=== PATIENT | female | born 1950 | race Caucasian/White ===

== ENCOUNTER 2016-10-20 09:49 | Outpatient (CLI) | payer MEDICARE ==
--- NOTE | 2016-10-21 13:47 | XRAY Report ---
EXAM: ABDOMINAL SERIES AND PA CHEST EXAM DATE: 10/20/2016 10:57 AM. CLINICAL HISTORY: Abnormal weight loss. COMPARISON: Chest 04/08/2015. Lumbar spine 08/09/2015. TECHNIQUE: 2 views abdomen and 1 view chest. FINDINGS: CHEST: Lungs/Pleura: Pulmonary hyperinflation is without significant change. Mild predominantly peripheral i nterstitial infiltrates may represent fibrosis. Asymmetric focal infiltrate at the left lateral lung base is increased and may represent superimposed acute infiltrate. Focal density within the left infr ahilar region, superimposed over the heart, was not evident previously. No gross pleural effusion. No pneumothorax. Mediastinum: Within exam limitations, cardiomediastinal contour is normal. ABDOMEN: Bowel Gas Pattern: Within normal limits. No dilated loops or abnormal fluid levels. Free Air: None. Other: S-shaped thoracolumbar scoliosis redemonstrated with increased focal dextroconvexity curvature centered at T11. New moderate height loss of the left aspect of the T11 vertebral body and new mild rightward listhesis relative to T12. There may also be some increased sclerosis within the vertebral body which could be due to a healed or healing fracture but underlying blastic lesion is not excluded . IMPRESSION: 1. Pulmonary hyperinflation redemonstrated. 2. Mild bilateral peripheral interstitial infiltrate/fibrosis redemonstrated. 3. Focal opacity at the left lateral lung base has increased and could represent superimposed acute i nfiltrate. 4. Left infrahilar focal density. Focal infiltrate, pulmonary nodule or adenopathy are considerations . CT imaging with contrast could be performed for further evaluation. 5. New moderate height loss left aspect of the T11 vertebral body compared with 08/09/2015 with some a ssociated increased vertebral body sclerosis. This could represent a healed or healing insufficiency fracture but the age is otherwise indeterminate and underlying pathologic lesion is not excluded. If further evaluation were indicated, MR imaging would be recommended. [facility] Referring Provider Line: [phone] SITE ID: [id number]
== END 2016-10-20 09:50 | disposition home or self-care (01) ==
LOC: DI 09:49
PROVIDERS: ATTEND Family Medicine
DX: Z12.89 Encounter for screening for malignant neoplasm of other sites (principal); M89.8X9 Other specified disorders of bone, unspecified site; R63.4 Abnormal weight loss; R63.0 Anorexia
CPT/HCPCS: 74022

== ENCOUNTER 2016-11-06 11:50 | Outpatient (CLI) | payer MEDICARE ==
[2016-11-06] MEDS ORDERED: IOPAMIDOL-300 100 ML VIAL ONE (12:39)
[2016-11-06] MEDS ORDERED: IOPAMIDOL-300 50 ML VIAL ONE (12:39)
--- NOTE | 2016-11-09 14:28 | CT Report ---
EXAM: CT CHEST EXAM DATE: 11/06/2016 04:35 PM. CLINICAL HISTORY: T11-T12 LISTHESIS, LT THORACIC PX RADIATING TO ABD. COMPARISONS: None. TECHNIQUE: Routine helical CT imaging was performed through the chest. IV contrast: 80 cc of Isovue 3 00. Reconstructions: Coronal and sagittal. In accordance with CT protocol optimization, one or more of the following dose reduction techniques w ere utilized for this exam: automated exposure control, adjustment of mA and/or KV based on patient s ize, or use of iterative reconstructive technique. FINDINGS: Lungs/Pleura/mediastinum: Extensive emphysematous changes are noted throughout the lungs. There is a large left hilar mass. It measures approximately 4.2 x 5.6 x 7.5 cm (image 36 of series 5 and image 2 3 of series 8). The mass is encasing the left lower lobe pulmonary vein and causing near complete occ lusion. 2 peripheral-based masses are seen within the left lower lobe of the lung. The largest measures 4.2 x 2.3 cm (image 45 of series 6). The other measures 2.5 x 1.7 cm (image 53 of series 6). Enlarged med iastinal lymph nodes are seen. A conglomeration of lymph nodes within the aortopulmonary window measu res approximately 4.2 x 3.8 cm (image 27 of series 5). There is a subcarinal lesion. It measures 4.3 x 3.4 cm (image 33 of series 5). These findings are suspicious for a primary lung cancer with mediast inal metastases. No mass is within the right lung. There is no evidence of a pleural effusion or pneumothorax. The visualized upper abdominal organs are without evidence of an enhancing mass. Specifically no adre nal lesion is identified. There is severe hydronephrosis of the right kidney. Moderate to severe prox imal hydroureter is noted. There is a calculus in the right proximal ureter measuring approximately 2 mm (image 70 of series 5). The ureter at this level measures 10 mm. There is atherosclerosis of the aorta without evidence of aneurysmal dilatation. There is a burst fracture of T11 with approximately 5 mm of retropulsion into spinal canal. There is 60-70% loss of the normal vertebral body height anteriorly. Scoliosis of the thoracic spine convex to the right is noted. IMPRESSION: Perihilar and left lower lobe lung masses with extensive mediastinal adenopathy. This is suspicious for a primary lung cancer or other malignant process. Severe hydronephrosis and proximal hydroureter of the right kidney. 2 mm calculus in the severely dilated right proximal ureter. T11 burst fracture with approximately 5 mm of retropulsion into the spinal canal and 60-70% loss of t he normal vertebral body height. Please see the CT of the thoracic spine for further characterization . [facility] Referring Provider Line: [phone] SITE ID: [id number]
--- NOTE | 2016-11-09 16:04 | CT Report ---
EXAM: CT THORACIC SPINE WITH CONTRAST EXAM DATE: 11/08/2016 05:29 PM. CLINICAL HISTORY: Left thoracic pain radiating to the abdomen COMPARISONS: Lumbar radiograph 08/09/2015. TECHNIQUE: Thin-section axial images were acquired of the thoracic spine from C7 to L1 after administ ration of intravenous contrast. IV contrast: 80 cc Isovue 300. Post-processing: Coronal and sagittal reformats. Other: None. In accordance with CT protocol optimization, one or more of the following dose reduction techniques w ere utilized for this exam: automated exposure control, adjustment of mA and/or KV based on patient s ize, or use of iterative reconstructive technique. FINDINGS: Alignment: There is 30 degrees of levoconvex scoliotic curvature centered about T11. No definite late ral subluxation. There is focal kyphosis centered about T11 measuring approximately 37 degrees. Bones: There is a complete breast fracture seen at T11 with fractures involving the superior endplate, infer ior endplate, anterior vertebral body, and posterior vertebral body. There is approximately 80% verte bral body height loss as aspect of the vertebral body. There is approximately 6 mm bony retropulsion into the T10-T11 disk space. Additionally, there is suggestion of a fracture line extending into the left pedicle and through the left pars articularis. This suggest a posterior tension band disruption. No definite fracture seen within the left pedicle or left facet. There is a suspicious lytic lesion seen within the right aspect of vertebral body measuring 13 x 11 x 13 mm (cc by TRV AP) there is posterior cortical breakthrough with enhancing soft tissue seen extend ing into the T11 space measuring up to 6 mm (series 35, image 107). Overall findings suggest pathologic compression fracture. No definite additional vertebral body fract ure seen. No definite additional suspicious vertebral body lesion. Disk Levels/Facets: At T11 there is bony retropulsion as well as posterior cortical breakthrough of metastatic disease an d spread into the epidural space. This results in severe spinal canal stenosis. Musculature: Normal. No fatty atrophy. Other: There is diffuse emphysematous changes seen within the lungs. There is a large left hilar mass seen measuring 4.0 x 5.0 cm (series 35, image C6) with spread into the mediastinum. The mass causes compression of the left main pulmonary artery as well as branches of the left main pulmonary artery. Please refer to separately dictated CT chest for further details. There are pathologically enlarged n ecrotic lymph nodes seen within the AP window largest measuring 1.3 x 2.07 m of apparent series 35, i mage 64). There are several left lower lobe pulmonary masses seen the largest mineralization to the left aspect of the left vertebral body measuring 3.7 x 2.4 x 2.47 m of apparent cc by TRV AP). There is an addit ional lesion seen near the left lower lobe lung base measuring 1.6 x 2.0 cm (series 35, image 29). IMPRESSION: 1. There is a pathologic T11 vertebral body complete burst fracture with left posterior tension band disruption (AOSpine B2). There is approximately 80% body height loss of the left aspect vertebral bod y. There is posterior cortical breakthrough of disease with spread into the T11 spinal canal in combi [place] with bony retropulsion results in severe spinal canal stenosis. Consider MR thoracic spine wit h contrast for further evaluation. 2. No definite additional fracture seen. 3. There is 30 degrees of levoconvex scoliotic curvature centered about T11. No definite lateral subl uxation. There is focal kyphosis centered about T11 measuring approximately 37 degrees. 4. There is a large left hilar mass with extension into the mediastinum resulting in compression of t he left main pulmonary artery and branches. There is an additional 2 left lower lobe pulmonary masses seen. Please refer to separately dictated CT chest 11/06/2016 for further description of chest findin gs. [facility] The above findings were discussed with Don Oreilly by Dr. Shayne King at 15:59 hrs on 10/20 04/06. Referring Provider Line: [phone] SITE ID: [id number]
== END 2016-11-06 11:51 | disposition home or self-care (01) ==
LOC: DI 11:50
PROVIDERS: ATTEND Family Medicine
DX: R91.8 Other nonspecific abnormal finding of lung field (principal); N13.2 Hydronephrosis with renal and ureteral calculous obstruction; M84.48XA Pathological fracture, other site, initial encounter for fracture; M40.204 Unspecified kyphosis, thoracic region
CPT/HCPCS: 71260; 72129; Q9967

== ENCOUNTER 2016-12-31 09:00 | Day surgery (SDC) | payer MEDICARE ==
[~2016-12-31 09:00] MED LIST: ceFAZolin 2 GM/50 ML 2 GM/50 ML BAG IV ONE
[2016-12-31] MEDS ORDERED: LACTATED RINGERS 1,000 ML IV ONE ×2 (09:25→12:29)
[2016-12-31] MEDS ORDERED: LIDOCAINE 1% 50 ML MDV SUBQ ONE (11:32)
[2016-12-31] MEDS ORDERED: BUPIVACAINE 0.5% PF 30 ML VIAL INFIL ONE (11:33)
[2016-12-31] MEDS ORDERED: PROPOFOL 200 MG/20 ML VIAL IVP ONE (11:50)
[2016-12-31] MEDS ORDERED: fentaNYL 100 MCG/2 ML VIAL IVP ONE (11:50)
--- NOTE | 2016-12-31 12:43 | XRAY Report ---
INTRAOPERATIVE IMAGING OF PORT PLACEMENT: 12/31/2016 CLINICAL INDICATION: Port placement. FINDINGS: A single intraoperative matrix image demonstrates a left jugular catheter terminating in t he distal superior vena cava. IMPRESSION: INTRAOPERATIVE IMAGING OF PORT PLACEMENT. 14 SECONDS OF FLUOROSCOPY TIME WAS PROVIDED TO DR. PERSAUD; 1 SPOT IMAGE OBTAINED. JOB #: [id number] EXT JOB #:[id number]
--- NOTE | 2016-12-31 13:17 | XRAY Report ---
FRONTAL CHEST: 12/31/2016 CLINICAL INDICATION: Port placement. FINDINGS: Frontal view of the chest demonstrates a normal cardiac silhouette. The left jugular port terminates in the superior vena cava distally. The lungs demonstrate mild fibrosis. No focal consolid ation, effusion, or pneumothorax is present. Please also refer to chest CT of 11/06/2016. IMPRESSION: LEFT JUGULAR PORT TERMINATING IN THE SUPERIOR VENA CAVA DISTALLY. JOB #: [id number] EXT JOB #:[id number]
[2016-12-31 13:45] VITALS: BP 122/78
--- NOTE | 2017-01-01 03:32 | OPERATIVE REPORT ---
DATE OF SURGERY: 12/31/2016 00:00:00 SURGEON: Ruth Dao MD. PREOPERATIVE DIAGNOSIS: Metastatic lung cancer. POSTOPERATIVE DIAGNOSIS: Metastatic lung cancer. NAME OF PROCEDURE: Port-A-Cath placement. INDICATION FOR PROCEDURE: This is a 66-year-old female with metastatic colon cancer who will be undergoing chemotherapy. FINDINGS: After obtaining informed consent from the patient, she was brought into the operating room and positioned on the operating table in the supine position with a shoulder roll placed. She was administered sedation. She was then prepped and draped in the usual sterile fashion and a time-out was taken according to protocol. Under ultrasound guidance, the left internal jugular vein was accessed on the first attempt and a wire was threaded easily. Upon threading the wire, the fluoroscopy machine that was was not working and a second fluoroscopy machine had to be brought in. I eventually was able to view the guidewire under fluoroscopic guidance and it was noted to be crossing the midline and descending towards the diaphragm. The MediPort pocket was then created by creating a 2 cm incision in the left chest wall after injecting 10 mL of lidocaine. This was dissected down to the pectoralis muscle fascia and a pocket was created inferiorly. Lidocaine was then inserted into the tunneling region and the tunneling device was utilized to bring the catheter from the MediPort pocket site to the catheter insertion site. The dilator and peel-away sheath were inserted over the guidewire. The guidewire and dilator catheter were removed, and the catheter placed in through the peel-away sheath. The sheath was then peeled away. The catheter was then again viewed on fluoroscopy and was pulled back slightly allowing the tip of the catheter to sit at the SVC/ IVC junction. The catheter was again cut to the appropriate length and the port attached to the catheter. It was then sutured into place to the pectoralis fascia using 2 interrupted 2-0 Prolene sutures. The catheter was accessed with the Laureano needle and was noted to have good blood return and easy flow with heparinized saline. The subcutaneous tissue was then reapproximated with 3-0 Vicryl and the skin closed with 4-0 Monocryl. Dermabond was applied to both incisions. The patient was then taken to recovery room in stable condition. A postoperative chest x-ray demonstrated no evidence of pneumothorax and good positioning of the catheter. Specimen: None Complication: Failure of flouroscopy machine JOB #: [id number] EXT JOB #:[id number] [facility]
== END 2016-12-31 09:01 | disposition home or self-care (01) ==
LOC: SDS 09:00
PROVIDERS: ATTEND Surgery
PROC: 05HN33Z Insertion of Infusion Device into Left Internal Jugular Vein, Percutaneous Approach (ICD-10-PCS; 2016-12-31)
PROC: 0JH60WZ Insertion of Totally Implantable Vascular Access Device into Chest Subcutaneous Tissue and Fascia, Open Approach (ICD-10-PCS; principal; 2016-12-31 10:30)
DX: C34.90 Malignant neoplasm of unspecified part of unspecified bronchus or lung (principal); J44.9 Chronic obstructive pulmonary disease, unspecified; Z87.891 Personal history of nicotine dependence
CPT/HCPCS: 36561; 71010; C1788; J0690; J7120

== ENCOUNTER 2017-04-01 10:37 | Outpatient (CLI) | payer MEDICARE ==
[2017-04-01] MEDS ORDERED: IOPAMIDOL-300 100 ML VIAL ONE (10:55)
[2017-04-01] MEDS ORDERED: IOPAMIDOL-300 50 ML VIAL ONE (10:55)
[2017-04-01] MEDS ORDERED: IOPAMIDOL-300 100 ML VIAL IVP ONE (12:29)
[2017-04-01] MEDS ORDERED: IOPAMIDOL-300 50 ML VIAL PO ONE (12:29)
[2017-04-01] MEDS ORDERED: SODIUM CHLORIDE FLUSH 0.9% 10 ML SYRINGE ONE (12:52)
--- NOTE | 2017-04-01 15:47 | CT Report ---
CT OF CHEST WITH CONTRAST: 04/01/2017 CLINICAL INDICATION: Lung cancer. TECHNIQUE: Axial CT images of the chest were obtained with 80 mL Isovue 300 intravenously. COMPARISON: 02/04/2017. FINDINGS: The heart and great vessels are unremarkable. Previously seen adenopathy continues to regress. The previously identified mass in the left lower lobe now measures 1.5 x 1.0 cm (previously 3.4 x 1.6 cm), and the more lateral left lower lobe lesion now measures 1.2 x 0.8 cm (1.5 x 1.3 cm previously). Extensive emphysema is unchanged. No effusion or pneumothorax is present. Osseous structures demonstrate postsurgical and degenerative changes. IMPRESSION: DECREASING SIZE OF LEFT LOWER LOBE PULMONARY LESIONS AND MEDIASTINAL ADENOPATHY. NO NEW ABNORMALITY. In accordance with CT protocol optimization, one or more of the following dose reduction techniques were utilized for this exam: automated exposure control, adjustment of mA and/or KV based on patient size, or use of iterative reconstructive technique. TD: 04/01/2017 15:46
--- NOTE | 2017-04-01 15:51 | CT Report ---
CT OF THE ABDOMEN AND PELVIS WITH CONTRAST: 04/01/2017 CLINICAL INDICATION: Lung cancer followup. COMPARISON: 02/04/2017 TECHNIQUE: Axial CT images of the abdomen and pelvis were obtained with 80 mL Isovue 300 intravenously as well as oral contrast. FINDINGS: ABDOMEN: Marked right hydronephrosis is again seen. The left kidney demonstrates a nonobstructing 3 mm upper pole calculus, and a lower pole cyst. The liver demonstrates decrease in size of the hypodensity in the lateral right lobe, now measuring 8 mm (previously 13 mm). Other smaller hypodensities in the liver are stable. No new hepatic lesion is seen. The spleen, pancreas, and adrenal glands are unremarkable. The gallbladder is not dilated. No bowel dilatation, free gas, or free fluid is present. PELVIS: Right hydroureter again extends into the pelvis. Consider urologic consultation. No pelvic adenopathy or free fluid is present. Osseous structures demonstrate degenerative and postsurgical changes. IMPRESSION: 1. INTERVAL DECREASE IN SIZE OF THE LARGEST HYPODENSITY IN THE LATERAL RIGHT LOBE OF THE LIVER. 2. PERSISTENT RIGHT HYDRONEPHROSIS AND HYDROURETER. CONSIDER UROLOGIC REFERRAL. In accordance with CT protocol optimization, one or more of the following dose reduction techniques were utilized for this exam: automated exposure control, adjustment of mA and/or KV based on patient size, or use of iterative reconstructive technique. TD: 04/01/2017 15:50
== END 2017-04-01 10:38 | disposition home or self-care (01) ==
LOC: DI 10:37
PROVIDERS: ATTEND Internal Medicine Hematology & Oncology
DX: C34.90 Malignant neoplasm of unspecified part of unspecified bronchus or lung (principal); K76.9 Liver disease, unspecified; N13.30 Unspecified hydronephrosis; N20.0 Calculus of kidney
CPT/HCPCS: 71260; 74177; Q9967

== ENCOUNTER 2017-04-03 13:30 | Outpatient (CLI) | payer MEDICARE ==
[2017-04-03] MEDS ORDERED: GADOBUTROL 7.5 MMOL/7.5 ML VIAL IVP ONE (14:23)
--- NOTE | 2017-04-03 16:04 | MRI Report ---
EXAM: MRI BRAIN WITHOUT AND WITH CONTRAST EXAM DATE: 04/03/2017 02:33 PM. CLINICAL HISTORY: Lung cancer. COMPARISON: None. TECHNIQUE: Multiplanar, multisequence T1-weighted and fluid-sensitive MR sequences of the brain were performed. Sequences optimized for routine evaluation. Other: None. IV Contrast: Without and with 3.5 mm Gadavist. FINDINGS: Brain Volume: Normal for age. Parenchyma: No acute infarct or hemorrhage. Probable chronic microhemorrhages in the right temporal l obe and left cerebellum. No mass-effect, midline shift or abnormal subdural fluid collection. Moderat edel prominent multifocal cerebral white matter disease. Numerous scattered foci of patchy, nodular an d confluent T2 hyperintensity are present in both cerebral hemispheres, mainly involving the deep and periventricular regions. There is also fairly prominent amorphous T2 hyperintensity throughout the p ons. No intracranial enhancing or space-occupying mass or nodule, no evidence for intracranial metastatic disease. Contrast opacification of the major dural venous sinuses is present as expected. Ventricles/Cisterns: No hydrocephalus. Orbits: Symmetric and unremarkable. Sella Turcica: Occupying mass in the region of the pituitary fossa. IAC: No enhancing or space-occupying lesion. Vasculature: The major arterial skull base flow voids are present. Sinuses: No acute-appearing sinus or mastoid disease. Bones: Partially visualized multilevel hypertrophic degenerative cervical spinal spondylosis. No evid ence for focal pathologic-appearing marrow signal changes in the skull or clivus. Other: None. IMPRESSION: 1.No evidence for enhancing intracranial metastatic disease. 2. No acute infarct. 3. Prominent white matter disease above and below the tentorium, nonspecific, likely attributable to aging and chronic microangiopathy. 4. Probable chronic microhemorrhages of the right temporal lobe and left cerebellum. 5. Prominent degenerative changes in the cervical spinal column. [facility] Referring Provider Line: [phone] SITE ID: [id number]
== END 2017-04-03 13:31 | disposition home or self-care (01) ==
LOC: DI 13:30
PROVIDERS: ATTEND Internal Medicine Hematology & Oncology
DX: C34.90 Malignant neoplasm of unspecified part of unspecified bronchus or lung (principal); R90.89 Other abnormal findings on diagnostic imaging of central nervous system; M47.9 Spondylosis, unspecified
CPT/HCPCS: 70553

== ENCOUNTER 2017-05-20 06:08 | Emergency (ER) | payer MEDICARE ==
[2017-05-20] MEDS ORDERED: SODIUM CHLORIDE 0.9% 500 ML IV ONE ×2 (06:28→08:03)
[2017-05-20] MEDS ORDERED: IPRATROPIUM/ALBUTEROL 3 ML NEB INH STA (06:29)
[2017-05-20 06:43] LABS: BASOPHILS # (AUTO) 0.1 10^3/uL (0.0-0.1); BASOPHILS % (AUTO) 0.9 %; EOSINOPHILS % (AUTO) 0.5 %; HGB - HEMOGLOBIN 10.7 g/dL (12.0-16.0); LYMPHOCYTES # (AUTO) 1.9 10^3/uL (1.5-3.5); LYMPHOCYTES % (AUTO) 20.1 %; MEAN CORPUSCULAR HEMOGLOBIN 33.6 pg (27.0-31.0); MEAN CORPUSCULAR HGB CONC 32.9 g/dL (32.0-36.0); MEAN CORPUSCULAR VOLUME 102.1 fL (81.0-99.0); MEAN PLATELET VOLUME 7.8 fL (7.9-10.8); MONOCYTES # (AUTO) 1.1 10^3/uL (0.0-1.0); MONOCYTES % (AUTO) 11.2 %; NEUTROPHILS # (AUTO) 6.4 10^3/uL (1.5-6.6); NEUTROPHILS % (AUTO) 67.3 %; PLT - PLATELET COUNT 260 10^3/uL (130-450); RED CELL DISTRIBUTION WIDTH 15.7 % (12.0-15.0); WHITE BLOOD COUNT 9.5 x10^3/uL (4.8-10.8)
--- NOTE | 2017-05-20 06:51 | ED Physician Documentation ---
PD HPI DYSPNEA - Stated complaint Stated Complaint: SOA - Chief complaint Chief Complaint: Resp - History obtained from History obtained from: Patient - History of Present Illness Timing - onset: How many weeks ago (1) Timing - details: Gradual onset Worsened by: Coughing Associated symptoms: Cough Recently seen: Clinic - Treatment prior to arrival Treatment prior to arrival: Zithromax - Additional information Additional information: The patient is a 66-year-old female with history of COPD and small cell lung cancer, who presents with cough of at least one week's duration. She reports scant sputum production, but increasing shortness of breath. Coughing causes pain in her back where she is 5 months status post placement of House rods for lower thoracic vertebral body disintegration. In addition she complains of sore throat and right earache. She denies fever, headache, abdominal pain, nausea or vomiting. She was seen by primary physician 5 days ago and was started on Zithromax for her cough. She last was treated with chemotherapy about 1 month ago. Review of Systems Constitutional: denies: Fever Nose: denies: Congestion Throat: reports: Sore throat Cardiac: denies: Chest pain / pressure Respiratory: reports: Dyspnea, Cough GI: denies: Abdominal Pain, Nausea, Vomiting : denies: Dysuria Skin: denies: Rash Musculoskeletal: reports: Back pain Neurologic: reports: Generalized weakness. 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 HEENT: Tonsil/Adenoidectomy - Present Medications Home Medications: Ambulatory Orders Medication Instructions Recorded Confirmed Estradiol 2 mg PO DAILY 04/08/15 05/14/17 Omeprazole 1 cap PO DAILY 04/08/15 05/14/17 traMADol [Ultram] 1 - 2 tab PO DAILY PM 04/08/15 05/14/17 Dexamethasone 8 mg PO DAILYX3 MDD s/p chemo x 3 12/27/16 05/14/17 days Ondansetron [Ondansetron Odt] 4 mg PO Q4H PRN 12/27/16 05/14/17 Prochlorperazine Maleate 10 mg PO Q6H PRN 12/27/16 05/14/17 [Compazine] Simvastatin 20 mg PO DAILY 12/28/16 05/14/17 oxyCODONE [Roxicodone] 5 - 10 mg PO Q4H PRN 01/29/17 05/14/17 Albuterol Sulfate [Proventil Hfa 1 - 2 puffs INH Q4H PRN #1 inhaler 05/20/17 Inhaler] Doxycycline Monohydrate 100 mg PO BID #14 tablet 05/20/17 predniSONE [Prednisone] 30 mg PO DAILY #15 tablet 05/20/17 - Allergies Allergies/Adverse Reactions: Allergies Allergy/AdvReac Type Severity Reaction Status Date / Time Sulfa (Sulfonamide Allergy Severe Edema Verified 05/20/17 06:15 Antibiotics) epinephrine AdvReac palpitation Verified 05/20/17 06:15 s - Social History Does the pt smoke?: Yes Smoking Status: Current every day smoker Does the pt drink ETOH?: No Does the pt have substance abuse?: No - Immunizations Immunizations are current?: Yes - POLST Patient has POLST: No PD ED PE NORMAL - Vitals Vital signs reviewed: Yes (Tachycardic) - General General: Alert and oriented X 3, Other (Frail appearing) - HEENT HEENT: Atraumatic, Moist mucous membranes, Pharynx benign, Other (Right tympanic membrane is dull and bulging, with loss of landmarks.) - Neck Neck: Supple, no meningeal sign, No adenopathy, No JVD - Cardiac Cardiac: Other (rapid rate, regular rhythm) - Respiratory Respiratory: Other (Faint crackles on the right, with few scattered expiratory and end-inspiratory wheezes. No rales.) - Abdomen Abdomen: Soft, Non tender - Back Back: Other (Well healed surgical scar in lower thoracic region.) - Derm Derm: No rash - Extremities Extremities: No edema, No calf tenderness / cord - Neuro Neuro: Alert and oriented X 3, No motor deficit, No sensory deficit Results - Vitals Vitals: Vital Signs - 24 hr 05/20/17 05/20/17 05/20/17 06:12 06:29 07:13 Temperature 36.8 C Heart Rate 131 H 100 104 H Respiratory 14 19 18 Rate Blood Pressure 139/111 H 144/71 H O2 Saturation 93 98 05/20/17 08:23 Temperature Heart Rate 108 H Respiratory 28 H Rate Blood Pressure 130/81 H O2 Saturation 100 Oxygen O2 Source Nasal cannula Oxygen Flow Rate 2 - EKG (time done) 06:36 Rate: Rate (enter#) (109) Rhythm: Sinus tachycardia, LAE Callao: Normal QRS: Low voltage Ischemia: Normal ST segments Computer interpretation: Agree with computer - Labs Labs: Laboratory Tests 05/20/17 05/20/17 05/20/17 06:30 06:30 06:30 WBC 9.5 RBC 3.20 L Hgb 10.7 L Hct 32.6 L MCV 102.1 H MCH 33.6 H MCHC 32.9 RDW 15.7 H Plt Count 260 MPV 7.8 L Neut # 6.4 Lymph # 1.9 Day # 1.1 H Eos # 0.0 Baso # 0.1 Absolute Nucleated RBC 0.00 Nucleated RBC % 0.0 Sodium 135 Potassium 3.7 Chloride 104 Carbon Dioxide 19 L Anion Gap 12.0 BUN 29 H Creatinine 1.0 Estimated GFR (MDRD) 56 L Glucose 108 H Lactic Acid Calcium 9.2 Total Bilirubin 0.3 AST 35 ALT 27 Alkaline Phosphatase 80 B-Natriuretic Peptide 15 Total Protein 8.6 H Albumin 3.9 Globulin 4.7 H Albumin/Globulin Ratio 0.8 L Lipase 29 05/20/17 06:30 WBC RBC Hgb Hct MCV MCH MCHC RDW Plt Count MPV Neut # Lymph # Day # Eos # Baso # Absolute Nucleated RBC Nucleated RBC % Sodium Potassium Chloride Carbon Dioxide Anion Gap BUN Creatinine Estimated GFR (MDRD) Glucose Lactic Acid 1.2 Calcium Total Bilirubin AST ALT Alkaline Phosphatase B-Natriuretic Peptide Total Protein Albumin Globulin Albumin/Globulin Ratio Lipase - Rads (name of study) 2 -view CXR Radiology: Prelim report reviewed, EMP read contemporaneously, See rad report (1 ) Right basilar infiltrate/atelectasis. 2) Faint visualization of left lower lung masses. 3) COPD.) PD MEDICAL DECISION MAKING - ED course Complexity details: reviewed old records, reviewed results, re-evaluated patient , considered differential, d/w patient ED course: The patient's presentation is most consistent with right lower lobe pneumonia, as seen by infiltrate on chest x-ray. In addition she has wheezing consistent with exacerbation of COPD. Her presentation does not suggest pulmonary embolus. There is no evidence of congestive heart failure. Further diagnoses include right otitis media, and history of lung cancer, 1 month status post chemotherapy. Treatment in the emergency department included administration of DuoNeb nebulizer followed later with Xopenex nebulizer treatment. Dexamethasone 10 mg was administered orally, ceftriaxone 1 g was administered IV, and normal saline 500 mL was administered IV. The patient's symptoms improved with the above treatment. She felt subjectively improved, and on reexamination she has improved air movement on auscultation of her chest. She is being discharged with prescriptions for albuterol inhaler, doxycycline, and prednisone. I discussed with her the diagnosis, antibiotic treatment and outpatient follow-up, as well as potentially worrisome signs or symptoms that should prompt reevaluation in the emergency department. Departure - Departure Disposition: 01 Home, Self Care Clinical Impression: COPD exacerbation, History of lung cancer Pneumonia Qualifiers: Pneumonia type: due to unspecified organism Laterality: right Lung location: lower lobe of lung Qualified Code(s): J18.1 - Lobar pneumonia, unspecified organism Right otitis media Qualifiers: Otitis media type: suppurative Chronicity: acute Recurrence: not specified as recurrent Spontaneous tympanic membrane rupture: without spontaneous rupture Qualified Code(s): H66.001 - Acute suppurative otitis media without spontaneous rupture of ear drum, right ear Condition: Stable Instructions: ED Otitis Media Acute Adult, ED Pneumonia Adult Follow-Up: GREGG ZAMAN [Primary Care Provider] - Prescriptions: Albuterol Sulfate [Proventil Hfa Inhaler] 1 - 2 puffs INH Q4H PRN #1 inhaler PRN Reason: Shortness Of Air/Wheezing Doxycycline Monohydrate 100 mg PO BID #14 tablet predniSONE [Prednisone] 30 mg PO DAILY #15 tablet Comments: Take doxycycline twice daily as prescribed. Use the albuterol inhaler as frequently as every 2-4 hours if needed for shortness of breath or wheezing. Take prednisone daily for five as prescribed. Follow up with your primary physician within 1 week. Call to schedule an appointment. Return to the emergency department if you develop increasing difficulty breathing, or otherwise worsening symptoms. Discharge Date/Time: 05/20/17 09:29
[2017-05-20 06:57] LABS: ALBUMIN 3.9 g/dL (3.2-5.5); ALBUMIN/GLOBULIN RATIO 0.8 (1.0-2.2); BILIRUBIN,TOTAL 0.3 mg/dL (0.2-1.0); CALCIUM 9.2 mg/dL (8.5-10.3); TOTAL PROTEIN 8.6 g/dL (6.7-8.2)
--- NOTE | 2017-05-20 07:56 | XRAY Report ---
EXAM: CHEST RADIOGRAPHY EXAM DATE: 05/20/2017 07:39 AM. CLINICAL HISTORY: Cough with dyspnea. History of lung cancer COMPARISON: 04/01/2017. TECHNIQUE: 2 views. FINDINGS: Lungs/Pleura: Right basilar infiltrate, atelectasis Left lower lobe lung masses not as well seen No p leural effusion. No pneumothorax. Increased volumes. Mediastinum: Heart and mediastinal contours are unremarkable. Other: Left-sided Port-A-Cath tip in the lower SVC. Postop thoracic spine surgery. IMPRESSION: 1. Right basilar infiltrate/atelectasis. 2. Faint visualization of left lower lung masses. 3.. COPD [facility] Referring Provider Line: [phone] SITE ID: [id number]
--- NOTE | 2017-05-20 07:56 | XRAY Preliminary Report ---
Exam: XR CHEST 2 VIEW X-RAY IMPRESSION: 1. Right basilar infiltrate/atelectasis. 2. Faint visualization of left lower lung masses. 3.. COPD [facility] SITE ID: [id number]
[2017-05-20] MEDS ORDERED: cefTRIAXone 1 GM VIAL IVP STA (08:02)
[2017-05-20] MEDS ORDERED: LEVALBUTEROL 1.25 MG/3 ML NEB INH STA (08:03)
[2017-05-20] MEDS ORDERED: DEXAMETHASONE 10 MG/ML VIAL PO STA (08:04)
[2017-05-20 08:24] VITALS: BP 130/81
== END 2017-05-20 09:29 | disposition home or self-care (01) ==
LOC: ED 06:08
DX: J18.9 Pneumonia, unspecified organism (principal); H66.001 Acute suppurative otitis media without spontaneous rupture of ear drum, right ear; J44.1 Chronic obstructive pulmonary disease with (acute) exacerbation; Z85.118 Personal history of other malignant neoplasm of bronchus and lung; E78.00 Pure hypercholesterolemia, unspecified; M06.9 Rheumatoid arthritis, unspecified; K21.9 Gastro-esophageal reflux disease without esophagitis; F17.200 Nicotine dependence, unspecified, uncomplicated
CPT/HCPCS: 36415; 71046; 80053; 83605; 83690; 83880; 85025; 93005; 94640; 96361; 96374; 99284

== ENCOUNTER 2017-05-22 12:11 | Inpatient (IN) | payer MEDICAID, MEDICARE ==
[2017-05-22] MEDS ORDERED: PIPERACILLIN/TAZOBACTAM 3.375 GM in SODIUM CHLORIDE 0.9% MINIBAG 100 ML IV STA (12:28)
[2017-05-22] MEDS ORDERED: DEXAMETHASONE 10 MG/ML VIAL PO STA (12:29)
[2017-05-22] MEDS ORDERED: ALBUTEROL NEB 2.5 MG/3 ML INH STA (12:29)
--- NOTE | 2017-05-22 12:39 | ED Physician Documentation ---
History of Present Illness - Stated complaint Stated Complaint: DIFF BREATHING - Chief complaint Chief Complaint: Resp - Additonal information Additional information: hx from pt 66 f hx COPD known metastatic stage 4 lung cancer, last chemo approx 4 weeks ago due to started radiation recent cough sx saw PMD dx bronchitis rx an ab then to ER 2 days ago dx pna dc on zmax and doxy and also steroids and nebs got worse to PMD today severe resp distress and hypoxia given a steroid shot and 2 nebs, still hypoxic sent to ED POV arrives in sig resp distress has her POLST with her - full code - but would NOT WANT TO BE INTUBATED Review of Systems Constitutional: reports: Fatigue. denies: Fever Cardiac: denies: Chest pain / pressure Respiratory: reports: Dyspnea, Cough GI: reports: Other (poor appetite). 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, 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 HEENT: Tonsil/Adenoidectomy - Present Medications Home Medications: Ambulatory Orders Medication Instructions Recorded Confirmed Estradiol 1 mg PO DAILY 04/08/15 05/22/17 Omeprazole 40 mg PO DAILY 04/08/15 05/22/17 traMADol [Ultram] 1 - 2 tab PO DAILY PM 04/08/15 05/14/17 Dexamethasone 8 mg PO DAILYX3 MDD s/p chemo x 3 12/27/16 05/14/17 days Ondansetron [Ondansetron Odt] 4 mg PO Q4H PRN 12/27/16 05/14/17 Prochlorperazine Maleate 10 mg PO Q6H PRN 12/27/16 05/14/17 [Compazine] Simvastatin 20 mg PO DAILY 12/28/16 05/14/17 oxyCODONE [Roxicodone] 5 - 10 mg PO Q4H PRN 01/29/17 05/14/17 Albuterol Sulfate [Proventil Hfa 1 - 2 puffs INH Q4H PRN #1 inhaler 05/20/17 Inhaler] Doxycycline Monohydrate 100 mg PO BID #14 tablet 05/20/17 predniSONE [Prednisone] 30 mg PO DAILY #15 tablet 05/20/17 Gabapentin [Gabapentin] 300 mg PO QPM 05/22/17 05/22/17 - Allergies Allergies/Adverse Reactions: Allergies Allergy/AdvReac Type Severity Reaction Status Date / Time Sulfa (Sulfonamide Allergy Severe Edema Verified 05/22/17 12:20 Antibiotics) epinephrine AdvReac palpitation Verified 05/20/17 06:15 s - Social History Does the pt smoke?: Yes Smoking Status: Current every day smoker Does the pt drink ETOH?: No Does the pt have substance abuse?: No - Immunizations Immunizations are current?: Yes - POLST Patient has POLST: No PD ED PE NORMAL - Vitals Vital signs reviewed: Yes (hypoxic tachypneic) - General General: Other (resp distress) - Neck Neck: Supple, no meningeal sign - Cardiac Cardiac: RRR, Other (port s infection) - Respiratory Respiratory: Other (mishel ronchi and wheezes and resp distress) - Abdomen Abdomen: Soft, Non tender - Derm Derm: Normal color - Extremities Extremities: No deformity, No edema, No calf tenderness / cord Results - Vitals Vitals: Vital Signs - 24 hr 05/22/17 05/22/17 05/22/17 12:15 12:18 12:21 Temperature 36.8 C Heart Rate 112 H 97 Respiratory 34 H 15 Rate Blood Pressure 166/122 H 139/93 H O2 Saturation 98 81 L 97 05/22/17 05/22/17 05/22/17 12:33 13:12 13:41 Temperature Heart Rate 121 H 109 H Respiratory 16 18 Rate Blood Pressure 144/94 H O2 Saturation 96 97 Oxygen O2 Source Nasal cannula Oxygen Flow Rate 4 - EKG (time done) 1220 Rate: Rate (enter#) (88) Rhythm: NSR, Other (PACs PVCs) Ischemia: Non specific changes - Labs Labs: Laboratory Tests 05/22/17 05/22/17 05/22/17 12:58 12:58 12:58 WBC 15.8 H RBC 3.29 L Hgb 11.2 L Hct 33.8 L MCV 102.7 H MCH 34.0 H MCHC 33.1 RDW 15.8 H Plt Count 285 MPV 7.9 Neut # 13.4 H Lymph # 1.6 Ransom # 0.7 Eos # 0.0 Baso # 0.0 Absolute Nucleated RBC 0.02 Nucleated RBC % 0.1 Sodium 134 L Potassium 3.5 Chloride 102 Carbon Dioxide 20 L Anion Gap 12.0 BUN 30 H Creatinine 0.8 Estimated GFR (MDRD) 72 L Glucose 127 H Lactic Acid 2.8 H Calcium 9.5 Total Bilirubin 0.4 AST 37 ALT 26 Alkaline Phosphatase 82 Total Protein 8.4 H Albumin 3.9 Globulin 4.5 H Albumin/Globulin Ratio 0.9 L Lipase 19 L - Rads (name of study) CXR Radiology: See rad report (no change from 2 days ago (that was read as possible R basilar infiltrate and todays read is no change)) PD MEDICAL DECISION MAKING - ED course ED course: known pna known COPD severe resp distress despite steroids and nebs given IV zosyn upon arrival 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
[2017-05-22] MEDS ORDERED: CHERRY SYRUP 10 ML UDC PO ONE (12:50)
[2017-05-22 13:11] LABS: BASOPHILS % (AUTO) 0.2 %; HGB - HEMOGLOBIN 11.2 g/dL (12.0-16.0); LYMPHOCYTES # (AUTO) 1.6 10^3/uL (1.5-3.5); LYMPHOCYTES % (AUTO) 10.4 %; MEAN CORPUSCULAR HGB CONC 33.1 g/dL (32.0-36.0); MEAN CORPUSCULAR VOLUME 102.7 fL (81.0-99.0); MEAN PLATELET VOLUME 7.9 fL (7.9-10.8); MONOCYTES # (AUTO) 0.7 10^3/uL (0.0-1.0); MONOCYTES % (AUTO) 4.1 %; NEUTROPHILS # (AUTO) 13.4 10^3/uL (1.5-6.6); NEUTROPHILS % (AUTO) 85.3 %; PLT - PLATELET COUNT 285 10^3/uL (130-450); RED BLOOD COUNT 3.29 10^6/uL (4.20-5.40); RED CELL DISTRIBUTION WIDTH 15.8 % (12.0-15.0); WHITE BLOOD COUNT 15.8 x10^3/uL (4.8-10.8)
--- NOTE | 2017-05-22 13:21 | XRAY Report ---
EXAM: CHEST RADIOGRAPHY EXAM DATE: 05/22/2017 01:08 PM. CLINICAL HISTORY: Soa. COMPARISON: 05/20/2017 and 04/08/2015. TECHNIQUE: 1 view. FINDINGS: Lungs/Pleura: Diffuse bilateral coarse interstitial opacities have not significantly changed compared to priors. No focal consolidation evident. No pleural effusion. No pneumothorax. Mediastinum: Within exam limitations, the cardiomediastinal contour is normal. Other: Post surgical changes from thoracic spinal fusion. Left chest port catheter tip is obscured cl eared by the surgical hardware but is likely in the lower SVC. IMPRESSION: No radiographically apparent acute abnormality in the chest. No significant change from p rior. [facility] Referring Provider Line: [phone] SITE ID: [id number]
[2017-05-22] MEDS ORDERED: LORazepam 0.5 MG TABLET PO STA (13:24)
[2017-05-22 13:25] LABS: ALBUMIN 3.9 g/dL (3.2-5.5); ALBUMIN/GLOBULIN RATIO 0.9 (1.0-2.2); BILIRUBIN,TOTAL 0.4 mg/dL (0.2-1.0); CALCIUM 9.5 mg/dL (8.5-10.3); CREATININE 0.8 mg/dL (0.4-1.0); TOTAL PROTEIN 8.4 g/dL (6.7-8.2)
[2017-05-22] MEDS ORDERED: SODIUM CHLORIDE 0.9% 2,000 ML IV ONE (14:13)
[2017-05-22] MEDS ORDERED: ACETAMINOPHEN 325 MG TABLET PO PRN (15:31)
[2017-05-22] MEDS ORDERED: ZOLPIDEM 5 MG TABLET PO PRN (15:31)
[2017-05-22] MEDS ORDERED: ONDANSETRON 4 MG/2 ML VIAL IVP PRN (15:31)
--- NOTE | 2017-05-22 16:52 | HISTORY & PHYSICAL EXAMINATION ---
DATE OF SERVICE: 05/22/2017 Physician: Carlee Wakefield MD CHIEF COMPLAINT: Shortness of breath and hypoxia. HISTORY OF PRESENT ILLNESS: Patient is a pleasant 66-year-old white female with past medical history of cigarette smoking and metastatic stage IV lung cancer. She sees the oncologist, Dr. Li, and receives chemotherapy. Last time she received chemotherapy was 4 weeks ago. The patient reported that about a month ago she came down with a "cold." Since then she was treated on outpatient antibiotics multiple times, but overall she did not improve. Initially, she saw her primary care provider. She also saw her oncologist. Subsequently, 2 days ago on 05/20/2017, she was seen at the ER. At that time, she was given Zithromax and doxycycline. Prior to that, she already finished different antibiotics. She also was given steroid as outpatient, although she cannot tell me exactly when the steroid was started. She reports that taking antibiotics for the past month on and off, her cough and congestion decreased; however, she remained with chest tightness, developed worsening shortness of breath and wheezing. She had a scheduled appointment at primary care physician's office on 05/22/2017, and when she showed up for this regular appointment, she was found in significant respiratory distress. She was given nebulizer treatment and also a steroid injection. She, however, did not improve. Her oxygen saturation at the office was found in the 70s or 80s on room air. Notably, she does not have history of being oxygen dependent. Due to significant hypoxia, she was sent to the ER for further evaluation. Upon presentation to the ER, she was in distress with increased respiratory rate. Initial respiration rate was 34, heart rate was up to 120. Oxygen saturation on room air was 80, temperature was 36.8, blood pressure 166/122. In the ER, the patient received further nebulizer treatments, she received Solu-Medrol, received 2 liters IV fluid, and she also received Zosyn. REVIEWING EMERGENCY ROOM WORKUP: Chest x-ray did not show an infiltrate. Laboratories showed elevated white blood cell count at 15.8, hemoglobin was 11.2. Lactic acid was 2.8. Sodium 134, potassium 3.5, CO2 was 20, anion gap 12, BUN 30, creatinine 0.8. Albumin was 3.9. Liver function tests unremarkable. Lipase was normal. Patient arrived with a POLST form, which was filled out about a week ago by the primary care physician. The first section of the POLST form listed that this patient should receive cardiopulmonary resuscitation. When I spoke with her, however, she clearly stated that she would not want to be intubated or resuscitated not even in the case of any emergency. She said that under no condition she would accept intubation. It was discussed that in the setting of emergency when there is cardiopulmonary arrest and people receive CPR they cannot breathe, therefore, airway protection becomes necessary. Patient clearly stated that under no condition she would consider intubation and she does not want to receive shocks, neither she would want to receive cardiopulmonary resuscitation with chest compressions. Therefore, it was determined that she needs a new POLST form. I went through the form with her and a new form was filled out according to her current wishes. PAST MEDICAL HISTORY 1. Chronic obstructive pulmonary disease, lifelong smoker, used to smoke more than 1 pack of cigarettes per day. 2. Metastatic stage IV small cell lung cancer, which was diagnosed in July 2016. Notably, the patient presented at that time with back pain. Workup showed a pathologic fracture of T11. Subsequently, patient underwent complex surgical repair of her spine at [facility]. During her workup, she was found with a large mediastinal mass, which was proven to be small cell lung cancer. At that time, she was referred to the oncologist, Dr. Li, and there are multiple informative notes from Oncology. In particular, patient has been receiving chemotherapy and radiation is planned as well. 3. Degenerative disk disease of the spine. OUTPATIENT MEDICATIONS Most recently, the patient had been on steroid course and different antibiotic courses. Exact medication list is not yet updated or available. In the past she also took: 1. Simvastatin. 2. Oxycodone 3. Gabapentin. 4. Omeprazole. SOCIAL HISTORY: Patient used to be a heavy smoker. She has been trying to quit , and nowadays she smokes about 5 cigarettes per day. FAMILY HISTORY: Positive for lung cancer in an aunt and prostate cancer in the father. REVIEW OF SYSTEMS: Please see pertinent positives listed above in History of Present Illness. On further review, patient mentioned that she has night sweats. She denied fevers. She reported about 5-6 pounds weight loss during the past week. Prior to that, last year she lost about 5 pounds. She reports that her normal weight is around the low 90s, high 80s. Last week she was 82 pounds, and today she was 78. On complete 12-point review, other than the symptoms listed at History of Present Illness, there was no additional complaint. PHYSICAL EXAM VITAL SIGNS: Please see listed above in History of Present Illness. GENERAL: Patient is well-developed, frail, thin, chronically and acutely ill appearing female who was in moderate respiratory distress. She could speak in full sentences, although she was breathing fast. RESPIRATORY: Increased expiratory/inspiratory ratio. On supplemental oxygen, could speak in full sentences. There were bilateral wheezes above all lung patricio, not much crackling. CVS: S1, S2 regular, tachycardia. I could not hear murmur, rub, or gallop in the setting of transmitted airway sounds. ABDOMEN: Soft, benign. Nontender. Bowel tones present. LYMPHATIC: No lymphedema. MUSCULOSKELETAL: Thin, frail, decreased muscle mass. Large AP diameter of the chest consistent with COPD-like physiology. NEUROLOGIC: Alert, oriented, nonfocal. PSYCHIATRIC: Cooperative. HEENT: Oral mucosa dry. No thrush, no ulcers. SKIN: No jaundice. ASSESSMENT/ACTIVE ISSUES/DIAGNOSES 1. Acute hypoxic respiratory failure. Based on vital signs criteria and source being bronchitis, patient does rule in for the diagnosis of sepsis. She might also have pneumonia; in the setting of dehydration an infiltrate might not have shown up yet. It is also notable that the patient has risk for bacteremia. She does have a left-sided chest port. She receives chemotherapy, she is immunocompromised, therefore, she could be septic from bacteremia as well. 2. Chronic obstructive pulmonary disease/with exacerbation. 3. Cigarette smoking. PLAN AND ORDERS 1. Patient is getting admitted as inpatient. We will send sputum cultures, influenza screen, MRSA screen. Blood cultures were already sent from the ER. Patient is immunocompromised, therefore, we will continue treating her with Zosyn. If MRSA screen is positive, I will add vancomycin. She will continue treatment for chronic obstructive pulmonary disease exacerbation with intravenous steroids, bronchodilators, proton pump inhibitor, inhaled steroids and supportive care. 2. We will not use probiotic given her immunocompromised status. 3. Deep venous thrombosis prophylaxis with decreased dose of subcutaneous heparin given severe malnutrition. 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 5. Smoking cessation was discussed. 6. Level of care/goals of care/Code Status: I had detailed discussion with the patient, as her POLST form seemed contradictory to the wishes she verbalized. CURRENT CODE STATUS IS DO NOT RESUSCITATE/DO NOT INTUBATE. Patient does accept reasonable interventions, and that is listed on her POLST form. She understands her current workup, diagnosis, and treatment plan. ATTESTATION: I certify that the reasonable expectation for this patient is to remain hospitalized for more than 48 hours; however, to get discharged or transferred to another facility within 96 hours. Time spent in the care of this patient was 60 minutes, level 3 admission. TD: 05/22/2017 16:50 VALERIE
[2017-05-22] MEDS: HYDROcod/ACETAM 10 MG/325 MG TABLET PO PRN (17:12)
[2017-05-22] MEDS: PANTOPRAZOLE 40 MG TABLET PO SCH (17:12)
[2017-05-22] MEDS: methylPREDNISolone SUCCINATE 40 MG/ML VIAL IVP SCH ×2 (17:12→21:07)
[2017-05-22] MEDS: SODIUM CHLORIDE FLUSH 0.9% 10 ML SYRINGE IVP SCH ×2 (17:14→23:48)
[2017-05-22] MEDS: PIPERACILLIN/TAZOBACTAM 3.375 GM in SODIUM CHLORIDE 0.9% MINIBAG 100 ML IV SCH ×2 (17:15→23:49)
[2017-05-22] MEDS ORDERED: POTASSIUM CHLORIDE 20 MEQ TABLET PO ONE (17:37)
[2017-05-22] MEDS: guaiFENesin 600 MG TABLET PO SCH (18:27)
[2017-05-22] MEDS: MORPHINE 2 MG/ML SYRINGE IVP PRN ×2 (18:30→23:48)
[2017-05-22] MEDS: LEVALBUTEROL 1.25 MG/3 ML NEB INH PRN (19:40)
[2017-05-22] MEDS: BUDESONIDE 0.5 MG/2 ML NEB INH SCH (19:40)
[2017-05-22] MEDS ORDERED: FAMOTIDINE 20 MG/50 ML 50 ML IV SCH (21:00)
[2017-05-22] MEDS: HEPARIN 5,000 UNIT/ML VIAL SUBQ SCH (21:07)
[2017-05-22 22:52] LABS: BILIRUBIN,URINE NEGATIVE (NEGATIVE); GLUCOSE, URINE (UA) NEGATIVE (NEGATIVE); KETONES,URINE (UA) NEGATIVE (NEGATIVE); LEUKOCYTE ESTERASE, URINE NEGATIVE (NEGATIVE); NITRITE,URINE NEGATIVE (NEGATIVE); OCCULT BLOOD,URINE TRACE-LYSE (NEGATIVE); PROTEIN,URINE 30 mg/dL (NEGATIVE); UROBILINOGEN,URINE 0.2 (NORMAL) E.U./dL (NORMAL)
[2017-05-22 22:54] LABS: CLARITY,URINE CLEAR (CLEAR)
[2017-05-22 23:01] LABS: BACTERIA,URINE Few /HPF (None Seen); RBC,URINE 0-5 /HPF (0-5); SQUAMOUS EPITHELIAL CELL,UR MANY Squamous (<= Few)
[2017-05-23] MEDS: LEVALBUTEROL 1.25 MG/3 ML NEB INH PRN ×5 (00:28→19:07)
[2017-05-23] MEDS: SODIUM CHLORIDE FLUSH 0.9% 10 ML SYRINGE IVP PRN ×3 (05:52→21:53)
[2017-05-23] MEDS: PIPERACILLIN/TAZOBACTAM 3.375 GM in SODIUM CHLORIDE 0.9% MINIBAG 100 ML IV SCH ×3 (05:52→18:15)
[2017-05-23] MEDS: methylPREDNISolone SUCCINATE 40 MG/ML VIAL IVP SCH ×3 (05:53→21:56)
[2017-05-23] MEDS: PANTOPRAZOLE 40 MG TABLET PO SCH (05:53)
[2017-05-23 06:09] LABS: BASOPHILS % (AUTO) 0.1 %; HGB - HEMOGLOBIN 9.3 g/dL (12.0-16.0); LYMPHOCYTES # (AUTO) 2.2 10^3/uL (1.5-3.5); LYMPHOCYTES % (AUTO) 24.9 %; MEAN CORPUSCULAR HEMOGLOBIN 33.8 pg (27.0-31.0); MEAN CORPUSCULAR HGB CONC 32.7 g/dL (32.0-36.0); MEAN CORPUSCULAR VOLUME 103.4 fL (81.0-99.0); MEAN PLATELET VOLUME 7.8 fL (7.9-10.8); MONOCYTES # (AUTO) 0.5 10^3/uL (0.0-1.0); MONOCYTES % (AUTO) 5.4 %; NEUTROPHILS # (AUTO) 6.3 10^3/uL (1.5-6.6); NEUTROPHILS % (AUTO) 69.6 %; PLT - PLATELET COUNT 243 10^3/uL (130-450); RED BLOOD COUNT 2.76 10^6/uL (4.20-5.40); RED CELL DISTRIBUTION WIDTH 15.5 % (12.0-15.0)
[2017-05-23 06:16] LABS: CALCIUM 9.2 mg/dL (8.5-10.3); CREATININE 0.8 mg/dL (0.4-1.0)
[2017-05-23] MEDS: BUDESONIDE 0.5 MG/2 ML NEB INH SCH ×2 (07:45→19:07)
[2017-05-23] MEDS: HEPARIN 5,000 UNIT/ML VIAL SUBQ SCH ×2 (09:05→20:41)
[2017-05-23] MEDS: HYDROcod/ACETAM 10 MG/325 MG TABLET PO PRN ×3 (09:08→20:42)
[2017-05-23] MEDS: guaiFENesin 600 MG TABLET PO SCH ×2 (09:09→20:42)
[2017-05-23] MEDS: SODIUM CHLORIDE FLUSH 0.9% 10 ML SYRINGE IVP SCH ×2 (09:09→18:19)
[2017-05-23] MEDS: POLYETHYLENE GLYCOL 3350 17 GM PACKET PO SCH (09:12)
--- NOTE | 2017-05-23 14:10 | PROVIDER PROGRESS NOTE ---
Subjective - Prog Note Date Prog Note Date: 05/23/17 - Subjective Pt reports feeling: Improved (Feels better, but still SOB and weak, not able to do much activity due to SOB. Would not consider PT/OT, rehab or home health.) Objective - Vital Signs/Intake & Output Vital Signs: Vital Signs x48h Temp Pulse Pulse Resp BP Pulse Ox 05/23/17 12:19 36.5 C 108 H 20 144/88 H 92 05/23/17 11:31 90 20 05/23/17 07:48 100 18 05/23/17 07:14 36.5 C 78 16 130/88 H 96 Intake & Output: Intake & Output 05/20/17 05/21/17 05/22/17 05/23/17 23:59 23:59 23:59 23:59 Intake Total 2400 1020 Output Total 200 800 Balance 2200 220 - Objective General Appearance: positive: Mild distress (Dyspneic, increased work of breathing.) Eyes Bilateral: positive: Normal inspection Respiratory: positive: Rales, Rhonchi Extremities: positive: No pedal edema Comments/Other: Thin, frail, cachectic. - Lab Results Fish Bones: 05/23/17 05:50 05/23/17 05:50 Other Labs: Lab Results x24hrs 05/23/17 05/23/17 05/23/17 Range/Units 06:15 05:50 05:50 WBC 9.0 (4.8-10.8) x10^3/uL RBC 2.76 L (4.20-5.40) 10^6/uL Hgb 9.3 L (12.0-16.0) g/dL Hct 28.5 L (37.0-47.0) % MCV 103.4 H (81.0-99.0) fL MCH 33.8 H (27.0-31.0) pg MCHC 32.7 (32.0-36.0) g/dL RDW 15.5 H (12.0-15.0) % Plt Count 243 (130-450) 10^3/uL MPV 7.8 L (7.9-10.8) fL Neut # 6.3 (1.5-6.6) 10^3/uL Lymph # 2.2 (1.5-3.5) 10^3/uL [place] # 0.5 (0.0-1.0) 10^3/uL Eos # 0.0 (0.0-0.7) 10^3/uL Baso # 0.0 (0.0-0.1) 10^3/uL Absolute Nucleated RBC 0.01 x10^3/uL Nucleated RBC % 0.1 /100WBC Sodium 136 (135-145) mmol/L Potassium 4.1 (3.5-5.0) mmol/L Chloride 107 (101-111) mmol/L Carbon Dioxide 20 L (21-32) mmol/L Anion Gap 9.0 (6-13) BUN 29 H (6-20) mg/dL Creatinine 0.8 (0.4-1.0) mg/dL Estimated GFR (MDRD) 72 L (>89) Glucose 127 H (70-100) mg/dL Lactic Acid 1.8 (0.5-2.2) mmol/L Calcium 9.2 (8.5-10.3) mg/dL Urine Color Urine Clarity (CLEAR) Urine pH (5.0-7.5) PH Ur Specific Rose (1.002-1.030) Urine Protein (NEGATIVE) mg/dL Urine Glucose (UA) (NEGATIVE) mg/dL Urine Ketones (NEGATIVE) mg/dL Urine Occult Blood (NEGATIVE) Urine Nitrite (NEGATIVE) Urine Bilirubin (NEGATIVE) Urine Urobilinogen (NORMAL) E.U./dL Ur Leukocyte Esterase (NEGATIVE) Urine RBC (0-5) /HPF Urine WBC (0-5) /HPF Ur Squamous Epith Cells (<= Few) Urine Bacteria (None Seen) /HPF Ur Microscopic Review Urine Culture Comments Influenza A (Rapid) (Negative) Influenza B (Rapid) (Negative) Influenza Types A,B Ag 05/22/17 05/22/17 Range/Units 21:30 18:42 WBC (4.8-10.8) x10^3/uL RBC (4.20-5.40) 10^6/uL Hgb (12.0-16.0) g/dL Hct (37.0-47.0) % MCV (81.0-99.0) fL MCH (27.0-31.0) pg MCHC (32.0-36.0) g/dL RDW (12.0-15.0) % Plt Count (130-450) 10^3/uL MPV (7.9-10.8) fL Neut # (1.5-6.6) 10^3/uL Lymph # (1.5-3.5) 10^3/uL [place] # (0.0-1.0) 10^3/uL Eos # (0.0-0.7) 10^3/uL Baso # (0.0-0.1) 10^3/uL Absolute Nucleated RBC x10^3/uL Nucleated RBC % /100WBC Sodium (135-145) mmol/L Potassium (3.5-5.0) mmol/L Chloride (101-111) mmol/L Carbon Dioxide (21-32) mmol/L Anion Gap (6-13) BUN (6-20) mg/dL Creatinine (0.4-1.0) mg/dL Estimated GFR (MDRD) (>89) Glucose (70-100) mg/dL Lactic Acid (0.5-2.2) mmol/L Calcium (8.5-10.3) mg/dL Urine Color YELLOW Urine Clarity CLEAR (CLEAR) Urine pH 5.0 (5.0-7.5) PH Ur Specific [place] >=1.030 H (1.002-1.030) Urine Protein 30 H (NEGATIVE) mg/dL Urine Glucose (UA) NEGATIVE (NEGATIVE) mg/dL Urine Ketones NEGATIVE (NEGATIVE) mg/dL Urine Occult Blood TRACE-LYSE (NEGATIVE) Urine Nitrite NEGATIVE (NEGATIVE) Urine Bilirubin NEGATIVE (NEGATIVE) Urine Urobilinogen 0.2 (NORMAL) (NORMAL) E.U./dL Ur Leukocyte Esterase NEGATIVE (NEGATIVE) Urine RBC 0-5 (0-5) /HPF Urine WBC 0-3 (0-5) /HPF Ur Squamous Epith Cells MANY Squamous H (<= Few) Urine Bacteria Few (None Seen) /HPF Ur Microscopic Review INDICATED Urine Culture Comments NOT INDICATED Influenza A (Rapid) Negative (Negative) Influenza B (Rapid) Negative (Negative) Influenza Types A,B Ag - Assessment/Plan - Problem List (1) Respiratory failure with hypoxia Impression: Interval history: Remains short of breath, but feels improved. Still weak. Wants to discharge home dylon; does not have insight that her disease is severe. Discussed the ongoing need for oxygen and current treatment on IV steroid and IV Abx. Patient seems to have unrealistic goals regarding her ability to work/ be a caregiver to someone. She is worried less about her own condition/disease. Diagnoses/Assessment: COPD with bronchitis /acute exacerbation PNA on clinical ground Sepsis /per vital sign criteria, source: respiratory Lactic acidosis on admission/ resolved. Cachexia/severe malnutrition Lung cancer/ advanced, stage IV Immunocompromised/ on chemo tx Smoking Plan: Continue current care, expect needing ongoing treatment for 24-48 hrs before discharge can be considered. Home O2 evaluation. Patient does not wish PT/OT eval, does not accept resources which might be offered/available. Time: 30 minutes; case d/w CM, PT, SW Qualifiers: Chronicity: acute Qualified Code(s): J96.01 - Acute respiratory failure with hypoxia
[2017-05-23] MEDS: MORPHINE 2 MG/ML SYRINGE IVP PRN (21:53)
[2017-05-24] MEDS: MORPHINE 2 MG/ML SYRINGE IVP PRN ×2 (00:13→16:00)
[2017-05-24] MEDS: SODIUM CHLORIDE FLUSH 0.9% 10 ML SYRINGE IVP SCH ×3 (00:14→16:01)
[2017-05-24] MEDS: PIPERACILLIN/TAZOBACTAM 3.375 GM in SODIUM CHLORIDE 0.9% MINIBAG 100 ML IV SCH ×4 (00:26→19:05)
[2017-05-24] MEDS: SODIUM CHLORIDE FLUSH 0.9% 10 ML SYRINGE IVP PRN (06:38)
[2017-05-24] MEDS: PANTOPRAZOLE 40 MG TABLET PO SCH (06:38)
[2017-05-24] MEDS: methylPREDNISolone SUCCINATE 40 MG/ML VIAL IVP SCH (06:50)
[2017-05-24] MEDS: BUDESONIDE 0.5 MG/2 ML NEB INH SCH ×2 (08:33→20:27)
[2017-05-24] MEDS: LEVALBUTEROL 1.25 MG/3 ML NEB INH PRN ×3 (08:33→20:27)
[2017-05-24] MEDS: guaiFENesin 600 MG TABLET PO SCH ×2 (08:56→22:00)
[2017-05-24] MEDS: NICOTINE 21 MG PATCH TOP SCH (08:57)
[2017-05-24] MEDS: POLYETHYLENE GLYCOL 3350 17 GM PACKET PO SCH (08:57)
[2017-05-24] MEDS: HEPARIN 5,000 UNIT/ML VIAL SUBQ SCH ×2 (09:01→21:57)
[2017-05-24] MEDS: HYDROcod/ACETAM 10 MG/325 MG TABLET PO PRN ×2 (09:08→13:12)
[2017-05-24] MEDS: predniSONE 20 MG TABLET PO SCH (11:50)
--- NOTE | 2017-05-24 14:04 | PROVIDER PROGRESS NOTE ---
Subjective - Prog Note Date Prog Note Date: 05/24/17 - Subjective Pt reports feeling: Improved (Still feels weak, but less short of breath.) Objective - Vital Signs/Intake & Output Vital Signs: Vital Signs x48h Temp Pulse Pulse Resp BP Pulse Ox 05/24/17 13:26 91 14 05/24/17 08:33 82 14 05/24/17 07:48 36.8 C 68 20 130/81 H 94 Intake & Output: Intake & Output 05/21/17 05/22/17 05/23/17 05/24/17 23:59 23:59 23:59 23:59 Intake Total 2400 1700 780 Output Total 200 1275 1050 Balance 2200 425 -270 - Objective General Appearance: positive: Mild distress (Increased work of breathing, but improved from previous day.) Eyes Bilateral: positive: Normal inspection ENT: positive: Other (Right ear without discharge, tenderness.) Respiratory: positive: Wheezes, Rhonchi Abdomen: positive: Non-tender Neurologic/Psychiatric: positive: Oriented x3 - Lab Results Fish Bones: 05/23/17 05:50 05/23/17 05:50 Assessment/Plan - Problem List (1) Respiratory failure with hypoxia Impression: Impression: Interval history: Remains short of breath, but feels improved. Still weak. Discussed the need for home oxygen, patient is agreeable. Patient is asking me to examine her ear; had ear infection last week. There is no pre-auricular tenderness, no discharge, no ear pain. Diagnoses/Assessment: COPD with bronchitis /acute exacerbation PNA on clinical ground Sepsis /per vital sign criteria, source: respiratory Lactic acidosis on admission/ resolved. Cachexia/severe malnutrition Lung cancer/ advanced, stage IV Immunocompromised/ on chemo tx Smoking Plan: Home O2 evaluation. D/c IV steroid, switched to oral Prednisone. If tolerated, patient might discharge within 24 hrs. I examined the ear. Explained that if there was an ear infection it was likely treated on Zosyn already. Continue bronchodilators. Nicotine patch, encouraged smoking cessation. Patient does not wish PT/OT eval, does not accept resources which might be offered/available. Time: 30 minutes; case d/w CM, PT, SW Qualifiers: Chronicity: acute Qualified Code(s): J96.01 - Acute respiratory failure with hypoxia
[2017-05-24] MEDS ORDERED: SODIUM CHLORIDE 0.9% 500 ML IV PRN (18:46)
[2017-05-25] MEDS: MORPHINE 2 MG/ML SYRINGE IVP PRN ×2 (00:37→06:17)
[2017-05-25] MEDS: PIPERACILLIN/TAZOBACTAM 3.375 GM in SODIUM CHLORIDE 0.9% MINIBAG 100 ML IV SCH ×2 (00:37→06:19)
[2017-05-25] MEDS: SODIUM CHLORIDE FLUSH 0.9% 10 ML SYRINGE IVP SCH ×2 (00:43→08:59)
[2017-05-25 06:15] LABS: BASOPHILS % (AUTO) 0.1 %; HGB - HEMOGLOBIN 9.6 g/dL (12.0-16.0); LYMPHOCYTES # (AUTO) 3.5 10^3/uL (1.5-3.5); LYMPHOCYTES % (AUTO) 26.1 %; MEAN CORPUSCULAR HEMOGLOBIN 33.5 pg (27.0-31.0); MEAN CORPUSCULAR HGB CONC 32.9 g/dL (32.0-36.0); MEAN PLATELET VOLUME 7.9 fL (7.9-10.8); MONOCYTES # (AUTO) 1.3 10^3/uL (0.0-1.0); MONOCYTES % (AUTO) 9.7 %; NEUTROPHILS # (AUTO) 8.6 10^3/uL (1.5-6.6); NEUTROPHILS % (AUTO) 64.1 %; PLT - PLATELET COUNT 311 10^3/uL (130-450); RED BLOOD COUNT 2.87 10^6/uL (4.20-5.40); WHITE BLOOD COUNT 13.3 x10^3/uL (4.8-10.8)
[2017-05-25] MEDS: PANTOPRAZOLE 40 MG TABLET PO SCH (06:17)
[2017-05-25 06:24] LABS: CALCIUM 9.1 mg/dL (8.5-10.3); CREATININE 0.8 mg/dL (0.4-1.0)
[2017-05-25] MEDS: LEVALBUTEROL 1.25 MG/3 ML NEB INH PRN (07:36)
[2017-05-25] MEDS: BUDESONIDE 0.5 MG/2 ML NEB INH SCH (07:36)
[2017-05-25] MEDS ORDERED: POTASSIUM CHLOR 10 MEQ/100 ML 10 MEQ/100 ML BAG IV ONE (08:00)
[2017-05-25] MEDS ORDERED: POTASSIUM CHLORIDE 20 MEQ TABLET PO ONE (08:00)
[2017-05-25] MEDS: guaiFENesin 600 MG TABLET PO SCH (08:43)
[2017-05-25] MEDS: HYDROcod/ACETAM 10 MG/325 MG TABLET PO PRN (08:43)
[2017-05-25] MEDS: predniSONE 20 MG TABLET PO SCH (08:43)
[2017-05-25] MEDS: NICOTINE 21 MG PATCH TOP SCH (08:43)
[2017-05-25] MEDS: POLYETHYLENE GLYCOL 3350 17 GM PACKET PO SCH (08:47)
[2017-05-25] MEDS: HEPARIN 5,000 UNIT/ML VIAL SUBQ SCH (08:47)
[2017-05-25 08:51] VITALS: BP 142/100
--- NOTE | 2017-05-25 10:34 | Discharge Plan ---
Discharge Plan Disposition: 01 Home, Self Care Condition: Stable Prescriptions: Amox/Clav 875/125 [Augmentin] 1 each PO Q12H #6 tablet Budesonide/Formoterol Fumarate [Symbicort 160-4.5 Mcg Inhaler] 10.2 gm IH BID # 1 hfa.aer.ad guaiFENesin [Mucinex] 600 mg PO BID #10 tablet Levalbuterol [Xopenex] 1.25 mg INH Q4H PRN #60 neb PRN Reason: Shortness Of Air/Wheezing Nicotine 21 mg Patch [Nicoderm] 1 patch TOP DAILY #20 patch Omeprazole 40 mg PO DAILY #30 capsule. oxyCODONE [Roxicodone] 5 - 10 mg PO Q4H PRN #16 tablet PRN Reason: Pain predniSONE [Prednisone] 10 mg PO DAILY #60 tablet Diet: Regular Activity Restrictions: Activity as Tolerated Assistance Devices: Walker, Cane Additional Instructions or Follow Up instructions: SMOKING CESSATION. DO not smoke and use home oxygen. Oxygen is flammable. Follow up with PCP between May 30-, PCP to give further instructions Re: Prednisone. Discharged on taper: 40 mg Po daily for 3 days, then 30 mg PO daily for 3 days and then stay on 20 mg PO daily. PCP to further taper or continue. Follow-Up Care: Dietitian No Smoking: If you smoke, Please STOP! Call for help.
--- NOTE | 2017-05-26 05:44 | DISCHARGE SUMMARY ---
Physician: Carlee Wakefield MD DATE OF ADMISSION: 05/22/2017 DATE OF DISCHARGE: 05/25/2017 CHIEF COMPLAINT: Respiratory distress. DISCHARGE DIAGNOSES 1. Hypoxic respiratory failure requiring supplemental oxygen, qualified for and discharged on home oxygen. 2. Systemic inflammatory response/sepsis, ruled in for this diagnosis per vital sign criteria, source of sepsis being respiratory and having lactic acidosis. 3. Chronic obstructive pulmonary disease with exacerbation/acute bronchitis. 4. History of lung cancer, status post chemotherapy planned to have radiation therapy to chest and brain, followed by Oncology. 5. Cigarette smoking, not yet ready to quit. 6. Abnormal electrolytes/hypokalemia. 7. Chronic anemia, no bleeding complication. 8. Code status is DO NOT RESUSCITATE/DO NOT INTUBATE, POLST form was filled out during this admission. DISCHARGE RECOMMENDATIONS 1. Smoking cessation. 2. The patient was discharged recommending to use home oxygen. Notably to qualify for home oxygen, the patient was hypoxic at rest with room air oxygen saturation of 88%. At rest with oxygen at 2 liters nasal cannula, her oxygen saturation improved to 92%. With exertion on 2 liters per minute, her sats were 92% at 200 feet and 100 feet. I am ordering home oxygen at 2 liters per minute via nasal cannula continuously. 3. The patient is discharged recommending to use home nebulizer. Home nebulizer is ordered for administration of bronchodilators to help treat respiratory failure. 4. The patient was made aware that oxygen is flammable and she was recommended not to smoke and use home oxygen at the same time. 5. Dietitian followup recommended due to cachexia/protein calorie malnutrition. 6. Follow up with the primary care physician, Dr. Oreilly. Recommended to follow up between 05/30/2017 and 06/03/2017. Notably, the patient is discharged on prednisone taper. She is recommended to continue prednisone at 20 mg p.o. daily and further taper will be deferred to the primary care setting. DISCHARGE MEDICATIONS 1. Augmentin 875/125 one tablet p.o. q.12 hours recommended for 3 additional days following discharge to complete altogether 7 day antibiotic course. 2. Symbicort 160/4.5 mcg inhaler twice daily. 3. Mucinex 600 mg p.o. twice daily recommended for 5 additional days following discharge. 4. Xopenex small volume nebulizer 1.25 mg inhaler q.4 hours p.r.n. for wheezing and shortness of breath. 5. Nicotine patch 21 mg patch topical daily. 6. Omeprazole 40 mg p.o. daily. 7. Oxycodone 5-10 mg p.o. q.4 hours p.r.n. for pain, 16 tablets dispensed. 8. Prednisone taper as follows: 40 mg p.o. daily for 3 days, then 30 mg p.o. daily for 3 days, continue with 20 mg p.o. daily and further taper will be deferred to the primary care setting. DISCHARGE CONDITION: Temperature 36.7, heart rate 90, blood pressure 140/100, respiratory rate 18, oxygen saturation 95% on 2 liters nasal cannula. The patient was alert, oriented, neurologically nonfocal. She verbalized understanding of discharge plan and followup. Respiratory: Rhonchi and increased expiratory and inspiratory ratio. Wheezing much improved from admission. Patient stating that this respiratory status with wheezes is near her baseline. BRIEF PRESENTATION AND HOSPITAL COURSE: The patient is a 66-year-old female with past medical history of cigarette smoking, history of COPD; however, no history of oxygen dependence. She was admitted to [facility] on 05/22/2017 with shortness of breath and hypoxia. Initially, her oxygen saturation was anywhere between 70 and 80 on room air. Her vital signs suggested septic physiology. She had clinical symptoms of cough, shortness of breath and abnormal physical exam of her lungs indicating respiratory infection. Her chest x-ray, however, did not show an infiltrate. She did have elevated lactic acid and based on elevated lactic acid, vital sign abnormality and clinical symptoms, and also physical exam of the lung, she did rule in for respiratory infection, likely had COPD exacerbation with acute bronchitis. Therefore, she was started on IV antibiotic, she received Zosyn. Regarding chronic obstructive pulmonary disease exacerbation, she was treated with IV steroids, bronchodilators, proton pump inhibitor and supportive care. She showed steady improvement and on the third hospital day, she was able to discharge in improving condition. It is notable that this patient is chronically ill, she has stage IV/advanced lung cancer, which was recently treated on chemotherapy. She still awaits chest radiation and is scheduled for prophylactic brain radiation as well. She follows up with Oncology. Although she did not use oxygen in the past, it seems that her overall lung function has been declining due to COPD and lung cancer as well. I expect that she might continue with decline, especially as she will receive radiation and might have a challenging future course. In any case, she qualified for home oxygen and she was discharged recommending to use oxygen continuously. She also was given nebulizer machine and she is finishing prednisone taper at home. Given her significant underlying lung condition, she will require close outpatient followup and she is recommended to see her primary care physician in about a week following discharge. Overall, the patient was steadily improving. She was discharged with the above recommendations, continuing close outpatient followup. Time I spent with this discharge was more than 30 minutes. TD: 05/26/2017 05:43 VALERIE
== END 2017-05-25 11:30 | disposition home or self-care (01) | DRG 871 ==
LOC: ED 12:11 → MS2 15:31
PROVIDERS: ADMIT Internal Medicine; ATTEND Internal Medicine
DX: J43.9 Emphysema, unspecified (principal); R09.02 Hypoxemia; A41.9 Sepsis, unspecified organism; J18.9 Pneumonia, unspecified organism; J96.01 Acute respiratory failure with hypoxia; C79.9 Secondary malignant neoplasm of unspecified site; F17.200 Nicotine dependence, unspecified, uncomplicated; E78.00 Pure hypercholesterolemia, unspecified; J44.0 Chronic obstructive pulmonary disease with (acute) lower respiratory infection; J44.1 Chronic obstructive pulmonary disease with (acute) exacerbation; E46 Unspecified protein-calorie malnutrition; Z68.1 Body mass index [BMI] 19.9 or less, adult; C34.90 Malignant neoplasm of unspecified part of unspecified bronchus or lung; C79.31 Secondary malignant neoplasm of brain; C79.89 Secondary malignant neoplasm of other specified sites; J20.9 Acute bronchitis, unspecified; F17.210 Nicotine dependence, cigarettes, uncomplicated; E87.6 Hypokalemia; D64.89 Other specified anemias; K21.9 Gastro-esophageal reflux disease without esophagitis; M47.9 Spondylosis, unspecified; Z66 Do not resuscitate; Z99.81 Dependence on supplemental oxygen; Z79.52 Long term (current) use of systemic steroids; Z79.891 Long term (current) use of opiate analgesic; Z79.51 Long term (current) use of inhaled steroids; Z79.899 Other long term (current) drug therapy
CPT/HCPCS: 36415; 71045; 80048; 80053; 81001; 81003; 83605; 83690; 85025; 87040; 87086; 87275; 87276; 87640; 93005; 94640; 94761; 96365; 99284

== ENCOUNTER 2017-07-11 15:48 | Outpatient (CLI) | payer MEDICARE, MEDICAID ==
[2017-07-11 16:23] LABS: ALBUMIN 3.6 g/dL (3.2-5.5); ALBUMIN/GLOBULIN RATIO 0.8 (1.0-2.2); BILIRUBIN,TOTAL 0.4 mg/dL (0.2-1.0); CALCIUM 9.1 mg/dL (8.5-10.3); TOTAL PROTEIN 7.9 g/dL (6.7-8.2)
[2017-07-11] MEDS ORDERED: IOPAMIDOL-300 100 ML VIAL IVP ONE (17:27)
--- NOTE | 2017-07-11 18:21 | CT Report ---
EXAM: CT HEAD EXAM DATE: 07/11/2017 05:23 PM. CLINICAL HISTORY: Headache. Finished radiation therapy for lung cancer COMPARISON: MRI brain 04/03/2017. TECHNIQUE: Multiaxial CT images were obtained from the foramen magnum to the vertex following the adm inistration of 80 cc Isovue [address] protocol optimization, one or more of the following dose reduction techniques w ere utilized for this exam: automated exposure control, adjustment of mA and/or KV based on patient s ize, or use of iterative reconstructive technique. FINDINGS: No enhancing mass is identified in the brain parenchyma. No extra-axial fluid collection is seen. Gra y-white matter differentiation is preserved No suspicious lytic or blastic region is present in the calvarium. IMPRESSION: 1. No intracranial metastatic disease. 2. No calvarial metastasis is identified [facility] Referring Provider Line: [phone] SITE ID: [id number]
== END 2017-07-11 15:49 | disposition home or self-care (01) ==
LOC: LAB 15:48
PROVIDERS: ATTEND Specialist
DX: R51 Headache (principal)
CPT/HCPCS: 36415; 70460; 80053; Q9967

== ENCOUNTER 2017-09-29 10:35 | Inpatient (IN) | payer MEDICARE ==
[2017-09-29] MEDS ORDERED: SODIUM CHLORIDE 0.9% 1,000 ML IV ONE (11:22)
[2017-09-29] MEDS ORDERED: ONDANSETRON 4 MG/2 ML VIAL IVP STA ×2 (12:05→13:49)
[2017-09-29] MEDS ORDERED: HYDROmorphone 1 MG/ML CARPUJECT IVP STA ×2 (12:05→13:49)
--- NOTE | 2017-09-29 12:08 | ED Physician Documentation ---
History of Present Illness - Stated complaint Stated Complaint: VOMITING/UNABLE TO EAT OR DRINK - Chief complaint Chief Complaint: General - History obtained from History obtained from: Patient - History of Present Illness Timing: How many days ago (2) - Additonal information Additional information: 66 year old female being treated for non-small cell lung cancer that has metastasized and has failed first-line chemotherapy has had 5 days of chemotherapy last week and she tolerated the first 3 days well and then by Saturday evening she felt quite ill. She has been vomiting she has not been able to hold down her pain medications and she has not been able to hold down any food or fluids. She has terminal disease and a DNR order. She will need palliative care. She has completed a course of radiation therapy as well. Review of Systems Constitutional: denies: Fever Eyes: denies: Decreased vision Ears: denies: Ear pain Nose: denies: Congestion Throat: denies: Sore throat Cardiac: denies: Chest pain / pressure, Palpitations, Pedal edema, Calf pain Respiratory: reports: Dyspnea. denies: Cough GI: reports: Nausea, Vomiting. denies: Abdominal Pain, Diarrhea Skin: denies: Rash Musculoskeletal: reports: Back pain. denies: Neck pain PD PAST MEDICAL HISTORY - Past Medical History Cardiovascular: High cholesterol, Murmur Respiratory: COPD, Emphysema, Shortness of breath Endocrine/Autoimmune: None GI: GERD, Ulcers : None HEENT: Other Psych: None Musculoskeletal: Rheumatoid arthritis, Chronic back pain Derm: None Other Past Medical History: Lung cancer mets to liver - Past Surgical History Past Surgical History: Yes General: Appendectomy, Other Ortho: Spine surgery, Other /LOG DECKMAN: section, 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 HEENT: Tonsil/Adenoidectomy - Present Medications Home Medications: Ambulatory Orders Medication Instructions Recorded Confirmed Simvastatin 20 mg PO DAILY 12/28/16 09/19/17 Albuterol Sulfate [Proventil Hfa 1 - 2 puffs INH Q4H PRN #1 inhaler 05/20/1704/07 Inhaler] Amox/Clav 875/125 [Augmentin] 1 each PO Q12H #6 tablet 05/25/17 09/19/17 Budesonide/Formoterol Fumarate 10.2 gm IH BID #1 hfa.aer.ad 05/25/17 09/19/17 [Symbicort 160-4.5 Mcg Inhaler] Levalbuterol [Xopenex] 1.25 mg INH Q4H PRN #60 neb 05/25/17 09/19/17 Nicotine 21 mg Patch [Nicoderm] 1 patch TOP DAILY #20 patch 05/25/17 09/19/17 Omeprazole 40 mg PO DAILY #30 capsule. 05/25/17 09/19/17 guaiFENesin [Mucinex] 600 mg PO BID #10 tablet 05/25/17 09/19/17 oxyCODONE [Roxicodone] 5 - 10 mg PO Q4H PRN #16 tablet 05/25/17 09/19/17 predniSONE [Prednisone] 10 mg PO DAILY #60 tablet 05/25/17 09/19/17 - Allergies Allergies/Adverse Reactions: Allergies Allergy/AdvReac Type Severity Reaction Status Date / Time Sulfa (Sulfonamide Allergy Severe Edema Verified 09/29/17 10:46 Antibiotics) epinephrine AdvReac palpitation Verified 09/29/17 10:46 s - Social History Does the pt smoke?: Yes Smoking Status: Current every day smoker Does the pt drink ETOH?: No Does the pt have substance abuse?: No - Immunizations Immunizations are current?: Yes - POLST Patient has POLST: No PD ED PE NORMAL - Vitals Vital signs reviewed: Yes (hypertensive) - General General: Alert and oriented X 3, No acute distress, Well developed/nourished, Other (a tiny woman with a broad smile on her face continues to smile while explaining her severe symptoms and poor prognosis. ) - HEENT HEENT: Atraumatic, PERRL, EOMI - Neck Neck: Supple, no meningeal sign - Cardiac Cardiac: RRR, No murmur - Respiratory Respiratory: No respiratory distress, Other (bibasilar rhonchi ) - Abdomen Abdomen: Soft, Other (mild epigastric tenderness) - Back Back: No CVA TTP, Other (The back is tender in general ) - Derm Derm: Normal color, Warm and dry, No rash - Extremities Extremities: No deformity, No edema - Neuro Neuro: Alert and oriented X 3, renewals manager 2-12 intact, No motor deficit, No sensory deficit, Normal speech Eye Opening: Spontaneous Motor: Obeys Commands Verbal: Oriented GCS Score: 15 - Psych Psych: Normal mood, Normal affect Results - Vitals Vitals: Vital Signs - 24 hr 09/29/17 09/29/17 10:40 12:12 Temperature 36.6 C 36.9 C Heart Rate 85 92 Respiratory 20 18 Rate Blood Pressure 132/98 H 154/97 H O2 Saturation 96 95 Oxygen O2 Source Room air - Labs Labs: Laboratory Tests 09/29/17 09/29/17 09/29/17 11:10 11:10 11:10 WBC 4.8 RBC 3.27 L Hgb 10.9 L Hct 31.8 L MCV 97.3 MCH 33.3 H MCHC 34.3 RDW 14.2 Plt Count 269 MPV 8.1 Neut # (Auto) 4.1 Lymph # (Auto) 0.6 L [place] # (Auto) 0.0 Eos # (Auto) 0.1 Baso # (Auto) 0.0 Absolute Nucleated RBC 0.00 Nucleated RBC % 0.1 Sodium 132 L Potassium 3.2 L Chloride 97 L Carbon Dioxide 24 Anion Gap 11.0 BUN 36 H Creatinine 0.7 Estimated GFR (MDRD) 84 L Glucose 90 Calcium 9.1 Total Bilirubin 1.2 H AST 49 H ALT 36 Alkaline Phosphatase 61 Troponin I < 0.04 Total Protein 8.3 H Albumin 3.4 Globulin 4.9 H Albumin/Globulin Ratio 0.7 L Lipase 38 Urine Color Urine Clarity Urine pH Ur Specific [place] Urine Protein Urine Glucose (UA) Urine Ketones Urine Occult Blood Urine Nitrite Urine Bilirubin Urine Urobilinogen Ur Leukocyte Esterase Ur Microscopic Review Urine Culture Comments 09/29/17 12:25 WBC RBC Hgb Hct MCV MCH MCHC RDW Plt Count MPV Neut # (Auto) Lymph # (Auto) [place] # (Auto) Eos # (Auto) Baso # (Auto) Absolute Nucleated RBC Nucleated RBC % Sodium Potassium Chloride Carbon Dioxide Anion Gap BUN Creatinine Estimated GFR (MDRD) Glucose Calcium Total Bilirubin AST ALT Alkaline Phosphatase Troponin I Total Protein Albumin Globulin Albumin/Globulin Ratio Lipase Urine Color YELLOW Urine Clarity CLEAR Urine pH 7.0 Ur Specific [place] 1.015 Urine Protein NEGATIVE Urine Glucose (UA) NEGATIVE Urine Ketones NEGATIVE Urine Occult Blood TRACE-INTA Urine Nitrite NEGATIVE Urine Bilirubin NEGATIVE Urine Urobilinogen 0.2 (NORMAL) Ur Leukocyte Esterase NEGATIVE Ur Microscopic Review NOT INDICATED Urine Culture Comments NOT INDICATED Procedures - IVC sono (time) 1200 Bedside IVC sono: IVC measures (cm) (0.89), IVC collapsed c insp (cm) (complete) , Dehydration (est 2liter deficit and this measurement was made after 600ml is in.) PD MEDICAL DECISION MAKING - ED course Complexity details: reviewed old records, reviewed results, re-evaluated patient , considered differential, d/w patient ED course: 66-year-old female with terminal metastatic non-small cell lung cancer has developed acute nausea and vomiting associated with her recent round of chemotherapy. She is unable to hold her pain medications down and has nonstop vomiting. She is profoundly dehydrated and IV saline is begun. She is given pain medication as well. She will likely need hydration therapy over the next 24 hours. - Sepsis Event Vital Signs: Vital Signs - 24 hr 09/29/17 09/29/17 10:40 12:12 Temperature 36.6 C 36.9 C Heart Rate 85 92 Respiratory 20 18 Rate Blood Pressure 132/98 H 154/97 H O2 Saturation 96 95 Oxygen O2 Source Room air Departure - Departure Disposition: 66 [facility] DC/Xfer Clinical Impression: Dehydration, Vomiting due to chemotherapy, Hypokalemia
[2017-09-29 12:43] LABS: BILIRUBIN,URINE NEGATIVE (NEGATIVE); GLUCOSE, URINE (UA) NEGATIVE (NEGATIVE); KETONES,URINE (UA) NEGATIVE (NEGATIVE); LEUKOCYTE ESTERASE, URINE NEGATIVE (NEGATIVE); NITRITE,URINE NEGATIVE (NEGATIVE); OCCULT BLOOD,URINE TRACE-INTA (NEGATIVE); PROTEIN,URINE NEGATIVE (NEGATIVE); UROBILINOGEN,URINE 0.2 (NORMAL) E.U./dL (NORMAL)
[2017-09-29 12:48] LABS: CLARITY,URINE CLEAR (CLEAR)
[2017-09-29 12:49] LABS: BASOPHILS % (AUTO) 0.1 %; EOSINOPHILS # (AUTO) 0.1 10^3/uL (0.0-0.7); EOSINOPHILS % (AUTO) 1.7 %; HGB - HEMOGLOBIN 10.9 g/dL (12.0-16.0); LYMPHOCYTES # (AUTO) 0.6 10^3/uL (1.5-3.5); LYMPHOCYTES % (AUTO) 11.9 %; MEAN CORPUSCULAR HEMOGLOBIN 33.3 pg (27.0-31.0); MEAN CORPUSCULAR HGB CONC 34.3 g/dL (32.0-36.0); MEAN CORPUSCULAR VOLUME 97.3 fL (81.0-99.0); MEAN PLATELET VOLUME 8.1 fL (7.9-10.8); MONOCYTES % (AUTO) 0.5 %; NEUTROPHILS # (AUTO) 4.1 10^3/uL (1.5-6.6); NEUTROPHILS % (AUTO) 85.8 %; PLT - PLATELET COUNT 269 10^3/uL (130-450); RED BLOOD COUNT 3.27 10^6/uL (4.20-5.40); RED CELL DISTRIBUTION WIDTH 14.2 % (12.0-15.0); WHITE BLOOD COUNT 4.8 x10^3/uL (4.8-10.8)
[2017-09-29 13:01] LABS: ALBUMIN 3.4 g/dL (3.2-5.5); ALBUMIN/GLOBULIN RATIO 0.7 (1.0-2.2); BILIRUBIN,TOTAL 1.2 mg/dL (0.2-1.0); CALCIUM 9.1 mg/dL (8.5-10.3); CREATININE 0.7 mg/dL (0.4-1.0); TOTAL PROTEIN 8.3 g/dL (6.7-8.2)
--- NOTE | 2017-09-29 13:39 | XRAY Report ---
Procedure Date: 09/29/2017 Accession Number: [id number] / [id number] Procedure: XR - Chest 2 View X-Ray CPT Code: 86288 FULL RESULT: EXAM: CHEST RADIOGRAPHY EXAM DATE: 09/29/2017 01:03 PM. CLINICAL HISTORY: Bibasilar rhonchi. COMPARISON: None. TECHNIQUE: 2 views. FINDINGS: Lungs/Pleura: Diffuse coarsened interstitial markings at the bilateral lungs, stable. Opacification of the right costophrenic angle. Mediastinum: Stable cardiac silhouette. Other: Left chest port terminates in the SVC. House rods in the lower thoracic spine. IMPRESSION: Trace right pleural effusion with atelectasis. [facility]
[2017-09-29] MEDS ORDERED: POTASSIUM BICARB 25 MEQ TABLET PO STA (13:47)
[2017-09-29] MEDS ORDERED: PROMETHAZINE 25 MG/1 ML VIAL IM PRN (14:10)
[2017-09-29] MEDS ORDERED: ACETAMINOPHEN 325 MG TABLET PO PRN (14:10)
[2017-09-29] MEDS ORDERED: ZOLPIDEM 5 MG TABLET PO PRN (14:10)
[2017-09-29] MEDS ORDERED: HYDROmorphone 1 MG/ML CARPUJECT IVP PRN (14:10)
[2017-09-29] MEDS ORDERED: IPRATROPIUM/ALBUTEROL 3 ML NEB INH PRN (14:10)
--- NOTE | 2017-09-29 14:19 | HISTORY & PHYSICAL EXAMINATION ---
Chief Complaint - Chief Complaint Chief Complaint: Nausea and vomiting History of Present Illness - Admitted From Admitted From:: Emergency Department - History Obtained From Records Reviewed: Yes History obtained from: Patient and medical records Exam Limitations: None - History of Present Illness HPI Comment/Other: Patient is a 66-year-old female with an unfortunate past medical history significant for metastatic small cell lung cancer with history of T11 vertebral body burst fracture, requiring corpectomy at [facility], treated with 6 cycles of carboplatin and etoposide from November 2016 until April 06, 2017, status post prophylactic whole brain radiation and chest radiation in June 2017, with history of chronic back pain and hyperlipidemia who presented to the emergency department with a chief complaint of intractable nausea and vomiting. The patient was found to have interval progression of her lung cancer in the lateral left lower lobe and posterior left lower lobe after her initial treatment. The patient's oncologist explained to her that she has a poor prognosis with such short remission. She was told that her cancer is not curable. And that the response to second line and third line chemotherapy is usually lower. The patient however decided that she wanted to go on with second line treatment. The patient was started on topotecan for 5 days a week every 21 days starting on 09/23/2017. The patient states that she tolerated the first 2 days pretty well but on the third day began feeling ill. She states that she began having nausea that was persisting through until her fifth day of treatment which was 09/27/2017. She states that since she completed her fifth day of treatment she has been unable to keep anything down. She states that she has had persistent nausea and vomiting. She states that even when she drinks water she becomes nauseated and vomits. She states that due to the fact that she cannot keep her meds down this is also caused her back pain to be uncontrolled. She states that she usually uses oxycodone to treat her back pain however she has been unable to keep the oxycodone down and with the active vomiting the back pain is exacerbated. She states due to this she now has severe pain and still cannot control her nausea and vomiting despite trying multiple medications at home. She states finally today she decided she needed to come into the emergency department after several days of trying to treat herself at home. The patient otherwise does admit to some chronic shortness of breath with exertion. She states that this is been present ever since she was found to have the lung cancer. As mentioned before the patient also has chronic back pain which is been worsened recently due to her inability to keep down her pain medication. The patient states that this back pain started after her corpectomy done at [facility] in November 2016. The patient states that she tolerated her first round of chemotherapy quite well and this is the sickest that she is ever felt. The patient states that she does continue to smoke about 4-5 cigarettes a day but has cut down significantly. She states that she does use a nicotine patch. The patient also admits to decreased appetite, weight loss and hair loss. The patient otherwise denies any headaches, blurred vision, runny nose, sore throat, nasal congestion, difficulty swallowing, chest pain, cough, fevers, chills, orthopnea, PND, increased lower extremity swelling, abdominal pain, diarrhea, constipation, urinary urgency, urinary frequency, dysuria, joint pain , muscle aches, neck stiffness, skin rash, polyuria, polydipsia or any focal neurologic deficits. On presentation to the emergency department the patient was afebrile and vital signs were within normal limits. The patient did appear to be cachectic and she was in significant distress due to her nausea. The patient also appeared to be quite dehydrated. The patient was initially treated with 1 L of IV fluid , several doses of Zofran and IV Dilaudid. It appeared that the patient initially had some response to treatment but is soon is she tried to get up to get her chest x-ray the patient became nauseated and vomited again. She continued to have nausea with any kind of movement. The patient's lab work revealed a hyponatremia with a sodium of 132, hypokalemia with a potassium of 3.2, hypochloremia with a chloride of 97 and an elevated BUN of 36. The patient did not have any leukocytosis and her UA was negative. Given the patient's intractable nausea vomiting and pain as well as her dehydration the patient was placed in observation for supportive care. History - Past Medical History Cardiovascular: reports: High cholesterol, Murmur Respiratory: reports: COPD, Emphysema, Shortness of breath Endocrine/Autoimmune: reports: None GI: reports: GERD, Ulcers : reports: None HEENT: reports: Other Psych: reports: None Musculoskeletal: reports: Rheumatoid arthritis, Chronic back pain Derm: reports: None MRSA Hx?: No Other Past Medical History: Metastatic small cell lung cancer status post 6 cycles of carboplatin and etoposide until April 06, 2017, history of T11 vertebral body burst fracture, requiring colpectomy at [facility], status post prophylactic whole brain radiation and chest radiation in June 2017 with progression of cancer. Now on second line treatment with topotecan for 5 days every 21 days. 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 This is a correction facility. She lives alone. She does have one daughter from whom she is estranged. She moved would be [place] 6 years ago. Prior to that she lived in [place]. 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 She states that she does have some social support and has a very good friend who lives near her. She states that she continues to smoke 3-5 cigarettes a day. Prior to that she smoked a pack and a half a day for 50 years. She denies any alcohol or illicit drug use. - POLST Patient has POLST: Yes POLST Status: DNR Meds/Allgy - Home Medications Home Medications: Ambulatory Orders Medication Instructions Recorded Confirmed Omeprazole 40 mg PO DAILY #30 capsule. 05/25/17 09/29/17 oxyCODONE [Roxicodone] 5 - 10 mg PO Q4H PRN #16 tablet 05/25/17 09/29/17 Albuterol 0.63 mg INH Q4H PRN 09/29/17 09/29/17 Albuterol Sulf [Ventolin Hfa 1 - 2 puffs INH Q4HR PRN 09/29/17 09/29/17 Inhaler] Gabapentin [Gabapentin] 300 mg PO QPM 18 09/29/17 Hydrocodone/Acetaminophen 1 each PO QPM PRN 09/29/17 09/29/17 [Hydrocodone-Acetamin 5-325 mg] Ondansetron HCl [Zofran] 8 mg TL BID 09/29/17 09/29/17 Prochlorperazine [Compazine] 10 mg PO Q6H PRN 09/29/17 09/29/17 tiZANidine [Zanaflex] 4 mg PO Q8H PRN 09/29/17 09/29/17 - Allergies Allergies/Adverse Reactions: Allergies Allergy/AdvReac Type Severity Reaction Status Date / Time Sulfa (Sulfonamide Allergy Severe Edema Verified 09/29/17 10:46 Antibiotics) epinephrine AdvReac palpitation Verified 09/29/17 10:46 s Review of Systems - Other Findings Other Findings: A comprehensive review of systems was performed the pertinent positives and negatives are stated above in the HPI and the remainder of the review of systems is negative. Exam - Vital Signs Reviewed Vital Signs: Yes Vital Signs: Vital Signs x48h Temp Pulse Resp BP Pulse Ox 09/29/17 12:12 36.9 C 92 18 154/97 H 95 09/29/17 10:40 36.6 C 85 20 132/98 H 96 - Physical Exam General Appearance: positive: No acute distress, Alert, Other (Very cachectic appearing) Eyes Bilateral: positive: Normal inspection, PERRL, EOMI, No lid inflammation, Conjunctivae nml, No scleral icterus ENT: positive: ENT inspection nml, Pharynx nml, Dry mucous membranes Neck: positive: Nml inspection, Thyroid nml, No JVD, Trachea midline. negative : Thyromegaly, Lymphadenopathy (R), Lymphadenopathy (L), Stiff neck, Carotid bruit, Tracheal deviation Respiratory: positive: Chest non-tender, No respiratory distress, Wheezes, Rales , Rhonchi Cardiovascular: positive: Regular rate & rhythm, No murmur, No gallop Peripheral Pulses: positive: 2+ Abdomen: positive: Non-tender, No organomegaly, Nml bowel sounds, No distention. negative: Guarding, Rebound, Hepatomegaly Back: positive: Nml inspection. negative: CVA tenderness (R), CVA tenderness (L ) Skin: positive: Color nml, No rash, Warm, Dry. negative: Cyanosis, Diaphoresis , Pallor Extremities: positive: Non-tender, Full ROM, Nml appearance, No pedal edema Neurologic/Psychiatric: positive: Oriented x3, CN's nml (2-12), Motor nml, Sensation nml, Mood/affect nml Conclusion/Plan - Problem List (1) Intractable nausea and vomiting Conclusion/Plan: The patient presents with intractable nausea and vomiting which is likely secondary to side effects from the chemotherapy. The patient last received chemotherapy just 2 days ago. The patient states he has not been able to keep anything down for the last 3-4 days and has been having intractable nausea and vomiting. Plan: IV antiemetics IV fluids Electrolyte replacement Clear liquid diet advance as tolerated Qualifiers: Vomiting type: unspecified Qualified Code(s): R11.2 - Nausea with vomiting , unspecified (2) Chronic back pain Conclusion/Plan: The patient has chronic back pain since her T11 vertebral body burst fracture which required colpectomy at [facility] in November 2016. The patient uses oxycodone at home along with Tylenol for her pain. She has been unable to keep any of her oral pain medications down the last 3-4 days. She is also had the pain exacerbated by vomiting. The patient presents with intractable pain. Plan: Patient be placed on IV Dilaudid and oral oxycodone as well as oral Tylenol if she is able to tolerate it. We will give her antiemetics and monitor her closely. Qualifiers: Back pain location: thoracic back pain Back pain laterality: midline Qualified Code(s): M54.6 - Pain in thoracic spine; G89.29 - Other chronic pain; G89.29 - Other chronic pain (3) Hypokalemia Conclusion/Plan: On presentation to the emergency department the patient is hypokalemic with a potassium of 3.2. This is secondary to her intractable nausea and vomiting. The patient will be given potassium replacement IV and p.o. if tolerated. We will continue to monitor her potassium. We will give the patient antiemetics to control her vomiting. (4) Dehydration Conclusion/Plan: The patient does appear to be dehydrated on presentation. She has not been able to eat or drink anything for the last 3-4 days and has been having intractable nausea and vomiting. The patient does have hyponatremia, hypochloremia, hypokalemia and has an elevated BUN all of which point towards dehydration. The patient also has dry mucous membranes. The patient will be given IV fluids and we will use antiemetics to suppress her vomiting. (5) Hyponatremia Conclusion/Plan: The patient presents with sodium of 132. Patient appears to have hypovolemic hyponatremia likely secondary to poor oral intake and intractable nausea vomiting. Patient will be given IV fluids and will continue to monitor her sodium while she is hospitalized. (6) Metastatic non-small cell lung cancer Conclusion/Plan: The patient has a history of metastatic small cell lung cancer status post 6 cycles of carboplatin and etoposide until April 06, 2017, history of T11 vertebral body burst fracture, requiring corpectomy at [facility], status post prophylactic whole brain radiation and chest radiation in June 2017 with progression of cancer. Now on second line treatment with topotecan for 5 days every 21 days. She just completed her last dose of chemotherapy 2 days ago. Now presents with intractable nausea vomiting as a side effect from the chemotherapy. I spoke extensively with the patient about goals of care and patient expressed that she does want to be DNR and DNI. She however is not ready for palliative care or hospice. She is very insistent that she wants to get treatment. She states that she tolerated the treatment in the past just fine and believes that she will do better with her second go on this new regimen. She states that she does not feel as though she has cancer nor does she feel as though she is sick until this most recent episode. I spoke to her about possibly consulting palliative care and having them talk to her however the patient is not at all interested at this time and states that she just wants to go through her primary care physician because she trusts him and likes him. Plan: We will treat side effects of chemotherapy while the patient is hospitalized and patient will return for outpatient treatment after discharge. Patient has scheduled appointment with oncology on 10/01/2017 and is also scheduled for lab draw and CT with contrast. If the patient is not discharged by that time we will make sure she gets it done while she is hospitalized. (7) COPD (chronic obstructive pulmonary disease) Conclusion/Plan: Patient has a history of COPD secondary to smoking. The patient uses nebulizer , inhaled corticosteroids and long-acting beta agonist at home. The patient does not appear to be in a COPD exacerbation. She does have chronic shortness of breath with exertion which is secondary to her chronic COPD and lung cancer. The patient currently is at her baseline. Plan: Patient will be placed on duo nebs as needed Patient will be placed on budesonide and formoterol twice daily Patient will receive supplemental oxygen as needed. Qualifiers: COPD type: emphysema Emphysema type: unspecified Qualified Code(s): J43.9 - Emphysema, unspecified (8) Tobacco abuse Conclusion/Plan: The patient continues to smoke cigarettes but has cut down to just 3-5 cigarettes a day. She does use a nicotine patch. She previously smoked one half packs per day for 50 years. The patient was again counseled on the need to quit smoking especially in the setting of metastatic lung cancer and COPD. The patient will be continued on her nicotine patch while she is hospitalized. (9) Hyperlipidemia Conclusion/Plan: Patient is a history of hyperlipidemia and is on simvastatin at home. We will continue the patient's home regimen if she is able to tolerate. Qualifiers: Hyperlipidemia type: unspecified Qualified Code(s): E78.5 - Hyperlipidemia , unspecified - Lab Results Lab results reviewed: Yes Fish Bones: 09/29/17 11:10 09/29/17 11:10 Other Lab Results: Laboratory Results WBC 4.8 x10^3/uL (4.8-10.8) 09/29/17 11:10 RBC 3.27 10^6/uL (4.20-5.40) L 09/29/17 11:10 Hgb 10.9 g/dL (12.0-16.0) L 09/29/17 11:10 Hct 31.8 % (37.0-47.0) L 09/29/17 11:10 MCV 97.3 fL (81.0-99.0) 09/29/17 11:10 MCH 33.3 pg (27.0-31.0) H 09/29/17 11:10 MCHC 34.3 g/dL (32.0-36.0) 09/29/17 11:10 RDW 14.2 % (12.0-15.0) 09/29/17 11:10 Plt Count 269 10^3/uL (130-450) 09/29/17 11:10 MPV 8.1 fL (7.9-10.8) 09/29/17 11:10 Neut # (Auto) 4.1 10^3/uL (1.5-6.6) 09/29/17 11:10 Lymph # (Auto) 0.6 10^3/uL (1.5-3.5) L 09/29/17 11:10 [place] # (Auto) 0.0 10^3/uL (0.0-1.0) 09/29/17 11:10 Eos # (Auto) 0.1 10^3/uL (0.0-0.7) 09/29/17 11:10 Baso # (Auto) 0.0 10^3/uL (0.0-0.1) 09/29/17 11:10 Absolute Nucleated RBC 0.00 x10^3/uL 09/29/17 11:10 Nucleated RBC % 0.1 /100WBC 09/29/17 11:10 Sodium 132 mmol/L (135-145) L 09/29/17 11:10 Potassium 3.2 mmol/L (3.5-5.0) L 09/29/17 11:10 Chloride 97 mmol/L (101-111) L 09/29/17 11:10 Carbon Dioxide 24 mmol/L (21-32) 09/29/17 11:10 Anion Gap 11.0 (6-13) 09/29/17 11:10 BUN 36 mg/dL (6-20) H 09/29/17 11:10 Creatinine 0.7 mg/dL (0.4-1.0) 09/29/17 11:10 Estimated GFR (MDRD) 84 (>89) L 09/29/17 11:10 Glucose 90 mg/dL (70-100) 09/29/17 11:10 Calcium 9.1 mg/dL (8.5-10.3) 09/29/17 11:10 Total Bilirubin 1.2 mg/dL (0.2-1.0) H 09/29/17 11:10 AST 49 IU/L (10-42) H 09/29/17 11:10 ALT 36 IU/L (10-60) 09/29/17 11:10 Alkaline Phosphatase 61 IU/L (42-121) 09/29/17 11:10 Troponin I < 0.04 ng/mL (<0.49) 09/29/17 11:10 Total Protein 8.3 g/dL (6.7-8.2) H 09/29/17 11:10 Albumin 3.4 g/dL (3.2-5.5) 09/29/17 11:10 Globulin 4.9 g/dL (2.1-4.2) H 09/29/17 11:10 Albumin/Globulin Ratio 0.7 (1.0-2.2) L 09/29/17 11:10 Lipase 38 U/L (22-51) 09/29/17 11:10 Urine Color YELLOW 09/29/17 12:25 Urine Clarity CLEAR (CLEAR) 09/29/17 12:25 Urine pH 7.0 PH (5.0-7.5) 09/29/17 12:25 Ur Specific [place] 1.015 (1.002-1.030) 09/29/17 12:25 Urine Protein NEGATIVE mg/dL (NEGATIVE) 09/29/17 12:25 Urine Glucose (UA) NEGATIVE mg/dL (NEGATIVE) 09/29/17 12:25 Urine Ketones NEGATIVE mg/dL (NEGATIVE) 09/29/17 12:25 Urine Occult Blood TRACE-INTA (NEGATIVE) 09/29/17 12:25 Urine Nitrite NEGATIVE (NEGATIVE) 09/29/17 12:25 Urine Bilirubin NEGATIVE (NEGATIVE) 09/29/17 12:25 Urine Urobilinogen 0.2 (NORMAL) E.U./dL (NORMAL) 09/29/17 12:25 Ur Leukocyte Esterase NEGATIVE (NEGATIVE) 09/29/17 12:25 Ur Microscopic Review NOT INDICATED 09/29/17 12:25 Urine Culture Comments NOT INDICATED 09/29/17 12:25 - Diagnostic Imaging Results Diagnostic Imaging Results: positive: Final report reviewed Diagnostic Imaging Results Comments: Chest x-ray Impression: Trace right pleural effusion with atelectasis Core Measures - Anticipated LOS I expect patient to be DC'd or transferred within 96 hours.: Yes - DVT/VTE - Prophylaxis VTE/DVT Prophylaxis med ordered at admit?: Yes
[2017-09-29 14:33] LABS: MAGNESIUM 1.7 mg/dL (1.7-2.8); PHOSPHORUS 2.9 mg/dL (2.5-4.6)
[2017-09-29] MEDS: NS W/20 MEQ KCL 1,000 ML IV SCH (15:33)
[2017-09-29] MEDS: ONDANSETRON 4 MG/2 ML VIAL IVP PRN ×2 (15:43→20:22)
[2017-09-29] MEDS: SODIUM CHLORIDE FLUSH 0.9% 10 ML SYRINGE IVP SCH (15:56)
[2017-09-29] MEDS: PROCHLORPERAZINE 10 MG/2 ML VIAL IVP PRN ×2 (16:38→23:26)
[2017-09-29] MEDS: SODIUM CHLORIDE FLUSH 0.9% 10 ML SYRINGE IVP PRN ×3 (16:39→20:22)
[2017-09-29] MEDS ORDERED: PROCHLORPERAZINE 25 MG SUPP PR PRN (16:53)
[2017-09-29] MEDS: FORMOTEROL FUMARATE NEB 20 MCG/2 ML INH SCH ×2 (16:53→20:48)
[2017-09-29] MEDS: BUDESONIDE 0.5 MG/2 ML NEB INH SCH ×2 (16:53→20:48)
[2017-09-29] MEDS: HYDROmorphone 2 MG/ML VIAL IVP PRN ×3 (17:16→23:26)
[2017-09-29] MEDS: NICOTINE 21 MG PATCH TOP SCH (17:16)
[2017-09-29] MEDS: ATORVASTATIN 10 MG TABLET PO SCH (20:20)
[2017-09-30] MEDS: NS W/20 MEQ KCL 1,000 ML IV SCH ×3 (01:42→21:54)
[2017-09-30] MEDS: SODIUM CHLORIDE FLUSH 0.9% 10 ML SYRINGE IVP SCH ×4 (01:44→23:32)
[2017-09-30] MEDS: ONDANSETRON 4 MG/2 ML VIAL IVP PRN ×2 (02:07→08:40)
[2017-09-30] MEDS: HYDROmorphone 2 MG/ML VIAL IVP PRN ×7 (02:07→23:41)
[2017-09-30 06:14] LABS: BASOPHILS % (AUTO) 0.3 %; LYMPHOCYTES # (AUTO) 0.5 10^3/uL (1.5-3.5); MEAN CORPUSCULAR VOLUME 98.5 fL (81.0-99.0); NEUTROPHILS # (AUTO) 1.1 10^3/uL (1.5-6.6)
[2017-09-30] MEDS: SODIUM CHLORIDE FLUSH 0.9% 10 ML SYRINGE IVP PRN ×2 (06:16)
[2017-09-30] MEDS: PROCHLORPERAZINE 10 MG/2 ML VIAL IVP PRN (06:16)
[2017-09-30 06:24] LABS: EOSINOPHILS % (AUTO) 1.5 %; LYMPHOCYTES % (AUTO) 28.1 %; MEAN CORPUSCULAR HEMOGLOBIN 33.4 pg (27.0-31.0); MEAN CORPUSCULAR HGB CONC 33.9 g/dL (32.0-36.0); MONOCYTES % (AUTO) 0.8 %; NEUTROPHILS % (AUTO) 69.3 %; PLT - PLATELET COUNT 184 10^3/uL (130-450); RED CELL DISTRIBUTION WIDTH 14.2 % (12.0-15.0)
[2017-09-30 06:27] LABS: ALBUMIN 2.8 g/dL (3.2-5.5); ALBUMIN/GLOBULIN RATIO 0.7 (1.0-2.2); BILIRUBIN,TOTAL 1.2 mg/dL (0.2-1.0); CALCIUM 8.3 mg/dL (8.5-10.3); CREATININE 0.7 mg/dL (0.4-1.0); MAGNESIUM 1.5 mg/dL (1.7-2.8); PHOSPHORUS 2.3 mg/dL (2.5-4.6); TOTAL PROTEIN 6.8 g/dL (6.7-8.2)
[2017-09-30 06:28] LABS: INR 1.1 (0.8-1.2); PT - PROTHROMBIN TIME 11.9 secs (9.9-12.6); WHITE BLOOD COUNT 1.6 x10^3/uL (4.8-10.8)
[2017-09-30 06:58] LABS: PLATELET ESTIMATE, MANUAL NORMAL (130-450,000) (NORMAL); PLATELET MORPHOLOGY NORMAL APPEARANCE (NORMAL); RBC MORPHOLOGY (MULTIPLE) NORMAL APPEARANCE (NORMAL)
[2017-09-30] MEDS: BUDESONIDE 0.5 MG/2 ML NEB INH SCH ×2 (08:31→20:01)
[2017-09-30] MEDS: FORMOTEROL FUMARATE NEB 20 MCG/2 ML INH SCH ×2 (08:31→20:01)
[2017-09-30] MEDS: POLYETHYLENE GLYCOL 3350 17 GM PACKET PO SCH (08:33)
[2017-09-30] MEDS: oxyCODONE 5 MG TABLET PO PRN ×4 (08:34→21:52)
[2017-09-30] MEDS: FAMOTIDINE 20 MG TABLET PO SCH (08:34)
[2017-09-30] MEDS: NICOTINE 21 MG PATCH TOP SCH (08:37)
[2017-09-30] MEDS: ENOXAPARIN 40 MG/0.4 ML SYRINGE SUBQ SCH (08:41)
--- NOTE | 2017-09-30 10:51 | PROVIDER PROGRESS NOTE ---
Assessment/Plan - Problem List (1) Intractable nausea and vomiting Qualifiers: Vomiting type: unspecified Qualified Code(s): R11.2 - Nausea with vomiting , unspecified Assessment/Plan: The patient presents with intractable nausea and vomiting which is likely secondary to side effects from the chemotherapy. The patient last received chemotherapy on 09/27/17. The patient states he has not been able to keep anything down for the last 3-4 days and has been having intractable nausea and vomiting. Today the patient continues to be nauseated and has been unable to eat any more than half a spoon of jello. She does not appear well enough to go home today. She continues to have nausea and will need to be able to keep her pain meds down to tolerate being home. She also needs adequate nutrition which at this point she cannot get in her current condition. Given that the patient will need to stay another midnight I will switch her to inpatient status. Plan: Continue IV antiemetics IV fluids Electrolyte replacement Full liquid diet Qualifiers: Vomiting type: unspecified Qualified Code(s): R11.2 - Nausea with vomiting , unspecified (2) Chronic back pain Conclusion/Plan: The patient has chronic back pain since her T11 vertebral body burst fracture which required corpectomy at [facility] in November 2016. The patient uses oxycodone at home along with Tylenol for her pain. She has been unable to keep any of her oral pain medications down the last 3-4 days. She is also had the pain exacerbated by vomiting. The patient presents with intractable pain. Patient states pain is better controlled with IV dilaudid but she is still requiring it almost every 2 hours. She has been unable to tolerate PO pain meds. She wants to try to see if she can keep the oxycodone down today. She is not well enough to go home today but once she can tolerate PO pain meds then she will be able to go home. Plan: Patient be placed on IV Dilaudid and oral oxycodone as well as oral Tylenol if she is able to tolerate it. We will give her antiemetics and monitor her closely. Qualifiers: Back pain location: thoracic back pain Back pain laterality: midline Qualified Code(s): M54.6 - Pain in thoracic spine; G89.29 - Other chronic pain; G89.29 - Other chronic pain (3) Hypokalemia Conclusion/Plan: Resolved with potassium replacement (4) Dehydration Conclusion/Plan: Improving with IVFs and antiemetics but patient still nauseated and unable to eat any significant amount. (5) Hyponatremia Conclusion/Plan: The patient presents with sodium of 132. Na is 133 today with IVFs. Improved and will continue IVF and to monitor Na. (6) Metastatic non-small cell lung cancer Conclusion/Plan: The patient has a history of metastatic small cell lung cancer status post 6 cycles of carboplatin and etoposide until April 06, 2017, history of T11 vertebral body burst fracture, requiring corpectomy at [facility], status post prophylactic whole brain radiation and chest radiation in June 2017 with progression of cancer. Now on second line treatment with topotecan for 5 days every 21 days. She just completed her last dose of chemotherapy 2 days ago. Now presents with intractable nausea vomiting as a side effect from the chemotherapy. I spoke extensively with the patient about goals of care and patient expressed that she does want to be DNR and DNI. She however is not ready for palliative care or hospice. She is very insistent that she wants to get treatment. She states that she tolerated the treatment in the past just fine and believes that she will do better with her second go on this new regimen. She states that she does not feel as though she has cancer nor does she feel as though she is sick until this most recent episode. I spoke to her about possibly consulting palliative care and having them talk to her however the patient is not at all interested at this time and states that she just wants to go through her primary care physician because she trusts him and likes him. Plan: We will treat side effects of chemotherapy while the patient is hospitalized and patient will return for outpatient treatment after discharge. Patient has scheduled appointment with oncology on 10/01/2017 and is also scheduled for lab draw and CT with contrast. Patient is going to need to stay another day therefore we will need to call the [facility] [place] clinic tomorrow to see if patient can be seen by her oncologist and we will see if patient can get CT scan tomorrow while in the hospital. (7) COPD (chronic obstructive pulmonary disease) Conclusion/Plan: Patient has a history of COPD secondary to smoking. The patient uses nebulizer , inhaled corticosteroids and long-acting beta agonist at home. The patient does not appear to be in a COPD exacerbation. She does have chronic shortness of breath with exertion which is secondary to her chronic COPD and lung cancer. The patient currently is at her baseline. Plan: Continue on duo nebs as needed, budesonide and formoterol twice daily Patient will receive supplemental oxygen as needed. Qualifiers: COPD type: emphysema Emphysema type: unspecified Qualified Code(s): J43.9 - Emphysema, unspecified (8) Tobacco abuse Conclusion/Plan: The patient continues to smoke cigarettes but has cut down to just 3-5 cigarettes a day. She does use a nicotine patch. She previously smoked one half packs per day for 50 years. The patient was again counseled on the need to quit smoking especially in the setting of metastatic lung cancer and COPD. The patient will be continued on her nicotine patch while she is hospitalized. (9) Hyperlipidemia Conclusion/Plan: Patient is a history of hyperlipidemia and is on simvastatin at home. We will continue the patient's home regimen if she is able to tolerate. Qualifiers: Hyperlipidemia type: unspecified Qualified Code(s): E78.5 - Hyperlipidemia , unspecified - Current Meds Current Meds: Current Medications Generic Name Dose Route Start Last Admin Trade Name Freq PRN Reason Stop Dose Admin Atorvastatin Calcium 10 mg 09/29/17 21:00 09/29/17 20:20 Lipitor PO 10 mg QPM JATIN Administration Budesonide 0.5 mg 09/29/17 15:00 09/30/17 08:31 Pulmicort INH Not Given RTBID JATIN Enoxaparin Sodium 40 mg 09/30/17 09:00 09/30/17 08:41 Lovenox SUBQ Not Given DAILY JATIN Famotidine 20 mg 09/30/17 09:00 09/30/17 08:34 Pepcid PO 20 mg DAILY JATIN Administration Formoterol Fumarate 20 mcg 09/29/17 15:00 09/30/17 08:31 Perforomist INH Not Given RTBID JATIN Hydromorphone HCl 2 mg 09/29/17 16:53 09/30/17 06:10 Dilaudid (Vial) IVP 2 mg Q2HR PRN Administration Pain 8 to 10 Potassium Chloride/Sodium Chloride 1,000 mls @ 100 mls/hr 09/29/17 15:00 06:43 Normal Saline 0.9% W/20 Meq Kcl IV 100 mls/hr .Q10H JATIN Infusion Nicotine 1 patch 08/12/18 17:00 09/30/17 08:37 Nicoderm TOP 1 patch DAILY JATIN Administration Ondansetron HCl 4 mg 09/29/17 14:10 09/30/17 08:40 Zofran Inj IVP 4 mg Q6HR PRN Administration Nausea / Vomiting Oxycodone HCl 10 mg 09/29/17 14:10 09/30/17 08:34 Roxicodone PO 10 mg Q4HR PRN Administration Pain 8 to 10 Polyethylene Glycol 17 gm 09/30/17 09:00 09/30/17 08:33 Miralax PO 17 gm DAILY JATIN Administration Prochlorperazine Edisylate 10 mg 09/29/17 14:10 09/30/17 06:16 Compazine Inj IVP 10 mg Q6HR PRN Administration Nausea / Vomiting Sodium Chloride 10 ml 09/29/17 14:10 09/30/17 06:16 Normal Saline Flush 0.9% IVP 10 ml PRN PRN Administration NEEDED PER PROVIDER ORDERS Sodium Chloride 10 ml 09/29/17 17:00 09/30/17 08:37 Normal Saline Flush 0.9% IVP Not Given 0100,0900,1700 JATIN Sodium Chloride 20 ml 09/30/17 05:13 09/30/17 06:16 Normal Saline Flush 0.9% IVP 20 ml PRN PRN Administration After Blood Draw - Lab Result Lab results reviewed: Yes Fish Bone Diagrams: 09/30/17 06:07 09/30/17 06:07 - Diagnostic Imaging Results Diagnostic Imaging Results: Final report reviewed - Additional Planning Condition/Complexity: Guarded My Orders: My Active Orders 09/29/17 15:17 RT [Nebulizer/MDI Tx.] [RC] .bid& q4prn 09/29/17 15:21 Nutrition Consult [CONS] Routine 09/29/17 16:53 HYDROmorphone (VIAL) [Dilaudid (Vial)] 2 mg IVP Q2HR PRN Prochlorperazine Supp [Compazine Supp] 25 mg LA TID PRN 09/29/17 17:00 Nicotine 21 mg Patch [Nicoderm] 1 patch TOP DAILY 09/30/17 05:13 Sodium Chloride Flush 0.9% [Normal Saline Flush 0.9%] 20 ml IVP PRN PRN 09/30/17 09:57 Admit [Admit \ Transfer \ Status] [RC] .ONCE Plan Discussed with:: Patient Time Spent: 31-60 minutes Subjective - Subjective Patient Reports: Back Pain (Anytime she gets up to go to bathroom she has severe pain and and she continues to require dilaudid every 2 hours.), Nausea ( COntinues to feel nauseated), Other (No fevers or chills.) Nursing Reports: Nausea Objective Vital Signs: Vital Signs - 24 hr 09/29/17 09/29/17 09/29/17 14:26 15:54 23:45 Temperature 37.1 C 36.5 C 36.5 C Heart Rate 103 H Heart Rate [ 79 75 Brachial] Respiratory 18 16 18 Rate Blood Pressure 118/84 H Blood Pressure 130/88 H 124/77 [Right Brachial artery] O2 Saturation 95 97 92 09/30/17 09/30/17 08:00 08:31 Temperature 36.6 C Heart Rate 74 Heart Rate [ 75 Brachial] Respiratory 16 19 Rate Blood Pressure Blood Pressure 120/78 [Right Brachial artery] O2 Saturation 94 Oxygen O2 Source Room air I&O (Last 24 Hrs): Intake and Output Totals x24h 09/28/17 09/29/17 09/30/17 23:59 23:59 23:59 Intake Total 393.317 6444.000 Output Total 575 400 Balance -48.333 925.000 General: Alert, Oriented x3, Cooperative, Mild distress (Pain and nausea), Other (Cachectic) HEENT: Atraumatic, PERRLA, EOMI, Other (Dry mucus membranes) Neck: Supple, No JVD, No thyromegaly, +2 carotid pulse wo bruit, No LAD Lymphatic: no adenopathy Neuro: Alert, Non Focal, CN 2-12 Grossly Intact, Oriented Times 3 Cardiovascular: Regular rate, Normal S1, Normal S2, No murmurs Respiratory: Chest non-tender, Other (Decreased breath sounds bilaterally) Abdomen: Normal bowel sounds, Soft, No tenderness, No hepatospenomegaly Extremities: No clubbing, No cyanosis, No edema, Normal pulses Skin: No rashes, No breakdown - Results Results: Laboratory Results WBC 1.6 x10^3/uL (4.8-10.8) L* 09/30/17 06:07 RBC 2.70 10^6/uL (4.20-5.40) L 09/30/17 06:07 Hgb 9.0 g/dL (12.0-16.0) L 09/30/17 06:07 Hct 26.6 % (37.0-47.0) L 09/30/17 06:07 MCV 98.5 fL (81.0-99.0) 09/30/17 06:07 MCH 33.4 pg (27.0-31.0) H 09/30/17 06:07 MCHC 33.9 g/dL (32.0-36.0) 09/30/17 06:07 RDW 14.2 % (12.0-15.0) 09/30/17 06:07 Plt Count 184 10^3/uL (130-450) 09/30/17 06:07 MPV 7.0 fL (7.9-10.8) L 09/30/17 06:07 Neut # (Auto) 1.1 10^3/uL (1.5-6.6) L 09/30/17 06:07 Lymph # (Auto) 0.5 10^3/uL (1.5-3.5) L 09/30/17 06:07 [place] # (Auto) 0.0 10^3/uL (0.0-1.0) 09/30/17 06:07 Eos # (Auto) 0.0 10^3/uL (0.0-0.7) 09/30/17 06:07 Baso # (Auto) 0.0 10^3/uL (0.0-0.1) 09/30/17 06:07 Absolute Nucleated RBC 0.00 x10^3/uL 09/30/17 06:07 Nucleated RBC % 0.2 /100WBC 09/30/17 06:07 Manual Slide Review Indicated 09/30/17 06:07 WBC Morphology NORMAL APPEARANCE (NORMAL) 09/30/17 06:07 Platelet Estimate NORMAL (130-450,000) (NORMAL) 09/30/17 06:07 Platelet Morphology NORMAL APPEARANCE (NORMAL) 09/30/17 06:07 RBC Morph Micro Appear NORMAL APPEARANCE (NORMAL) 09/30/17 06:07 PT 11.9 secs (9.9-12.6) 09/30/17 06:07 INR 1.1 (0.8-1.2) 09/30/17 06:07 Sodium 133 mmol/L (135-145) L 09/30/17 06:07 Potassium 4.0 mmol/L (3.5-5.0) 09/30/17 06:07 Chloride 106 mmol/L (101-111) 09/30/17 06:07 Carbon Dioxide 21 mmol/L (21-32) 09/30/17 06:07 Anion Gap 6.0 (6-13) 09/30/17 06:07 BUN 22 mg/dL (6-20) H 09/30/17 06:07 Creatinine 0.7 mg/dL (0.4-1.0) 09/30/17 06:07 Estimated GFR (MDRD) 84 (>89) L 09/30/17 06:07 Glucose 85 mg/dL (70-100) 09/30/17 06:07 Lactic Acid 0.6 mmol/L (0.5-2.2) 09/30/17 06:07 Calcium 8.3 mg/dL (8.5-10.3) L 09/30/17 06:07 Phosphorus 2.3 mg/dL (2.5-4.6) L 09/30/17 06:07 Magnesium 1.5 mg/dL (1.7-2.8) L 09/30/17 06:07 Total Bilirubin 1.2 mg/dL (0.2-1.0) H 09/30/17 06:07 AST 42 IU/L (10-42) 09/30/17 06:07 ALT 34 IU/L (10-60) 09/30/17 06:07 Alkaline Phosphatase 51 IU/L (42-121) 09/30/17 06:07 Troponin I < 0.04 ng/mL (<0.49) 09/29/17 11:10 Total Protein 6.8 g/dL (6.7-8.2) 09/30/17 06:07 Albumin 2.8 g/dL (3.2-5.5) L 09/30/17 06:07 Globulin 4.0 g/dL (2.1-4.2) 09/30/17 06:07 Albumin/Globulin Ratio 0.7 (1.0-2.2) L 09/30/17 06:07 Lipase 38 U/L (22-51) 09/29/17 11:10 Urine Color YELLOW 09/29/17 12:25 Urine Clarity CLEAR (CLEAR) 09/29/17 12:25 Urine pH 7.0 PH (5.0-7.5) 09/29/17 12:25 Ur Specific [place] 1.015 (1.002-1.030) 09/29/17 12:25 Urine Protein NEGATIVE mg/dL (NEGATIVE) 09/29/17 12:25 Urine Glucose (UA) NEGATIVE mg/dL (NEGATIVE) 09/29/17 12:25 Urine Ketones NEGATIVE mg/dL (NEGATIVE) 09/29/17 12:25 Urine Occult Blood TRACE-INTA (NEGATIVE) 09/29/17 12:25 Urine Nitrite NEGATIVE (NEGATIVE) 09/29/17 12:25 Urine Bilirubin NEGATIVE (NEGATIVE) 09/29/17 12:25 Urine Urobilinogen 0.2 (NORMAL) E.U./dL (NORMAL) 09/29/17 12:25 Ur Leukocyte Esterase NEGATIVE (NEGATIVE) 09/29/17 12:25 Ur Microscopic Review NOT INDICATED 09/29/17 12:25 Urine Culture Comments NOT INDICATED 09/29/17 12:25 - Procedures Procedures: Procedures INSERT INFUSION DEV IN L INT JUGULAR VEIN, PERC (12/31/16) INSERT VAD RESERVOIR IN CHEST SUBCU/FASCIA, OPEN (12/31/16) ABX Reporting Has patient been on IV antibiotics over the past 48 hours?: No Current Medications - Current Medications Current Medications: Active Medications Generic Name Dose Route Start Last Admin Trade Name Freq PRN Reason Stop Dose Admin Acetaminophen 650 mg 09/29/17 14:10 Tylenol PO Q4HR PRN Pain 1 to 4 Albuterol/Ipratropium 3 ml 09/29/17 14:10 Duoneb INH Q4HR PRN Wheezing Atorvastatin Calcium 10 mg 09/29/17 21:00 09/29/17 20:20 Lipitor PO 10 mg QPM JATIN Administration Budesonide 0.5 mg 09/29/17 15:00 09/30/17 08:31 Pulmicort INH Not Given RTBID JATIN Enoxaparin Sodium 40 mg 09/30/17 09:00 09/30/17 08:41 Lovenox SUBQ Not Given DAILY JATIN Famotidine 20 mg 09/30/17 09:00 09/30/17 08:34 Pepcid PO 20 mg DAILY JATIN Administration Formoterol Fumarate 20 mcg 09/29/17 15:00 09/30/17 08:31 Perforomist INH Not Given RTBID JATIN Hydromorphone HCl 2 mg 09/29/17 16:53 09/30/17 10:28 Dilaudid (Vial) IVP 2 mg Q2HR PRN Administration Pain 8 to 10 Potassium Chloride/Sodium Chloride 1,000 mls @ 100 mls/hr 09/29/17 15:00 06:43 Normal Saline 0.9% W/20 Meq Kcl IV 100 mls/hr .Q10H JATIN Infusion Nicotine 1 patch 09/29/17 17:00 09/30/17 08:37 Nicoderm TOP 1 patch DAILY JATIN Administration Ondansetron HCl 4 mg 09/29/17 14:10 09/30/17 08:40 Zofran Inj IVP 4 mg Q6HR PRN Administration Nausea / Vomiting Oxycodone HCl 5 mg 09/29/17 14:10 Roxicodone PO Q4HR PRN Pain 5 to 7 Oxycodone HCl 10 mg 09/29/17 14:10 09/30/17 08:34 Roxicodone PO 10 mg Q4HR PRN Administration Pain 8 to 10 Polyethylene Glycol 17 gm 09/30/17 09:00 09/30/17 08:33 Miralax PO 17 gm DAILY JATIN Administration Prochlorperazine Edisylate 10 mg 09/29/17 14:10 09/30/17 06:16 Compazine Inj IVP 10 mg Q6HR PRN Administration Nausea / Vomiting Prochlorperazine Maleate 25 mg 09/29/17 16:53 Compazine Supp LA TID PRN Nausea / Vomiting Promethazine HCl 25 mg 09/29/17 14:10 Phenergan Inj IM Q6HR PRN Nausea / Vomiting Sodium Chloride 10 ml 09/29/17 14:10 09/30/17 06:16 Normal Saline Flush 0.9% IVP 10 ml PRN PRN Administration NEEDED PER PROVIDER ORDERS Sodium Chloride 10 ml 09/29/17 17:00 09/30/17 08:37 Normal Saline Flush 0.9% IVP Not Given 0100,0900,1700 JATIN Sodium Chloride 20 ml 09/30/17 05:13 09/30/17 06:16 Normal Saline Flush 0.9% IVP 20 ml PRN PRN Administration After Blood Draw Zolpidem Tartrate 5 mg 09/29/17 14:10 Ambien PO QPM PRN Insomnia Albuterol 0.63 mg INH Q4H PRN 09/29/17 Albuterol Sulf [Ventolin Hfa Inhaler] 1 - 2 puffs INH Q4HR PRN 09/29/17 Gabapentin [Gabapentin] 300 mg PO QPM 09/29/17 Hydrocodone/Acetaminophen [Hydrocodone-Acetamin 5-325 mg] 1 each PO QPM PRN 02/04 Ondansetron HCl [Zofran] 8 mg TL BID 09/29/17 Prochlorperazine [Compazine] 10 mg PO Q6H PRN 09/29/17 tiZANidine [Zanaflex] 4 mg PO Q8H PRN 09/29/17
[2017-09-30] MEDS: ATORVASTATIN 10 MG TABLET PO SCH (20:47)
[2017-10-01] MEDS: HYDROmorphone 2 MG/ML VIAL IVP PRN ×5 (04:18→16:37)
[2017-10-01] MEDS: SODIUM CHLORIDE FLUSH 0.9% 10 ML SYRINGE IVP PRN ×2 (05:46)
[2017-10-01] MEDS: oxyCODONE 5 MG TABLET PO PRN ×4 (05:46→21:06)
[2017-10-01 06:12] LABS: EOSINOPHILS % (AUTO) 1.2 %; HGB - HEMOGLOBIN 9.3 g/dL (12.0-16.0); LYMPHOCYTES % (AUTO) 72.7 %; MEAN CORPUSCULAR HEMOGLOBIN 33.1 pg (27.0-31.0); MEAN CORPUSCULAR HGB CONC 33.9 g/dL (32.0-36.0); MEAN CORPUSCULAR VOLUME 97.8 fL (81.0-99.0); MONOCYTES % (AUTO) 1.5 %; NEUTROPHILS % (AUTO) 23.6 %; PLT - PLATELET COUNT 155 10^3/uL (130-450)
[2017-10-01 06:24] LABS: WHITE BLOOD COUNT 0.6 x10^3/uL (4.8-10.8)
[2017-10-01 06:26] LABS: ABNORMAL LYMPHS % (MANUAL) 0 %
[2017-10-01 06:28] LABS: ALBUMIN 2.8 g/dL (3.2-5.5); ALBUMIN/GLOBULIN RATIO 0.7 (1.0-2.2); BILIRUBIN,TOTAL 1.3 mg/dL (0.2-1.0); CALCIUM 8.4 mg/dL (8.5-10.3); CREATININE 0.7 mg/dL (0.4-1.0); MAGNESIUM 1.4 mg/dL (1.7-2.8); PHOSPHORUS 2.3 mg/dL (2.5-4.6)
[2017-10-01 07:04] LABS: NEUTROPHILS % (MANUAL) 26 %
[2017-10-01 07:05] LABS: BAND NEUTROPHILS % (MANUAL) 2 %; DIFFERENTIAL COMMENT MANUAL DIFFERENTIAL; LYMPHOCYTES # (MANUAL) 0.4 10^3/uL (1.5-3.5); LYMPHOCYTES % (MANUAL) 62 %; NEUTROPHILS # (MANUAL) 0.2 10^3/uL (1.5-6.6); PLATELET ESTIMATE, MANUAL NORMAL (130-450,000) (NORMAL); PLATELET MORPHOLOGY NORMAL APPEARANCE (NORMAL); RBC MORPHOLOGY (MULTIPLE) 1+ HYPOCHROMASIA (NORMAL)
[2017-10-01] MEDS: FORMOTEROL FUMARATE NEB 20 MCG/2 ML INH SCH ×2 (08:00→22:53)
[2017-10-01] MEDS: BUDESONIDE 0.5 MG/2 ML NEB INH SCH ×2 (08:00→22:53)
[2017-10-01] MEDS: ENOXAPARIN 40 MG/0.4 ML SYRINGE SUBQ SCH (08:30)
[2017-10-01] MEDS: NICOTINE 21 MG PATCH TOP SCH (08:31)
[2017-10-01] MEDS: FAMOTIDINE 20 MG TABLET PO SCH (08:31)
[2017-10-01] MEDS: NS W/20 MEQ KCL 1,000 ML IV SCH ×2 (08:31→11:13)
[2017-10-01] MEDS: POLYETHYLENE GLYCOL 3350 17 GM PACKET PO SCH (08:31)
[2017-10-01] MEDS: DOCUSATE SODIUM 250 MG CAPSULE PO SCH (08:34)
[2017-10-01] MEDS: SENNA 8.6 MG TABLET PO SCH (08:35)
[2017-10-01] MEDS: SODIUM CHLORIDE FLUSH 0.9% 10 ML SYRINGE IVP SCH ×2 (08:35→16:39)
[2017-10-01] MEDS: NEUTRA-PHOS 250 MG TABLET PO SCH ×2 (11:21→16:38)
[2017-10-01] MEDS: MAGNESIUM SULFATE 2 GRAM 2 GM/50 ML BAG IV SCH ×2 (11:21→12:17)
--- NOTE | 2017-10-01 18:31 | PROVIDER PROGRESS NOTE ---
Assessment/Plan - Problem List (1) Leukopenia due to antineoplastic chemotherapy Assessment/Plan: New drop in WBC, after chemo 2 days ago was completed. Will add low-bacterial diet. Monitor temp and daily CBC. (2) Intractable nausea and vomiting Qualifiers: Vomiting type: unspecified Qualified Code(s): R11.2 - Nausea with vomiting , unspecified Assessment/Plan: Improved without nausea but still anorexic. Continue iv fluids at a decreased rate, due to rhonchi. Advance diet from soft diet as tolerated. (3) Dehydration Assessment/Plan: Continue iv hydration at a slower rate however due to rhonchi. Monitor BMP daily. (4) Metastatic non-small cell lung cancer Assessment/Plan: Pt was to have a [facility] clinic visit with Dr Li Oncology today. [facility] clinic was notified yesterday that she is currently an inpatient. Her scheduled outpt CT chest for F/U of the lung CA will not be done due to current cough, and possible acute pulmonary process, not at baseline to evaluate for her lung CA. Await Dr Li or Arlyn Garcia NP from [facility] Oncology for further recommendation. - Current Meds Current Meds: Current Medications Generic Name Dose Route Start Last Admin Trade Name Freq PRN Reason Stop Dose Admin Atorvastatin Calcium 10 mg 09/29/17 21:00 09/30/17 20:47 Lipitor PO 10 mg QPM JATIN Administration Budesonide 0.5 mg 09/29/17 15:00 10/01/17 08:00 Pulmicort INH Not Given RTBID JATIN Docusate Sodium 250 - 500 mg 10/01/17 09:00 10/01/17 08:34 Colace 250mg Capsule PO Not Given DAILY JATIN Enoxaparin Sodium 40 mg 09/30/17 09:00 10/01/17 08:30 Lovenox SUBQ Not Given DAILY JATIN Famotidine 20 mg 09/30/17 09:00 10/01/17 08:31 Pepcid PO 20 mg DAILY JATIN Administration Formoterol Fumarate 20 mcg 09/29/17 15:00 10/01/17 08:00 Perforomist INH Not Given RTBID JATIN Hydromorphone HCl 2 mg 09/29/17 16:53 10/01/17 16:37 Dilaudid (Vial) IVP 2 mg Q2HR PRN Administration Pain 8 to 10 Potassium Chloride/Sodium Chloride 1,000 mls @ 60 mls/hr 10/01/17 11:06 10/01 11:13 Normal Saline 0.9% W/20 Meq Kcl IV 60 mls/hr .[id number] JATIN Administration Nicotine 1 patch 09/29/17 17:00 10/01/17 08:31 Nicoderm TOP 1 patch DAILY JATIN Administration Ondansetron HCl 4 mg 09/29/17 14:10 09/30/17 08:40 Zofran Inj IVP 4 mg Q6HR PRN Administration Nausea / Vomiting Oxycodone HCl 10 mg 09/29/17 14:10 10/01/17 16:38 Roxicodone PO 10 mg Q4HR PRN Administration Pain 8 to 10 Polyethylene Glycol 17 gm 09/30/17 09:00 10/01/17 08:31 Miralax PO 17 gm DAILY JATIN Administration Prochlorperazine Edisylate 10 mg 09/29/17 14:10 09/30/17 06:16 Compazine Inj IVP 10 mg Q6HR PRN Administration Nausea / Vomiting Senna 8.6 - 17.2 mg 10/01/17 09:00 10/01/17 08:35 Senokot PO Not Given DAILY JATIN Sodium Chloride 10 ml 09/29/17 14:10 10/01/17 05:46 Normal Saline Flush 0.9% IVP 10 ml PRN PRN Administration NEEDED PER PROVIDER ORDERS Sodium Chloride 10 ml 09/29/17 17:00 10/01/17 16:39 Normal Saline Flush 0.9% IVP Not Given 0100,0900,1700 JATIN Sodium Chloride 20 ml 09/30/17 05:13 10/01/17 05:46 Normal Saline Flush 0.9% IVP 20 ml PRN PRN Administration After Blood Draw Sodium Phosphate 250 mg 10/01/17 12:00 10/01/17 16:38 K-Phos Neutral PO 10/02/17 23:00 250 mg TIDWM JATIN Administration - Lab Result Fish Bone Diagrams: 10/01/17 05:45 10/01/17 05:45 - Additional Planning My Orders: My Active Orders 10/01/17 11:05 IS [Incentive Spirometry - RT] [RC] .TID 10/01/17 11:06 Ns W/20 Meq KCl [Normal Saline 0.9% W/20 Meq KCl] 1,000 ml IV 60 mls/hr 10/01/17 12:00 Neutra-Phos [K-Phos Neutral] 250 mg PO TIDWM 10/01/17 Lunch Neutropenic (Low Microbial) Diet [DIET] Subjective - Subjective Patient Reports: Feeling Better, Cough, Other (No nausea this am, but only ate bites of her food.) Objective Vital Signs: Vital Signs - 24 hr 09/30/17 09/30/17 10/01/17 20:01 23:30 08:00 Temperature 36.8 C 36.7 C Heart Rate 73 84 Heart Rate [ 91 69 Brachial] Respiratory 16 16 20 Rate Blood Pressure 131/90 H 114/73 [Right Brachial artery] O2 Saturation 98 95 10/01/17 15:30 Temperature 36.5 C Heart Rate Heart Rate [ 82 Brachial] Respiratory 20 Rate Blood Pressure 112/67 [Right Brachial artery] O2 Saturation 93 Oxygen O2 Source Room air I&O (Last 24 Hrs): Intake and Output Totals x24h 09/29/17 09/30/17 10/01/17 23:59 23:59 23:59 Intake Total 2043.333 2146.667 Output Total 2300 2350 Balance -256.667 -203.333 General: Alert, Oriented x3 HEENT: Mucous membr. moist/pink Neck: Supple, No JVD Neuro: Non Focal Cardiovascular: Regular rate, No murmurs Respiratory: Rhonchi Abdomen: Soft, No tenderness Extremities: No edema, No tenderness/swelling - Results Results: Laboratory Results WBC 0.6 x10^3/uL (4.8-10.8) L* 10/01/17 05:45 RBC 2.80 10^6/uL (4.20-5.40) L 10/01/17 05:45 Hgb 9.3 g/dL (12.0-16.0) L 10/01/17 05:45 Hct 27.3 % (37.0-47.0) L 10/01/17 05:45 MCV 97.8 fL (81.0-99.0) 10/01/17 05:45 MCH 33.1 pg (27.0-31.0) H 10/01/17 05:45 MCHC 33.9 g/dL (32.0-36.0) 10/01/17 05:45 RDW 14.0 % (12.0-15.0) 10/01/17 05:45 Plt Count 155 10^3/uL (130-450) 10/01/17 05:45 MPV 7.0 fL (7.9-10.8) L 10/01/17 05:45 Neut # (Auto) Not Reportable 10/01/17 05:45 Lymph # (Auto) Not Reportable 10/01/17 05:45 [place] # (Auto) Not Reportable 10/01/17 05:45 Eos # (Auto) Not Reportable 10/01/17 05:45 Baso # (Auto) Not Reportable 10/01/17 05:45 Absolute Nucleated RBC Not Reportable 10/01/17 05:45 Total Counted 50 10/01/17 05:45 Band Neuts % (Manual) 2 % (0-10) 10/01/17 05:45 Reactive Lymphs % (Man) 8 % 10/01/17 05:45 Abnorm Lymph % (Manual) 0 % 10/01/17 05:45 Nucleated RBC % Not Reportable 10/01/17 05:45 Neutrophils # (Manual) 0.2 10^3/uL (1.5-6.6) L* 10/01/17 05:45 Lymphocytes # (Manual) 0.4 10^3/uL (1.5-3.5) L 10/01/17 05:45 Monocytes # (Manual) 0.0 10^3/uL (0.0-1.0) 10/01/17 05:45 Eosinophils # (Manual) 0.0 10^3/uL (0-0.7) 10/01/17 05:45 Basophils # (Manual) 0.0 10^3/uL (0-0.1) 10/01/17 05:45 Differential Comment MANUAL DIFFERENTIAL 10/01/17 05:45 Manual Slide Review Indicated 09/30/17 06:07 WBC Morphology NORMAL APPEARANCE (NORMAL) 09/30/17 06:07 Platelet Estimate NORMAL (130-450,000) (NORMAL) 10/01/17 05:45 Platelet Morphology NORMAL APPEARANCE (NORMAL) 10/01/17 05:45 RBC Morph Micro Appear 1+ HYPOCHROMASIA (NORMAL) 10/01/17 05:45 PT 11.9 secs (9.9-12.6) 09/30/17 06:07 INR 1.1 (0.8-1.2) 09/30/17 06:07 Sodium 130 mmol/L (135-145) L 10/01/17 05:45 Potassium 4.0 mmol/L (3.5-5.0) 10/01/17 05:45 Chloride 103 mmol/L (101-111) 10/01/17 05:45 Carbon Dioxide 22 mmol/L (21-32) 10/01/17 05:45 Anion Gap 5.0 (6-13) L 10/01/17 05:45 BUN 15 mg/dL (6-20) 10/01/17 05:45 Creatinine 0.7 mg/dL (0.4-1.0) 10/01/17 05:45 Estimated GFR (MDRD) 84 (>89) L 10/01/17 05:45 Glucose 88 mg/dL (70-100) 10/01/17 05:45 Lactic Acid 0.6 mmol/L (0.5-2.2) 09/30/17 06:07 Calcium 8.4 mg/dL (8.5-10.3) L 10/01/17 05:45 Phosphorus 2.3 mg/dL (2.5-4.6) L 10/01/17 05:45 Magnesium 1.4 mg/dL (1.7-2.8) L 10/01/17 05:45 Total Bilirubin 1.3 mg/dL (0.2-1.0) H 10/01/17 05:45 AST 37 IU/L (10-42) 10/01/17 05:45 ALT 35 IU/L (10-60) 10/01/17 05:45 Alkaline Phosphatase 60 IU/L (42-121) 10/01/17 05:45 Troponin I < 0.04 ng/mL (<0.49) 09/29/17 11:10 Total Protein 7.0 g/dL (6.7-8.2) 10/01/17 05:45 Albumin 2.8 g/dL (3.2-5.5) L 10/01/17 05:45 Globulin 4.2 g/dL (2.1-4.2) 10/01/17 05:45 Albumin/Globulin Ratio 0.7 (1.0-2.2) L 10/01/17 05:45 Lipase 38 U/L (22-51) 09/29/17 11:10 Urine Color YELLOW 09/29/17 12:25 Urine Clarity CLEAR (CLEAR) 09/29/17 12:25 Urine pH 7.0 PH (5.0-7.5) 09/29/17 12:25 Ur Specific [place] 1.015 (1.002-1.030) 09/29/17 12:25 Urine Protein NEGATIVE mg/dL (NEGATIVE) 09/29/17 12:25 Urine Glucose (UA) NEGATIVE mg/dL (NEGATIVE) 09/29/17 12:25 Urine Ketones NEGATIVE mg/dL (NEGATIVE) 09/29/17 12:25 Urine Occult Blood TRACE-INTA (NEGATIVE) 09/29/17 12:25 Urine Nitrite NEGATIVE (NEGATIVE) 09/29/17 12:25 Urine Bilirubin NEGATIVE (NEGATIVE) 09/29/17 12:25 Urine Urobilinogen 0.2 (NORMAL) E.U./dL (NORMAL) 09/29/17 12:25 Ur Leukocyte Esterase NEGATIVE (NEGATIVE) 09/29/17 12:25 Ur Microscopic Review NOT INDICATED 09/29/17 12:25 Urine Culture Comments NOT INDICATED 09/29/17 12:25 - Procedures Procedures: Procedures INSERT INFUSION DEV IN L INT JUGULAR VEIN, PERC (12/31/16) INSERT VAD RESERVOIR IN CHEST SUBCU/FASCIA, OPEN (12/31/16)
--- NOTE | 2017-10-01 18:51 | ONCOLOGY / HEMATOLOGY ---
DATE OF SERVICE: 10/01/2017 Physician: Baljit Li MD DIAGNOSES 1. Metastatic small cell lung cancer. a. Previously treated with 6 cycles of carbo and etoposide until March of 2017. b. Started second line chemotherapy with topotecan on 09/23/2017. c. Severe nausea and vomiting secondary to chemo. 2. History of T11 vertebral body burst fracture requiring colpectomy at [facility]. 3. Status post prophylactic whole brain radiation and chest radiation in June of 2017. 4. Pancytopenia secondary to chemotherapy. INTERVAL HISTORY: Patient is here today for followup. She had her last chemo on 09/27/2017. The next day, she started to have nausea and vomiting. None of the oral antinausea medications worked. She could not keep any food or fluids down. She came through the emergency room. She was found to have pancytopenia with a white count of 0.6, hematocrit of 27.3, and a platelet count of 155. Neutrophil count is 0.2. Since she came in, she has felt better. She is able to eat some food and that helped her nausea. No fever or chills. No other complaints. REVIEW OF SYSTEMS: For complete review of systems, see today's assessment form. PAST, FAMILY, AND SOCIAL HISTORY: She is a former smoker. PHYSICAL EXAMINATION VITAL SIGNS: Per chart, stable. GENERAL APPEARANCE: Pleasant, in no acute distress. HEENT: Sclerae anicteric. SKIN: No rash, no jaundice. EXTREMITIES: Legs - no edema. NEUROLOGIC: She is alert and oriented. LABORATORY DATA Her chemistry panel is unremarkable. Creatinine at 0.7, magnesium 1.4, potassium 4.0. UA on 09/29/2017 was negative for nitrite or leukocyte esterase. Urine culture showed no growth on 09/27/2017. ASSESSMENT AND PLAN 1. Metastatic small cell lung carcinoma. She is status post cycle 1 IV topotecan. She is due to start cycle 2 treatment in 2 weeks. 2. Severe nausea and vomiting secondary to chemotherapy. She has felt better since she came into the hospital. We will plan to add oral dexamethasone for 3 more days after the next cycle of chemo. She will also benefit from IV Emend on day 5. 3. Follow up in a week after she is discharged from the hospital. 4. Pancytopenia secondary to chemotherapy. No transfusion is needed. She is afebrile. She does not need G-CSF. cc: Uche Steele DO TD: 10/01/2017 17:23 MTDAdair
[2017-10-01] MEDS: ATORVASTATIN 10 MG TABLET PO SCH (21:06)
[2017-10-02] MEDS: HYDROmorphone 2 MG/ML VIAL IVP PRN ×6 (00:07→20:13)
[2017-10-02] MEDS: ONDANSETRON 4 MG/2 ML VIAL IVP PRN ×2 (00:13→07:59)
[2017-10-02] MEDS: NS W/20 MEQ KCL 1,000 ML IV SCH ×2 (01:35→23:31)
[2017-10-02] MEDS: SODIUM CHLORIDE FLUSH 0.9% 10 ML SYRINGE IVP SCH ×3 (04:32→16:33)
[2017-10-02] MEDS: SODIUM CHLORIDE FLUSH 0.9% 10 ML SYRINGE IVP PRN ×6 (06:08→14:21)
[2017-10-02] MEDS: oxyCODONE 5 MG TABLET PO PRN ×4 (06:32→23:36)
[2017-10-02 06:35] LABS: EOSINOPHILS % (AUTO) 1.2 %; HGB - HEMOGLOBIN 8.8 g/dL (12.0-16.0); MEAN CORPUSCULAR HEMOGLOBIN 32.9 pg (27.0-31.0); MEAN CORPUSCULAR HGB CONC 33.9 g/dL (32.0-36.0); MEAN CORPUSCULAR VOLUME 97.1 fL (81.0-99.0); MONOCYTES % (AUTO) 0.9 %; NEUTROPHILS % (AUTO) 1.9 %; PLT - PLATELET COUNT 122 10^3/uL (130-450); RED BLOOD COUNT 2.67 10^6/uL (4.20-5.40); RED CELL DISTRIBUTION WIDTH 13.7 % (12.0-15.0)
[2017-10-02 06:44] LABS: ALBUMIN 2.8 g/dL (3.2-5.5); ALBUMIN/GLOBULIN RATIO 0.7 (1.0-2.2); BILIRUBIN,TOTAL 0.5 mg/dL (0.2-1.0); CALCIUM 8.4 mg/dL (8.5-10.3); CREATININE 0.7 mg/dL (0.4-1.0); MAGNESIUM 1.8 mg/dL (1.7-2.8); PHOSPHORUS 2.7 mg/dL (2.5-4.6); TOTAL PROTEIN 6.6 g/dL (6.7-8.2); WHITE BLOOD COUNT 0.5 x10^3/uL (4.8-10.8)
[2017-10-02 06:46] LABS: ABNORMAL LYMPHS % (MANUAL) 0 %; BAND NEUTROPHILS % (MANUAL) 0 %
[2017-10-02 07:17] LABS: DIFFERENTIAL COMMENT MANUAL DIFFERENTIAL; LYMPHOCYTES # (MANUAL) 0.5 10^3/uL (1.5-3.5); LYMPHOCYTES % (MANUAL) 92 %; NEUTROPHILS % (MANUAL) 6 %; PLATELET ESTIMATE, MANUAL DECREASED (<130,000) (NORMAL); RBC MORPHOLOGY (MULTIPLE) NORMAL APPEARANCE (NORMAL)
[2017-10-02] MEDS: FORMOTEROL FUMARATE NEB 20 MCG/2 ML INH SCH (07:45)
[2017-10-02] MEDS: BUDESONIDE 0.5 MG/2 ML NEB INH SCH (07:45)
[2017-10-02] MEDS: FAMOTIDINE 20 MG TABLET PO SCH (07:56)
[2017-10-02] MEDS: NEUTRA-PHOS 250 MG TABLET PO SCH ×3 (07:57→16:29)
[2017-10-02] MEDS: ENOXAPARIN 40 MG/0.4 ML SYRINGE SUBQ SCH (07:57)
[2017-10-02] MEDS: DOCUSATE SODIUM 250 MG CAPSULE PO SCH (07:57)
[2017-10-02] MEDS: NICOTINE 21 MG PATCH TOP SCH (07:57)
[2017-10-02] MEDS: SENNA 8.6 MG TABLET PO SCH (07:58)
[2017-10-02] MEDS: POLYETHYLENE GLYCOL 3350 17 GM PACKET PO SCH (07:58)
--- NOTE | 2017-10-02 08:26 | PROVIDER PROGRESS NOTE ---
Assessment/Plan - Problem List (1) Leukopenia due to antineoplastic chemotherapy Assessment/Plan: Further drip in total WBC today. Appreciate Dr Li's Oncol Note. Monitor CBC daily. Continue neutropenic precautions. (2) Intractable nausea and vomiting Qualifiers: Vomiting type: unspecified Qualified Code(s): R11.2 - Nausea with vomiting , unspecified Assessment/Plan: Resolved. (3) Dehydration Assessment/Plan: Continue gentle hydration. (4) Metastatic non-small cell lung cancer Assessment/Plan: As in #1. (5) Neutropenic fever Assessment/Plan: WBC dropped further. Temp of 37.7 this am. Will request consult from Arlyn Hernandez, CERTIFIED ORTHOTIST PRACTICE MANAGER Will fully culture and start empiric broad spectrum antibiotics per neutropenic fever protocol. - Current Meds Current Meds: Current Medications Generic Name Dose Route Start Last Admin Trade Name Freq PRN Reason Stop Dose Admin Atorvastatin Calcium 10 mg 09/29/17 21:00 10/01/17 21:06 Lipitor PO 10 mg QPM JATIN Administration Budesonide 0.5 mg 09/29/17 15:00 10/02/17 07:45 Pulmicort INH Not Given RTBID JATIN Docusate Sodium 250 - 500 mg 10/01/17 09:00 10/02/17 07:57 Colace 250mg Capsule PO Not Given DAILY JATIN Enoxaparin Sodium 40 mg 09/30/17 09:00 10/02/17 07:57 Lovenox SUBQ Not Given DAILY JATIN Famotidine 20 mg 09/30/17 09:00 10/02/17 07:56 Pepcid PO 20 mg DAILY JATIN Administration Formoterol Fumarate 20 mcg 09/29/17 15:00 10/02/17 07:45 Perforomist INH Not Given RTBID JATIN Hydromorphone HCl 2 mg 09/29/17 16:53 10/02/17 07:58 Dilaudid (Vial) IVP 2 mg Q2HR PRN Administration Pain 8 to 10 Potassium Chloride/Sodium Chloride 1,000 mls @ 60 mls/hr 10/01/17 11:06 10/02 06:45 Normal Saline 0.9% W/20 Meq Kcl IV 60 mls/hr .[id number] JATIN Infusion Nicotine 1 patch 09/29/17 17:00 10/02/17 07:57 Nicoderm TOP 1 patch DAILY JATIN Administration Ondansetron HCl 4 mg 09/29/17 14:10 10/02/17 07:59 Zofran Inj IVP 4 mg Q6HR PRN Administration Nausea / Vomiting Oxycodone HCl 5 mg 09/29/17 14:10 10/02/17 06:32 Roxicodone PO 5 mg Q4HR PRN Administration Pain 5 to 7 Oxycodone HCl 10 mg 09/29/17 14:10 10/01/17 21:06 Roxicodone PO 10 mg Q4HR PRN Administration Pain 8 to 10 Polyethylene Glycol 17 gm 09/30/17 09:00 10/02/17 07:58 Miralax PO 17 gm DAILY JATIN Administration Prochlorperazine Edisylate 10 mg 09/29/17 14:10 09/30/17 06:16 Compazine Inj IVP 10 mg Q6HR PRN Administration Nausea / Vomiting Senna 8.6 - 17.2 mg 10/01/17 09:00 10/02/17 07:58 Senokot PO Not Given DAILY JATIN Sodium Chloride 10 ml 09/29/17 14:10 10/02/17 07:58 Normal Saline Flush 0.9% IVP 20 ml PRN PRN Administration NEEDED PER PROVIDER ORDERS Sodium Chloride 10 ml 09/29/17 17:00 10/02/17 07:58 Normal Saline Flush 0.9% IVP 10 ml 0100,0900,1700 JATIN Administration Sodium Chloride 20 ml 09/30/17 05:13 10/02/17 06:08 Normal Saline Flush 0.9% IVP 20 ml PRN PRN Administration After Blood Draw Sodium Phosphate 250 mg 10/01/17 12:00 10/02/17 07:57 K-Phos Neutral PO 10/02/17 23:00 250 mg TIDWM JATIN Administration - Lab Result Fish Bone Diagrams: 10/02/17 06:10 10/02/17 06:10 - Additional Planning My Orders: My Active Orders 10/01/17 11:05 IS [Incentive Spirometry - RT] [RC] .TID 10/01/17 11:06 Ns W/20 Meq KCl [Normal Saline 0.9% W/20 Meq KCl] 1,000 ml IV 60 mls/hr 10/01/17 12:00 Neutra-Phos [K-Phos Neutral] 250 mg PO TIDWM 10/01/17 Lunch Neutropenic (Low Microbial) Diet [DIET] 10/02/17 Consult [Oncology Consult] [CONS] Routine Subjective - Subjective Patient Reports: Feeling Better, Resting Comfortably Nursing Reports: Other (Fever of 37.7 C this am.) Objective Vital Signs: Vital Signs - 24 hr 10/01/17 10/01/17 10/01/17 15:30 23:32 23:50 Temperature 36.5 C 36.6 C Heart Rate 82 Heart Rate [ 82 98 Brachial] Respiratory 20 20 16 Rate Blood Pressure 112/67 108/69 [Right Brachial artery] O2 Saturation 93 94 10/02/17 10/02/17 07:45 08:01 Temperature 37.7 C H Heart Rate 87 Heart Rate [ 87 Brachial] Respiratory 16 20 Rate Blood Pressure 121/79 [Right Brachial artery] O2 Saturation 95 Oxygen O2 Source Room air I&O (Last 24 Hrs): Intake and Output Totals x24h 09/30/17 10/01/17 10/02/17 23:59 23:59 23:59 Intake Total 2043.333 2396.667 1410 Output Total 2300 2550 625 Balance -256.667 -153.333 785 General: Alert, Oriented x3 HEENT: Mucous membr. moist/pink Neck: Supple, No JVD Neuro: Non Focal Cardiovascular: Regular rate, No murmurs Respiratory: No respiratory distress, Other (Scattered rhonchi and wet cough) Abdomen: Normal bowel sounds, No tenderness Extremities: No edema - Results Results: Laboratory Results WBC 0.5 x10^3/uL (4.8-10.8) L* 10/02/17 06:10 RBC 2.67 10^6/uL (4.20-5.40) L 10/02/17 06:10 Hgb 8.8 g/dL (12.0-16.0) L 10/02/17 06:10 Hct 25.9 % (37.0-47.0) L 10/02/17 06:10 MCV 97.1 fL (81.0-99.0) 10/02/17 06:10 MCH 32.9 pg (27.0-31.0) H 10/02/17 06:10 MCHC 33.9 g/dL (32.0-36.0) 10/02/17 06:10 RDW 13.7 % (12.0-15.0) 10/02/17 06:10 Plt Count 122 10^3/uL (130-450) L 10/02/17 06:10 MPV 7.0 fL (7.9-10.8) L 10/02/17 06:10 Neut # (Auto) Not Reportable 10/02/17 06:10 Lymph # (Auto) Not Reportable 10/02/17 06:10 [place] # (Auto) Not Reportable 10/02/17 06:10 Eos # (Auto) Not Reportable 10/02/17 06:10 Baso # (Auto) Not Reportable 10/02/17 06:10 Absolute Nucleated RBC Not Reportable 10/02/17 06:10 Total Counted 50 10/02/17 06:10 Band Neuts % (Manual) 0 % (0-10) 10/02/17 06:10 Reactive Lymphs % (Man) 8 % 10/01/17 05:45 Abnorm Lymph % (Manual) 0 % 10/02/17 06:10 Nucleated RBC % Not Reportable 10/02/17 06:10 Neutrophils # (Manual) 0.0 10^3/uL (1.5-6.6) L* 10/02/17 06:10 Lymphocytes # (Manual) 0.5 10^3/uL (1.5-3.5) L 10/02/17 06:10 Monocytes # (Manual) 0.0 10^3/uL (0.0-1.0) 10/02/17 06:10 Eosinophils # (Manual) 0.0 10^3/uL (0-0.7) 10/02/17 06:10 Basophils # (Manual) 0.0 10^3/uL (0-0.1) 10/02/17 06:10 Differential Comment MANUAL DIFFERENTIAL 10/02/17 06:10 Manual Slide Review Indicated 09/30/17 06:07 WBC Morphology NORMAL APPEARANCE (NORMAL) 09/30/17 06:07 Platelet Estimate DECREASED (<130,000) (NORMAL) 10/02/17 06:10 Platelet Morphology NORMAL APPEARANCE (NORMAL) 10/01/17 05:45 RBC Morph Micro Appear NORMAL APPEARANCE (NORMAL) 10/02/17 06:10 PT 11.9 secs (9.9-12.6) 09/30/17 06:07 INR 1.1 (0.8-1.2) 09/30/17 06:07 Sodium 135 mmol/L (135-145) 10/02/17 06:10 Potassium 4.1 mmol/L (3.5-5.0) 10/02/17 06:10 Chloride 107 mmol/L (101-111) 10/02/17 06:10 Carbon Dioxide 24 mmol/L (21-32) 10/02/17 06:10 Anion Gap 4.0 (6-13) L 10/02/17 06:10 BUN 15 mg/dL (6-20) 10/02/17 06:10 Creatinine 0.7 mg/dL (0.4-1.0) 10/02/17 06:10 Estimated GFR (MDRD) 84 (>89) L 10/02/17 06:10 Glucose 86 mg/dL (70-100) 10/02/17 06:10 Lactic Acid 0.6 mmol/L (0.5-2.2) 09/30/17 06:07 Calcium 8.4 mg/dL (8.5-10.3) L 10/02/17 06:10 Phosphorus 2.7 mg/dL (2.5-4.6) 10/02/17 06:10 Magnesium 1.8 mg/dL (1.7-2.8) 10/02/17 06:10 Total Bilirubin 0.5 mg/dL (0.2-1.0) 10/02/17 06:10 AST 32 IU/L (10-42) 10/02/17 06:10 ALT 34 IU/L (10-60) 10/02/17 06:10 Alkaline Phosphatase 61 IU/L (42-121) 10/02/17 06:10 Troponin I < 0.04 ng/mL (<0.49) 09/29/17 11:10 Total Protein 6.6 g/dL (6.7-8.2) L 10/02/17 06:10 Albumin 2.8 g/dL (3.2-5.5) L 10/02/17 06:10 Globulin 3.8 g/dL (2.1-4.2) 10/02/17 06:10 Albumin/Globulin Ratio 0.7 (1.0-2.2) L 10/02/17 06:10 Lipase 38 U/L (22-51) 09/29/17 11:10 Urine Color YELLOW 09/29/17 12:25 Urine Clarity CLEAR (CLEAR) 09/29/17 12:25 Urine pH 7.0 PH (5.0-7.5) 09/29/17 12:25 Ur Specific [place] 1.015 (1.002-1.030) 09/29/17 12:25 Urine Protein NEGATIVE mg/dL (NEGATIVE) 09/29/17 12:25 Urine Glucose (UA) NEGATIVE mg/dL (NEGATIVE) 09/29/17 12:25 Urine Ketones NEGATIVE mg/dL (NEGATIVE) 09/29/17 12:25 Urine Occult Blood TRACE-INTA (NEGATIVE) 09/29/17 12:25 Urine Nitrite NEGATIVE (NEGATIVE) 09/29/17 12:25 Urine Bilirubin NEGATIVE (NEGATIVE) 09/29/17 12:25 Urine Urobilinogen 0.2 (NORMAL) E.U./dL (NORMAL) 09/29/17 12:25 Ur Leukocyte Esterase NEGATIVE (NEGATIVE) 09/29/17 12:25 Ur Microscopic Review NOT INDICATED 09/29/17 12:25 Urine Culture Comments NOT INDICATED 09/29/17 12:25 - Procedures Procedures: Procedures INSERT INFUSION DEV IN L INT JUGULAR VEIN, PERC (12/31/16) INSERT VAD RESERVOIR IN CHEST SUBCU/FASCIA, OPEN (12/31/16)
--- NOTE | 2017-10-02 09:02 | XRAY Report ---
Procedure Date: 10/02/2017 Accession Number: [id number] / [id number] Procedure: XR - Chest 1 View X-Ray CPT Code: 50414 FULL RESULT: EXAM: CHEST RADIOGRAPHY EXAM DATE: 10/02/2017 08:46 AM. CLINICAL HISTORY: Neutropenic fever, evaluate for infiltrate. COMPARISON: CHEST 2 VIEW 09/29/2017. TECHNIQUE: 1 view. FINDINGS: Support apparatus: There is a left IJ implanted central venous catheter with tip in the middle third of the SVC, similar to prior. Lungs/Pleura: There is similar appearance of diffuse bilateral coarse interstitial opacities. There is increased patchy opacity at the left lung base. Lung volumes are slightly lower compared to the prior exam. No pleural effusion or pneumothorax. Mediastinum: Within exam limitations, the cardiomediastinal contour is normal. Other: Thoracic spine fusion hardware is present, similar to the prior exam. No acute osseous abnormality. IMPRESSION: Increased mild patchy atelectasis or infiltrate at the left lung base. There is similar appearance of diffuse bilateral coarse interstitial opacities. RADIA
[2017-10-02] MEDS ORDERED: VANCOMYCIN PER PHARMACY 100 GM in SODIUM CHLORIDE 0.9% 250 ML IV SCH (12:00)
[2017-10-02] MEDS ORDERED: cefTAZidime 1 GM in SODIUM CHLORIDE 0.9% MINIBAG 100 ML IV SCH (12:00)
[2017-10-02] MEDS: SACCHAROMYCES BOULARDII 250 MG CAPSULE PO SCH ×2 (12:15→16:29)
[2017-10-02] MEDS ORDERED: metroNIDAZOLE 500 MG/100 ML 250 MG/50 ML BAG IV SCH (13:00)
[2017-10-02] MEDS: VANCOMYCIN INJ 1 GM in SODIUM CHLORIDE 0.9% 250 ML IV SCH (14:26)
[2017-10-02] MEDS: PROCHLORPERAZINE 10 MG/2 ML VIAL IVP PRN (16:30)
[2017-10-02] MEDS: LOPERAMIDE 2 MG CAPSULE PO PRN (18:18)
[2017-10-02] MEDS: metroNIDAZOLE 500 MG/100 ML 250 MG/50 ML BAG IV SCH (20:14)
[2017-10-02] MEDS: ATORVASTATIN 10 MG TABLET PO SCH (20:14)
[2017-10-03] MEDS: SODIUM CHLORIDE FLUSH 0.9% 10 ML SYRINGE IVP SCH ×3 (00:33→16:07)
[2017-10-03] MEDS: HYDROmorphone 2 MG/ML VIAL IVP PRN ×5 (02:57→20:50)
[2017-10-03] MEDS: metroNIDAZOLE 500 MG/100 ML 250 MG/50 ML BAG IV SCH (05:00)
[2017-10-03] MEDS: SODIUM CHLORIDE FLUSH 0.9% 10 ML SYRINGE IVP PRN ×5 (05:01→20:50)
[2017-10-03 05:41] LABS: EOSINOPHILS % (AUTO) 1.5 %; HGB - HEMOGLOBIN 8.5 g/dL (12.0-16.0); LYMPHOCYTES % (AUTO) 87.7 %; MEAN CORPUSCULAR HEMOGLOBIN 33.6 pg (27.0-31.0); MEAN CORPUSCULAR HGB CONC 34.6 g/dL (32.0-36.0); MEAN PLATELET VOLUME 7.2 fL (7.9-10.8); MONOCYTES % (AUTO) 5.5 %; NEUTROPHILS % (AUTO) 5.3 %; PLT - PLATELET COUNT 86 10^3/uL (130-450); RED BLOOD COUNT 2.53 10^6/uL (4.20-5.40); RED CELL DISTRIBUTION WIDTH 13.6 % (12.0-15.0)
[2017-10-03 05:49] LABS: ALBUMIN 2.9 g/dL (3.2-5.5); ALBUMIN/GLOBULIN RATIO 0.8 (1.0-2.2); BILIRUBIN,TOTAL 0.7 mg/dL (0.2-1.0); CALCIUM 8.3 mg/dL (8.5-10.3); CREATININE 0.6 mg/dL (0.4-1.0); MAGNESIUM 1.2 mg/dL (1.7-2.8); PHOSPHORUS 2.5 mg/dL (2.5-4.6); TOTAL PROTEIN 6.6 g/dL (6.7-8.2)
[2017-10-03 05:59] LABS: WHITE BLOOD COUNT 0.3 x10^3/uL (4.8-10.8)
[2017-10-03 06:00] LABS: ABNORMAL LYMPHS % (MANUAL) 0 %; BAND NEUTROPHILS % (MANUAL) 0 %
[2017-10-03] MEDS: oxyCODONE 5 MG TABLET PO PRN ×3 (06:01→20:51)
[2017-10-03 06:20] LABS: BASOPHILS % (MANUAL) 2 %; LYMPHOCYTES # (MANUAL) 0.3 10^3/uL (1.5-3.5); LYMPHOCYTES % (MANUAL) 90 %; NEUTROPHILS % (MANUAL) 4 %
[2017-10-03 06:21] LABS: DIFFERENTIAL COMMENT MANUAL DIFFERENTIAL; PLATELET ESTIMATE, MANUAL DECREASED (<130,000) (NORMAL); RBC MORPHOLOGY (MULTIPLE) NORMAL APPEARANCE (NORMAL)
[2017-10-03] MEDS: FAMOTIDINE 20 MG TABLET PO SCH (08:05)
[2017-10-03] MEDS: SACCHAROMYCES BOULARDII 250 MG CAPSULE PO SCH ×2 (08:05→16:06)
[2017-10-03] MEDS: NICOTINE 21 MG PATCH TOP SCH (08:06)
--- NOTE | 2017-10-03 08:06 | PROVIDER PROGRESS NOTE ---
Assessment/Plan - Problem List (1) HCAP (healthcare-associated pneumonia) Assessment/Plan: Left base infiltrate seen on the day she developed neutropenic fever. Sputum culture has WBC and bacteria but no growth yet to ID the organism. Continue empiric antibiotics. (2) COPD (chronic obstructive pulmonary disease) Qualifiers: COPD type: emphysema Emphysema type: unspecified Qualified Code(s): J43.9 - Emphysema, unspecified Assessment/Plan: This is her chronic cough without SOB, does not appear to be an exacerbation of COPD. Continue nebs and Nicotine patch. (3) Leukopenia due to antineoplastic chemotherapy Assessment/Plan: Further drop in WBC. Continue neutropenic precautions and daily monitoring of CBC. (4) Neutropenic fever Assessment/Plan: Drop of WBC to 0.3 today and ANC 0. Pt remains on 3 empiric iv antibiotics, oral edward are covered. No positive cultures as of yet. (5) Dehydration Assessment/Plan: Continue gentle hydration, as she does not like the diet here. (6) Hypomagnesemia Assessment/Plan: Likely related to poor po intake. Will replace Mg. Monitor Mg daily. (7) Metastatic non-small cell lung cancer Assessment/Plan: As in #1. Pt wants aggressive care, but is a DNR. She was told she has a 1 year prognosis. I offered her a Palliative Care consult which she declined at this time. (8) Pharyngitis Assessment/Plan: No abnormality of throat visually, but tender to palpation. Will offer Chloraseptic spray. Monitor daily. (9) Diarrhea Assessment/Plan: C. diff was neg. Other cultures are neg or pending. Abdominal exam is benign and she is tolerating solid food. Will increase Florastor dose and give Imodium prn. Also, will start Octreotide for chemo-induced diarrhea. (10) Intractable nausea and vomiting Qualifiers: Vomiting type: unspecified Qualified Code(s): R11.2 - Nausea with vomiting , unspecified Assessment/Plan: Resolved - Current Meds Current Meds: Current Medications Generic Name Dose Route Start Last Admin Trade Name Freq PRN Reason Stop Dose Admin Atorvastatin Calcium 10 mg 09/29/17 21:00 10/02/17 20:14 Lipitor PO 10 mg QPM JATIN Administration Budesonide 0.5 mg 09/29/17 15:00 10/02/17 07:45 Pulmicort INH Not Given RTBID [facility] Docusate Sodium 250 - 500 mg 10/01/17 09:00 10/02/17 07:57 Colace 250mg Capsule PO Not Given DAILY [facility] Enoxaparin Sodium 40 mg 09/30/17 09:00 10/02/17 07:57 Lovenox SUBQ Not Given DAILY [facility] Famotidine 20 mg 09/30/17 09:00 10/02/17 07:56 Pepcid PO 20 mg DAILY [facility] Administration Formoterol Fumarate 20 mcg 09/29/17 15:00 10/02/17 07:45 Perforomist INH Not Given RTBID [facility] Hydromorphone HCl 2 mg 09/29/17 16:53 10/03/17 02:57 Dilaudid (Vial) IVP 2 mg Q2HR PRN Administration Pain 8 to 10 Potassium Chloride/Sodium Chloride 1,000 mls @ 60 mls/hr 10/01/17 11:06 10/03 05:34 Normal Saline 0.9% W/20 Meq Kcl IV 60 mls/hr .[id number] JATIN Infusion Vancomycin HCl 1 gm/ Sodium 250 mls @ 167 mls/hr 10/02/17 14:00 10/02/17 16: 56 Chloride IV Infused Q24H JATIN Infusion Metronidazole 250 mg in 50 mls @ 100 mls/hr 10/02/17 21:00 10/03/17 05:34 Flagyl 500 Mg/100 Ml IV Infused Q8H JATIN Infusion Loperamide HCl 2 mg 10/02/17 18:12 10/02/17 18:18 Imodium PO 2 mg QID PRN Administration Diarrhea Nicotine 1 patch 09/29/17 17:00 10/02/17 07:57 Nicoderm TOP 1 patch DAILY [facility] Administration Ondansetron HCl 4 mg 09/29/17 14:10 10/02/17 07:59 Zofran Inj IVP 4 mg Q6HR PRN Administration Nausea / Vomiting Oxycodone HCl 5 mg 09/29/17 14:10 10/02/17 13:10 Roxicodone PO 5 mg Q4HR PRN Administration Pain 5 to 7 Oxycodone HCl 10 mg 09/29/17 14:10 10/03/17 06:01 Roxicodone PO 10 mg Q4HR PRN Administration Pain 8 to 10 Polyethylene Glycol 17 gm 09/30/17 09:00 10/02/17 07:58 Miralax PO 17 gm DAILY JATIN Administration Prochlorperazine Edisylate 10 mg 09/29/17 14:10 10/02/17 16:30 Compazine Inj IVP 10 mg Q6HR PRN Administration Nausea / Vomiting Saccharomyces Boulardii 250 mg 10/02/17 12:00 10/02/17 16:29 Florastor PO 250 mg BIDWM JATIN Administration Senna 8.6 - 17.2 mg 10/01/17 09:00 10/02/17 07:58 Senokot PO Not Given DAILY JATIN Sodium Chloride 10 ml 09/29/17 14:10 10/03/17 05:01 Normal Saline Flush 0.9% IVP 10 ml PRN PRN Administration NEEDED PER PROVIDER ORDERS Sodium Chloride 10 ml 09/29/17 17:00 10/03/17 00:33 Normal Saline Flush 0.9% IVP Not Given 0100,0900,1700 JATIN Sodium Chloride 20 ml 09/30/17 05:13 10/03/17 05:02 Normal Saline Flush 0.9% IVP 20 ml PRN PRN Administration After Blood Draw - Lab Result Fish Bone Diagrams: 10/03/17 04:55 10/03/17 04:55 - Additional Planning My Orders: My Active Orders 10/02/17 08:48 CULTURE, BLOOD #1 [RM] Stat 10/02/17 08:54 CULTURE, BLOOD #2 [RM] Stat 10/02/17 11:12 Vital Signs [RC] Q2HX2,Q4H 10/02/17 12:00 Saccharomyces Boulardii [Florastor] 250 mg PO BIDWM 10/02/17 14:00 Vancomycin Inj [Vancomycin] 1 gm Sodium Chloride 0.9% [Normal Saline 0.9%] 250 ml IV Q24H 10/02/17 18:12 Loperamide [Imodium] 2 mg PO QID PRN 10/02/17 21:00 metroNIDAZOLE 500 MG/100 ML [Flagyl 500 mg/100 ml] 250 mg in 50 ml IV Q8H 10/02/17 23:39 CUL, STOOL [CULTURE, STOOL] [RM] Urgent 10/03/17 05:37 CUL, URINE [RM] Urgent Subjective - Subjective Patient Reports: Pain, Other (Back pain is worse, only helps to lie flat. L throat pain when swallowing. Nebs were refused due to back pain with inspiration , coughing or deep beathing.) Nursing Reports: Other (Refused incentive spirometry and nebs yesterday and today, due to back pain. Diarrhea started yesterday.) Objective Vital Signs: Vital Signs - 24 hr 10/02/17 10/02/17 10/02/17 08:57 11:12 13:12 Temperature 36.8 C 36.8 C 37 C Heart Rate [ 84 88 Brachial] Respiratory 16 16 Rate Blood Pressure 100/77 116/79 [Right Brachial artery] O2 Saturation 93 93 10/02/17 10/02/17 10/02/17 15:53 19:55 23:49 Temperature 36.9 C 36.8 C 37 C Heart Rate [ 93 90 101 H Brachial] Respiratory 16 24 20 Rate Blood Pressure 114/71 129/85 H 138/84 H [Right Brachial artery] O2 Saturation 98 91 L 96 10/03/17 10/03/17 04:44 07:55 Temperature 37.4 C 37.1 C Heart Rate [ 102 H 108 H Brachial] Respiratory 18 18 Rate Blood Pressure 111/82 H 125/84 H [Right Brachial artery] O2 Saturation 92 94 Oxygen O2 Source Room air I&O (Last 24 Hrs): Intake and Output Totals x24h 10/01/17 10/02/17 10/03/17 23:59 23:59 23:59 Intake Total 2396.667 3238 380 Output Total 2550 1975 Balance -737.489 1290 380 General: Alert, Oriented x3 HEENT: Mucous membr. moist/pink, Other (No throat erythema or white coating. No tonsills present. No palpable mass near throat.) Neck: No JVD, Other (No palpable adenopathy. There is tenderness when L neck is palpated, under the mandible.) Neuro: Non Focal Cardiovascular: Regular rate, No murmurs Respiratory: Rales, Other (Bilaeral course rales at bases, no wheezing or stridor.) Abdomen: Normal bowel sounds, Soft Extremities: No edema - Results Results: Laboratory Results WBC 0.3 x10^3/uL (4.8-10.8) L* 10/03/17 04:55 RBC 2.53 10^6/uL (4.20-5.40) L 10/03/17 04:55 Hgb 8.5 g/dL (12.0-16.0) L 10/03/17 04:55 Hct 24.5 % (37.0-47.0) L 10/03/17 04:55 MCV 97.0 fL (81.0-99.0) 10/03/17 04:55 MCH 33.6 pg (27.0-31.0) H 10/03/17 04:55 MCHC 34.6 g/dL (32.0-36.0) 10/03/17 04:55 RDW 13.6 % (12.0-15.0) 10/03/17 04:55 Plt Count 86 10^3/uL (130-450) L 10/03/17 04:55 MPV 7.2 fL (7.9-10.8) L 10/03/17 04:55 Neut # (Auto) Not Reportable 10/03/17 04:55 Lymph # (Auto) Not Reportable 10/03/17 04:55 [place] # (Auto) Not Reportable 10/03/17 04:55 Eos # (Auto) Not Reportable 10/03/17 04:55 Baso # (Auto) Not Reportable 10/03/17 04:55 Absolute Nucleated RBC Not Reportable 10/03/17 04:55 Total Counted 50 10/03/17 04:55 Band Neuts % (Manual) 0 % (0-10) 10/03/17 04:55 Reactive Lymphs % (Man) 8 % 10/01/17 05:45 Abnorm Lymph % (Manual) 0 % 10/03/17 04:55 Nucleated RBC % Not Reportable 10/03/17 04:55 Neutrophils # (Manual) 0.0 10^3/uL (1.5-6.6) L* 10/03/17 04:55 Lymphocytes # (Manual) 0.3 10^3/uL (1.5-3.5) L 10/03/17 04:55 Monocytes # (Manual) 0.0 10^3/uL (0.0-1.0) 10/03/17 04:55 Eosinophils # (Manual) 0.0 10^3/uL (0-0.7) 10/03/17 04:55 Basophils # (Manual) 0.0 10^3/uL (0-0.1) 10/03/17 04:55 Differential Comment MANUAL DIFFERENTIAL 10/03/17 04:55 Manual Slide Review Indicated 09/30/17 06:07 WBC Morphology NORMAL APPEARANCE (NORMAL) 09/30/17 06:07 Platelet Estimate DECREASED (<130,000) (NORMAL) 10/03/17 04:55 Platelet Morphology NORMAL APPEARANCE (NORMAL) 10/01/17 05:45 RBC Morph Micro Appear NORMAL APPEARANCE (NORMAL) 10/03/17 04:55 PT 11.9 secs (9.9-12.6) 09/30/17 06:07 INR 1.1 (0.8-1.2) 09/30/17 06:07 Sodium 135 mmol/L (135-145) 10/03/17 04:55 Potassium 3.6 mmol/L (3.5-5.0) 10/03/17 04:55 Chloride 106 mmol/L (101-111) 10/03/17 04:55 Carbon Dioxide 22 mmol/L (21-32) 10/03/17 04:55 Anion Gap 7.0 (6-13) 10/03/17 04:55 BUN 13 mg/dL (6-20) 10/03/17 04:55 Creatinine 0.6 mg/dL (0.4-1.0) 10/03/17 04:55 Estimated GFR (MDRD) 100 (>89) 10/03/17 04:55 Glucose 108 mg/dL (70-100) H 10/03/17 04:55 Lactic Acid 0.6 mmol/L (0.5-2.2) 09/30/17 06:07 Calcium 8.3 mg/dL (8.5-10.3) L 10/03/17 04:55 Phosphorus 2.5 mg/dL (2.5-4.6) 10/03/17 04:55 Magnesium 1.2 mg/dL (1.7-2.8) L 10/03/17 04:55 Total Bilirubin 0.7 mg/dL (0.2-1.0) 10/03/17 04:55 AST 21 IU/L (10-42) 10/03/17 04:55 ALT 23 IU/L (10-60) 10/03/17 04:55 Alkaline Phosphatase 71 IU/L (42-121) 10/03/17 04:55 Troponin I < 0.04 ng/mL (<0.49) 09/29/17 11:10 Total Protein 6.6 g/dL (6.7-8.2) L 10/03/17 04:55 Albumin 2.9 g/dL (3.2-5.5) L 10/03/17 04:55 Globulin 3.7 g/dL (2.1-4.2) 10/03/17 04:55 Albumin/Globulin Ratio 0.8 (1.0-2.2) L 10/03/17 04:55 Lipase 38 U/L (22-51) 09/29/17 11:10 Urine Color YELLOW 09/29/17 12:25 Urine Clarity CLEAR (CLEAR) 09/29/17 12:25 Urine pH 7.0 PH (5.0-7.5) 09/29/17 12:25 Ur Specific [place] 1.015 (1.002-1.030) 09/29/17 12:25 Urine Protein NEGATIVE mg/dL (NEGATIVE) 09/29/17 12:25 Urine Glucose (UA) NEGATIVE mg/dL (NEGATIVE) 09/29/17 12:25 Urine Ketones NEGATIVE mg/dL (NEGATIVE) 09/29/17 12:25 Urine Occult Blood TRACE-INTA (NEGATIVE) 09/29/17 12:25 Urine Nitrite NEGATIVE (NEGATIVE) 09/29/17 12:25 Urine Bilirubin NEGATIVE (NEGATIVE) 09/29/17 12:25 Urine Urobilinogen 0.2 (NORMAL) E.U./dL (NORMAL) 09/29/17 12:25 Ur Leukocyte Esterase NEGATIVE (NEGATIVE) 09/29/17 12:25 Ur Microscopic Review NOT INDICATED 09/29/17 12:25 Urine Culture Comments NOT INDICATED 09/29/17 12:25 - Procedures Procedures: Procedures INSERT INFUSION DEV IN L INT JUGULAR VEIN, PERC (12/31/16) INSERT VAD RESERVOIR IN CHEST SUBCU/FASCIA, OPEN (12/31/16)
[2017-10-03] MEDS ORDERED: MAGNESIUM SULFATE 2 GRAM 2 GM/50 ML BAG IV ONE ×3 (08:08→10:10)
[2017-10-03] MEDS: MAGNESIUM SULFATE 2 GRAM 2 GM/50 ML BAG IV SCH ×3 (08:36→10:55)
[2017-10-03] MEDS: MAGNESIUM OXIDE 400 MG TABLET PO SCH (08:36)
[2017-10-03] MEDS: BUDESONIDE 0.5 MG/2 ML NEB INH SCH ×2 (08:48→08:49)
[2017-10-03] MEDS: FORMOTEROL FUMARATE NEB 20 MCG/2 ML INH SCH ×2 (08:48→08:49)
[2017-10-03] MEDS: DOCUSATE SODIUM 250 MG CAPSULE PO SCH (09:44)
[2017-10-03] MEDS: ENOXAPARIN 40 MG/0.4 ML SYRINGE SUBQ SCH (09:44)
[2017-10-03] MEDS: POLYETHYLENE GLYCOL 3350 17 GM PACKET PO SCH (09:44)
[2017-10-03] MEDS: SENNA 8.6 MG TABLET PO SCH (09:45)
[2017-10-03] MEDS: metroNIDAZOLE 500 MG/100 ML 500 MG/100 ML BAG IV SCH ×2 (12:46→20:51)
[2017-10-03] MEDS: VANCOMYCIN INJ 1 GM in SODIUM CHLORIDE 0.9% 250 ML IV SCH (13:34)
--- NOTE | 2017-10-03 14:18 | ADVANCE CARE PLANNING NOTE ---
Advance Care Planning - Date/Time Date: 10/03/17 Time: 12:15 - Purpose of encounter Text: To establish her goals, discuss life expectancy and needs - Parties in attendance Parties in attendance: I spoke to the patient, sitting up in her bed. - Decisional capacity Decisional capacity of: Patient has full cognitive function and decision making ability. - Subjective/Patient's story Subjective/Patient's story: The patient lives alone, is , has 1 child who lives in [place]. She was a heavy smoker, knows she has COPD. She was diagnosed with lung CA with mets and has undergone a course of chemo which ended 2 days before this admission. Her N/V have resolved. She now has diarrhea and a sore throat on the left, with swallowing and chronic back pain with several old back surgeries, needs Oxycodone for management. She gets a friend to help her cook and clean as needed, without compensation. She wants to go home to sleep in her own bed and recuperate in her own house, but understands that she needs several frequent iv antibiotics dosed while she has a neutropenic fever. - Objective/Medical story Objective/Medical Story: She has COPD and lung CA with mets, admitted for nausea and vomiting with dehydration after finishing a first course of chemo 2 days previously. Since admission her N/V have resolved but she developed a fever and a dropping WBC and is neutropenic with ANC of zero. She is on iv empiric antibiotics and has been fully cultured and has neutropenic precautions. She understands that we are treating her per standard of care for neutropenic fever and symptomatically. She had a visit from Dr Li here 2 days ago and Arlyn Garcia NP is also kept abreast of her case. - Goals of Care Goals of care determinations: She wishes to be a DNR and has signed a POLST form previously. She wants aggressive treatment of her cancer to live as long as possible during the 1 year life-expectancy, that was quoted to her by her Oncologist. - Plan Plan: I offerred a Palliative Care consult to patient for assistimg in symptom managemenyt: diarrhea, back pain, splinting due to back pain, but she declined this, and said she has all the handouts for resources at home. Continue current care plan and DNR/DNI status. - Code Status Code Status: Do Not Attempt Resuscitation
[2017-10-03] MEDS ORDERED: PHENOL THROAT SPRAY 177 ML MM PRN (14:31)
[2017-10-03] MEDS: OCTREOTIDE 100 MCG/ML VIAL SUBQ SCH ×2 (16:07→21:12)
[2017-10-03] MEDS: NS W/20 MEQ KCL 1,000 ML IV SCH ×2 (16:17→20:52)
[2017-10-03 17:41] LABS: BILIRUBIN,URINE NEGATIVE (NEGATIVE); GLUCOSE, URINE (UA) NEGATIVE (NEGATIVE); KETONES,URINE (UA) NEGATIVE (NEGATIVE); LEUKOCYTE ESTERASE, URINE NEGATIVE (NEGATIVE); NITRITE,URINE NEGATIVE (NEGATIVE); OCCULT BLOOD,URINE TRACE-INTA (NEGATIVE); PH,URINE 5.5 PH (5.0-7.5); PROTEIN,URINE NEGATIVE (NEGATIVE); UROBILINOGEN,URINE 0.2 (NORMAL) E.U./dL (NORMAL)
[2017-10-03 17:45] LABS: CLARITY,URINE CLEAR (CLEAR)
[2017-10-03 17:59] LABS: BACTERIA,URINE Rare /HPF (None Seen); RBC,URINE 0-5 /HPF (0-5); SQUAMOUS EPITHELIAL CELL,UR FEW Squamous (<= Few)
[2017-10-03] MEDS: ATORVASTATIN 10 MG TABLET PO SCH (20:51)
[2017-10-03] MEDS: LOPERAMIDE 2 MG CAPSULE PO PRN (21:11)
[2017-10-04] MEDS: SODIUM CHLORIDE FLUSH 0.9% 10 ML SYRINGE IVP SCH ×3 (00:06→16:08)
[2017-10-04] MEDS: oxyCODONE 5 MG TABLET PO PRN ×3 (00:24→18:19)
[2017-10-04] MEDS: BUDESONIDE 0.5 MG/2 ML NEB INH SCH ×2 (00:27→08:01)
[2017-10-04] MEDS: FORMOTEROL FUMARATE NEB 20 MCG/2 ML INH SCH ×2 (00:27→08:01)
[2017-10-04] MEDS: OCTREOTIDE 100 MCG/ML VIAL SUBQ SCH ×2 (05:04→14:10)
[2017-10-04] MEDS: metroNIDAZOLE 500 MG/100 ML 500 MG/100 ML BAG IV SCH ×2 (05:10→13:27)
[2017-10-04] MEDS: SACCHAROMYCES BOULARDII 250 MG CAPSULE PO SCH (07:57)
[2017-10-04] MEDS: MAGNESIUM OXIDE 400 MG TABLET PO SCH (07:57)
[2017-10-04] MEDS ORDERED: PANTOPRAZOLE 40 MG TABLET PO SCH (09:00)
[2017-10-04] MEDS: ENOXAPARIN 40 MG/0.4 ML SYRINGE SUBQ SCH (09:16)
[2017-10-04] MEDS: DOCUSATE SODIUM 250 MG CAPSULE PO SCH (09:16)
[2017-10-04] MEDS: POLYETHYLENE GLYCOL 3350 17 GM PACKET PO SCH (09:16)
[2017-10-04] MEDS: SENNA 8.6 MG TABLET PO SCH (09:17)
[2017-10-04] MEDS: NICOTINE 21 MG PATCH TOP SCH (09:17)
[2017-10-04] MEDS ORDERED: MAGNESIUM SULFATE 2 GRAM 2 GM/50 ML BAG IV ONE ×2 (10:14→12:00)
[2017-10-04] MEDS: HYDROmorphone 2 MG/ML VIAL IVP PRN ×2 (10:33→16:07)
[2017-10-04] MEDS: PROCHLORPERAZINE 10 MG/2 ML VIAL IVP PRN (10:40)
[2017-10-04 11:14] LABS: BASOPHILS % (AUTO) 1.5 %; EOSINOPHILS % (AUTO) 1.1 %; HGB - HEMOGLOBIN 8.2 g/dL (12.0-16.0); LYMPHOCYTES % (AUTO) 83.5 %; MEAN CORPUSCULAR HEMOGLOBIN 33.2 pg (27.0-31.0); MEAN CORPUSCULAR HGB CONC 34.5 g/dL (32.0-36.0); MEAN CORPUSCULAR VOLUME 96.5 fL (81.0-99.0); MEAN PLATELET VOLUME 8.4 fL (7.9-10.8); MONOCYTES % (AUTO) 2.4 %; NEUTROPHILS % (AUTO) 11.5 %; PLT - PLATELET COUNT 46 10^3/uL (130-450); RED BLOOD COUNT 2.46 10^6/uL (4.20-5.40); RED CELL DISTRIBUTION WIDTH 13.4 % (12.0-15.0)
[2017-10-04 11:17] LABS: WHITE BLOOD COUNT 0.3 x10^3/uL (4.8-10.8)
[2017-10-04 11:20] LABS: ABNORMAL LYMPHS % (MANUAL) 0 %; BAND NEUTROPHILS % (MANUAL) 0 %
[2017-10-04 11:52] LABS: LYMPHOCYTES # (MANUAL) 0.2 10^3/uL (1.5-3.5); LYMPHOCYTES % (MANUAL) 82 %; NEUTROPHILS % (MANUAL) 14 %
[2017-10-04 11:53] LABS: PLATELET MORPHOLOGY NORMAL APPEARANCE (NORMAL)
[2017-10-04 11:54] LABS: DIFFERENTIAL COMMENT MANUAL DIFFERENTIAL; PLATELET ESTIMATE, MANUAL DECREASED (<130,000) (NORMAL)
[2017-10-04] MEDS: VANCOMYCIN INJ 1 GM in SODIUM CHLORIDE 0.9% 250 ML IV SCH (14:13)
[2017-10-04] MEDS ORDERED: MAGNESIUM OXIDE 400 MG TABLET PO SCH (16:00)
--- NOTE | 2017-10-04 16:38 | Discharge Plan ---
Discharge Plan Disposition: 01 Home, Self Care Condition: Serious Prescriptions: Ciprofloxacin HCl [Cipro] 500 mg PO BID #20 tablet Magnesium Oxide [Mag Ox] 400 mg PO DAILY #30 tablet Diet: Soft Activity Restrictions: Activity as Tolerated Shower Restrictions: No Weight Bearing: Full Weight Instruction Topics: Neutropenia, Chemo Additional Instructions or Follow Up instructions: Restart all your pre-hospital medications. Take the antibiotic for the pneumonia for 10 more days. See your PCP and the Oncologist as previously planned. No Smoking: If you smoke, Please STOP! Call for help. Follow-up with: Uche Steele DO [Primary Care Provider] -
[2017-10-04 18:53] VITALS: BP 111/74
[2017-10-04] MEDS: SODIUM CHLORIDE FLUSH 0.9% 10 ML SYRINGE IVP PRN (19:03)
[2017-10-04] MEDS ORDERED: GABAPENTIN 300 MG CAPSULE PO SCH (21:00)
--- NOTE | 2017-10-05 03:05 | DISCHARGE SUMMARY ---
Physician: Mayra Valdivia MD DATE OF ADMISSION: 09/30/2017 DATE OF DISCHARGE: 10/04/2017 HISTORY OF PRESENT ILLNESS: This is a 66-year-old white female with a history of heavy smoking, COPD, and lung cancer with metastases who has undergone a course of chemotherapy. She developed nausea and vomiting, and anorexia and presented to the hospital after three days of these symptoms, found to be dehydrated and admitted for intractable vomiting. DISCHARGE DIAGNOSES 1. Community-acquired pneumonia. In the middle of her admission, she dropped her white blood count, platelet count, consistent with her chemotherapy. On that day, she also spiked a fever; therefore, she was worked up for cause of infection and a new infiltrate was found in the left base on chest x-ray. She was placed on empiric antibiotics using cephalosporin, vancomycin and Flagyl IV. With this, nebulizers, and incentive spirometry she had improvement in her cough and respiratory status. On the final day, her lung sounds improved from bibasilar rales to clear lung patricio. She was discharged home with an additional 10-day course of Cipro 500 mg p.o. b.i.d. as recommended by SHREYA Zimmerman, who saw her in oncology consult. 2. Chronic obstructive pulmonary disease. The patient did not have an exacerbation with worsening wheezing or shortness of breath, but she was having her chronic cough while here. She was treated with nebulizers, also a nicotine patch because of her tobacco dependence. 3. Leukopenia due to antineoplastic chemotherapy. The patient's admission white blood count was 4.8 but then started dropping to 1.6, 0.6, 0.5 and was 0.3 for the last two days. Her absolute neutrophil count was 0. She was started on neutropenic precautions. She was fully cultured. No cultures were ever positive from sputum, blood or urine. On the final day of hospitalization , her platelet count, which was 184, and droppin, 122, 86, was 46. The prophylactic Lovenox 40 mg dose was not given on the final day. Her hemoglobin also dropped throughout this entire course starting at 10.9, 9.0, 8.8, 8.5, and on her last day it was 8.2. After discussion with SHREYA Zimmerman, she was transfused 1 unit of non-irradiated packed red blood cells as she had symptomatic complaints of dizziness with standing. 4. Neutropenic fever. This is described above in #1 and #3. 5. Dehydration. The patient had hydration with D5 NS throughout her entire course, especially in the beginning when she had nausea and vomiting. By the third day, she was able to take a diet and advanced to solid foods through the rest of the hospital course. Her iv hydration rate was decreased then. 6. Hypomagnesemia. This was felt to be from poor p.o. intake. This was replaced both IV and p.o. She was sent home with a new prescription for magnesium oral supplementation. 7. Metastatic non-small cell lung cancer. The patient wanted aggressive care; however, she did confirm that she is a DNR. I offered her a palliative care consult during this hospital stay during our discussions, but she declined it at this time. 8. Pharyngitis. The final two days of admission, she had complaints of left throat pain with swallowing. Her physical exam was unremarkable with no tonsils present, no pharyngeal erythema and just tenderness to palpation externally over the left upper neck. The patient was given Chloraseptic p.r.n. and kept on the antibiotics as described above. 9. Diarrhea. This started with her IV antibiotic initiation and was minimal and she stated not unprecedented. The stool was sent for C. difficile, which was negative. It was also sent for bacterial cultures, which were all negative. The patient was given Imodium p.r.n. as well as Octreotide for chemotherapy-induced diarrhea. 10. Intractable nausea and vomiting. This was her presenting complaint, which improved with antiemetics by day two of this hospitalization. LABORATORY AND IMAGING: Reviewed and summarized above. ALLERGIES: SULFA, EPINEPHRINE. MEDICATIONS AT THE TIME OF DISCHARGE 1. Albuterol inhaler p.r.n. 2. Cipro 500 mg p.o. b.i.d. for an additional 10 days. 3. Gabapentin 300 mg every evening. 4. Tylenol with codeine p.r.n. 5. Magnesium 400 mg p.o. daily. 6. Omeprazole 40 mg daily. 7. Zofran 8 mg translingual b.i.d. p.r.n. 8. Oxycodone p.r.n. 9. Compazine p.r.n. 10. Zanaflex 4 mg p.o. every 8 hours p.r.n. 11. Symbicort inhaler b.i.d. PHYSICAL EXAMINATION AT THE TIME OF DISCHARGE VITAL SIGNS: Blood pressure 111/74, pulse of 92, afebrile, respiratory rate 14 , room air saturation 95%. HEENT: Unremarkable except for alopecia. NECK: Without JVD or carotid bruits. CHEST: Clear with good air movement. No rales or rhonchi. HEART: Heart sounds normal. ABDOMEN: Soft. No organomegaly. EXTREMITIES: Without edema. NEUROLOGIC: Intact. FOLLOWUP: With her PCP as previously arranged and with [facility] here as previously arranged. CODE STATUS: DNR. Time required to complete this entire discharge; dictation, discharge, chart review, prescription and medications: 45 minutes. TD: 10/04/2017 19:50 VALERIE
== END 2017-10-04 20:00 | disposition home or self-care (01) | DRG 391 ==
LOC: ED 10:35 → OBS 14:12 → MS2 14:46 → OBSVTOIN 09-30 09:57
PROVIDERS: ADMIT Internal Medicine; ATTEND Internal Medicine
PROC: 30233N1 Transfusion of Nonautologous Red Blood Cells into Peripheral Vein, Percutaneous Approach (ICD-10-PCS; principal; 2017-10-04)
DX: R11.2 Nausea with vomiting, unspecified (principal); D61.810 Antineoplastic chemotherapy induced pancytopenia; J18.9 Pneumonia, unspecified organism; C34.90 Malignant neoplasm of unspecified part of unspecified bronchus or lung; R64 Cachexia; Z68.1 Body mass index [BMI] 19.9 or less, adult; C34.32 Malignant neoplasm of lower lobe, left bronchus or lung; J44.9 Chronic obstructive pulmonary disease, unspecified; F17.200 Nicotine dependence, unspecified, uncomplicated; C78.7 Secondary malignant neoplasm of liver and intrahepatic bile duct; E87.1 Hypo-osmolality and hyponatremia; E86.0 Dehydration; Z79.899 Other long term (current) drug therapy; Z66 Do not resuscitate; R63.0 Anorexia; F17.210 Nicotine dependence, cigarettes, uncomplicated; M54.9 Dorsalgia, unspecified; G89.29 Other chronic pain; E87.6 Hypokalemia; J43.9 Emphysema, unspecified; E78.5 Hyperlipidemia, unspecified; Y95 Nosocomial condition; E83.42 Hypomagnesemia; J02.9 Acute pharyngitis, unspecified; R19.7 Diarrhea, unspecified; T45.1X5A Adverse effect of antineoplastic and immunosuppressive drugs, initial encounter
CPT/HCPCS: 36415; 71045; 71046; 80053; 81001; 81003; 82270; 83605; 83690; 83735; 84100; 84484; 85025; 85610; 86850; 86900; 86901; 86920; 87040; 87045; 87046; 87070; 87086; 87205; 87493; 94640; 96361; 96372; 96374; 96375; 96376; 99233; 99283; 99284

== ENCOUNTER 2017-11-17 15:37 | Inpatient (IN) | payer MEDICAID, MEDICARE ==
[2017-11-17] MEDS ORDERED: SODIUM CHLORIDE 0.9% 1,000 ML IV ONE (16:01)
--- NOTE | 2017-11-17 16:04 | ED Physician Documentation ---
PD HPI FOCAL NEURO - Stated complaint Stated Complaint: BACK PX/TOOTHACHE - Chief complaint Chief Complaint: Neuro - History obtained from History obtained from: Patient - History of Present Illness Timing - onset: Other (This is a 66-year-old woman undergoing chemotherapy for metastatic non-small cell lung cancer. She has chronic back pain. She presents today, she had a toothache and was started on amoxicillin. Then over the last 2 days developed gradual onset Left facial droop, numbness, inability to close her eye and drooling out of the left side of her mouth. It is associated with mild left temporal headache. She also notes dysphagia and really has not been able to eat or drink in the last days because of the symptoms. She does have some numbness in the left leg as well, but that seems more subacute to chronic related to her back pain which is not any worse than normal.) Review of Systems Ten Systems: 10 systems reviewed and negative Constitutional: denies: Fever, Chills Throat: reports: Dental pain / toothache. 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 05/25/17 11/05/17 oxyCODONE [Roxicodone] 5 - 10 mg PO Q4H PRN #16 tablet 05/25/17 11/05/17 Albuterol 0.63 mg INH Q4H PRN 09/29/17 11/05/17 Albuterol Sulf [Ventolin Hfa 1 - 2 puffs INH Q4HR PRN 09/29/17 11/05/17 Inhaler] Gabapentin 300 mg PO QPM 09/29/17 11/05/17 Ondansetron HCl [Zofran] 8 mg TL BID 09/29/17 11/05/17 Prochlorperazine [Compazine] 10 mg PO Q6H PRN 09/29/17 11/05/17 tiZANidine [Zanaflex] 4 mg PO Q8H PRN 09/29/17 11/05/17 Symbicort 80-4.5 Mcg Inhaler 1 puffs INH BID 10/02/17 11/05/17 Ciprofloxacin HCl [Cipro] 500 mg PO BID #20 tablet 10/04/17 11/05/17 Magnesium Oxide [Mag Ox] 400 mg PO DAILY #30 tablet 10/04/17 11/05/17 Potassium Chloride [K-Dur] 20 meq PO BIDWM 10/10/17 11/05/17 - Allergies Allergies/Adverse Reactions: Allergies Allergy/AdvReac Type Severity Reaction Status Date / Time Sulfa (Sulfonamide Allergy Severe Edema Verified 11/17/17 15:48 Antibiotics) epinephrine AdvReac palpitation Verified 11/17/17 15:48 s - Social History Does the pt smoke?: Yes Smoking Status: Current every day smoker Does the pt drink ETOH?: No Does the pt have substance abuse?: No - Immunizations Immunizations are current?: Yes - POLST Patient has POLST: Yes POLST Status: DNR PD ED PE NORMAL - Vitals Vital signs reviewed: Yes - General General: Alert and oriented X 3, No acute distress - HEENT HEENT: PERRL, EOMI, Other (She has a dense left facial droop which does not spare the forehead. She is unable to completely close the eye. She is tender over the last left mandibular tooth but without facial swelling. Note that she is edentulous on top and missing a lot of teeth on the bottom.) - Neck Neck: Supple, no meningeal sign, No bony TTP - Cardiac Cardiac: RRR, No murmur - Respiratory Respiratory: No respiratory distress, Clear bilaterally - Abdomen Abdomen: Normal bowel sounds, Soft, Non tender - Back Back: No CVA TTP, No spinal TTP - Derm Derm: Normal color, Warm and dry - Extremities Extremities: No deformity, No tenderness to palpate, Normal ROM s pain - Neuro Neuro: Alert and oriented X 3 Eye Opening: Spontaneous Motor: Obeys Commands Verbal: Oriented GCS Score: 15 - Psych Psych: Normal mood, Normal affect NIHSS - Time Time: 15:55 - Level of Consciousness Level of consciousness: (0) Alert, Keenly responsive LOC Questions: (0) Answers both Q's correct LOC Commands: (0) Performs both correctly - Gaze Best Gaze: (0) Normal - Visual Visual: (0) No loss - Facial Palsy Facial Palsy: (3) Complete paralysis - Motor Arms (both separate) Motor Arm (right): (0) No drift Motor Arm (left): (0) No drift - Motor Legs (both separate) Motor Leg (right): (0) No drift Motor Leg (left): (0) No drift - Limb Ataxia Limb Ataxia: (0) Absent - Sensory Sensory: (1) [id number]-[id number] loss - Best Language Best Language: (0) No aphasia - Dysarthria Dysarthria: (0) Normal - Extinction and Inattention (formally neg Extinction and inattention: (0) No abnormality - Total Score/Results Total Score/Result: 4 Results - Vitals Vitals: Vital Signs - 24 hr 11/17/17 11/17/17 11/17/17 15:44 17:00 17:15 Temperature 36.5 C Heart Rate 124 H 93 75 Respiratory 16 16 Rate Blood Pressure 135/107 H O2 Saturation 96 97 100 Oxygen O2 Source Room air - Labs Labs: Laboratory Tests 11/17/17 11/17/17 11/17/17 16:45 16:45 16:45 WBC 7.9 RBC 2.96 L Hgb 9.3 L Hct 28.0 L MCV 94.7 MCH 31.6 H MCHC 33.3 RDW 17.7 H Plt Count 431 MPV 7.7 L PT 14.1 H INR 1.3 H Sodium 134 L Potassium 3.4 L Chloride 100 L Carbon Dioxide 21 Anion Gap 13.0 BUN 21 H Creatinine 0.8 Estimated GFR (MDRD) 72 L Glucose 90 Calcium 9.2 Total Bilirubin 0.5 AST 27 ALT 11 Alkaline Phosphatase 96 Total Protein 8.0 Albumin 3.3 Globulin 4.7 H Albumin/Globulin Ratio 0.7 L Lipase 157 H - Rads (name of study) CT Head Radiology: EMP read contemporaneously (Atrophy, NAD) PD MEDICAL DECISION MAKING - ED course ED course: 66-year-old woman with acute left facial droop. She has ongoing lung cancer under treatment with chemotherapy. 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 That said the dysphagia is concerning and would suggest a central cause. So I placed a call to the hospitalist, Dr. Valdivia for observation at 5:09 PM. She called me back around 535 and we discussed the case and would like her as an inpatient. She feels low risk and likelihood of actual CVA is high given the dysphagia. - Sepsis Event Vital Signs: Vital Signs - 24 hr 11/17/17 11/17/17 11/17/17 15:44 17:00 17:15 Temperature 36.5 C Heart Rate 124 H 93 75 Respiratory 16 16 Rate Blood Pressure 135/107 H O2 Saturation 96 97 100 Oxygen O2 Source Room air Departure - Departure Disposition: [facility] DC/Xfer Clinical Impression: Lung cancer Qualifiers: Laterality: unspecified laterality Lung location: unspecified part of lung Qualified Code(s): C34.90 - Malignant neoplasm of unspecified part of unspecified bronchus or lung Cerebrovascular accident (CVA) Qualifiers: CVA mechanism: unspecified Qualified Code(s): I63.9 - Cerebral infarction, unspecified Condition: Stable
[2017-11-17] MEDS ORDERED: HYDROmorphone 1 MG/ML CARPUJECT IVP STA ×2 (16:10→17:29)
--- NOTE | 2017-11-17 17:04 | CT Report ---
Reason: left facial droop Procedure Date: 11/17/2017 Accession Number: [id number] / [id number] Procedure: CT - Head W/O CPT Code: FULL RESULT: EXAM: CT HEAD EXAM DATE: 11/17/2017 04:40 PM. CLINICAL HISTORY: Left facial droop. Tooth pain. COMPARISON: HEAD W/ 07/11/2017 4:59 PM. TECHNIQUE: Multiaxial CT images were obtained from the foramen magnum to the vertex. Reformats: Coronal. IV contrast: None. In accordance with CT protocol optimization, one or more of the following dose reduction techniques were utilized for this exam: automated exposure control, adjustment of mA and/or KV based on patient size, or use of iterative reconstructive technique. FINDINGS: Parenchyma: No intraparenchymal hemorrhage. No evidence of mass, midline shift, or CT findings of acute infarction. Cheek-white differentiation is distinct. Mild to moderate bilateral chronic microangiopathic white matter changes are evident. Extraaxial Spaces: Normal for age. No subdural or epidural collections identified. Ventricles: The ventricles and cortical sulci are prominent, consistent with mild generalized age-related tissue loss. Sinuses and orbits: Imaged paranasal sinuses, orbits, and mastoids show no significant abnormality. Bones: No evidence of fracture or calvarial defect. IMPRESSION: Generalized age-related cortical atrophic changes without evidence of acute intracranial abnormality. Mild to moderate bilateral chronic microangiopathic white matter changes are evident. RADIA
[2017-11-17] MEDS ORDERED: ASPIRIN 325 MG TABLET PO STA (17:07)
[2017-11-17] MEDS ORDERED: predniSONE 20 MG TABLET PO STA (17:07)
[2017-11-17] MEDS ORDERED: ACYCLOVIR 200 MG CAPSULE PO STA (17:07)
[2017-11-17 17:10] LABS: INR 1.3 (0.8-1.2); PT - PROTHROMBIN TIME 14.1 secs (9.9-12.6)
[2017-11-17 17:11] LABS: BASOPHILS % (AUTO) 0.7 %; EOSINOPHILS % (AUTO) 0.3 %; HGB - HEMOGLOBIN 9.3 g/dL (12.0-16.0); LYMPHOCYTES % (AUTO) 9.7 %; MEAN CORPUSCULAR HEMOGLOBIN 31.6 pg (27.0-31.0); MEAN CORPUSCULAR HGB CONC 33.3 g/dL (32.0-36.0); MEAN CORPUSCULAR VOLUME 94.7 fL (81.0-99.0); MEAN PLATELET VOLUME 7.7 fL (7.9-10.8); MONOCYTES % (AUTO) 17.8 %; NEUTROPHILS % (AUTO) 71.5 %; PLT - PLATELET COUNT 431 10^3/uL (130-450); RED BLOOD COUNT 2.96 10^6/uL (4.20-5.40); RED CELL DISTRIBUTION WIDTH 17.7 % (12.0-15.0); WHITE BLOOD COUNT 7.9 x10^3/uL (4.8-10.8)
[2017-11-17 17:13] LABS: ABNORMAL LYMPHS % (MANUAL) 0 %
[2017-11-17 17:17] LABS: ALBUMIN 3.3 g/dL (3.2-5.5); ALBUMIN/GLOBULIN RATIO 0.7 (1.0-2.2); BILIRUBIN,TOTAL 0.5 mg/dL (0.2-1.0); CALCIUM 9.2 mg/dL (8.5-10.3); CREATININE 0.8 mg/dL (0.4-1.0)
[2017-11-17 18:05] LABS: BAND NEUTROPHILS % (MANUAL) 11 %; DIFFERENTIAL COMMENT MANUAL DIFFERENTIAL; LYMPHOCYTES # (MANUAL) 0.9 10^3/uL (1.5-3.5); LYMPHOCYTES % (MANUAL) 11 %; METAMYELOCYTES % (MANUAL) 1 %; MONOCYTES # (MANUAL) 0.6 10^3/uL (0.0-1.0); NEUTROPHILS # (MANUAL) 6.2 10^3/uL (1.5-6.6); NEUTROPHILS % (MANUAL) 68 %; PLATELET ESTIMATE, MANUAL NORMAL (130-450,000) (NORMAL); PLATELET MORPHOLOGY NORMAL APPEARANCE (NORMAL)
[2017-11-17] MEDS ORDERED: ONDANSETRON 4 MG/2 ML VIAL IVP PRN (20:28)
[2017-11-17] MEDS: DEXTROSE 5%-0.9% NACL 1,000 ML IV SCH (21:13)
[2017-11-17] MEDS: SODIUM CHLORIDE FLUSH 0.9% 10 ML SYRINGE IVP PRN (21:13)
[2017-11-17] MEDS: MORPHINE 2 MG/ML CARPUJECT IVP PRN (21:14)
[2017-11-17] MEDS: HEPARIN 5,000 UNIT/ML VIAL SUBQ SCH (21:24)
--- NOTE | 2017-11-17 23:20 | HISTORY & PHYSICAL EXAMINATION ---
Chief Complaint - Chief Complaint Chief Complaint: left-sided facial droop and dysphagia History of Present Illness - History of Present Illness HPI Comment/Other: Patient is a 66 y/o female with lung cancer currently on chemotherapy. It has been about 30 days since her last session of chemotherapy. She presented to the ED with left facial droop and numbness. She she attempted eating boiled rice and was choking so she decided to come in for evaluation. When she attempts to drink liquids, it drools out the left side of of her mouth. She reports headaches but denies vision changes or dizziness. She denies weakness in any of her extremities. Her EOM are intact but she is unable to raise her eyelids on the left. She appears frail. She denies chest pain, BRITTA, abd pain. She reports rib pain and she was dry heaving in during the course of the exam. 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 This is a retirement facility. She lives alone. She does have one daughter from whom she is estranged. She moved would be [place] 6 years ago. Prior to that she lived in [place]. 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 She states that she does have some social support and has a very good friend who lives near her. She states that she continues to smoke 3-5 cigarettes a day. Prior to that she smoked a pack and a half a day for 50 years. She denies any alcohol or illicit drug use. - POLST Patient has POLST: Yes POLST Status: DNR Meds/Allgy - Home Medications Home Medications: Ambulatory Orders Medication Instructions Recorded Confirmed Omeprazole 40 mg PO DAILY #30 capsule. 05/25/17 11/05/17 oxyCODONE [Roxicodone] 5 - 10 mg PO Q4H PRN #16 tablet 05/25/17 11/05/17 Albuterol 0.63 mg INH Q4H PRN 09/29/17 11/05/17 Albuterol Sulf [Ventolin Hfa 1 - 2 puffs INH Q4HR PRN 09/29/17 11/05/17 Inhaler] Gabapentin 300 mg PO QPM 09/29/17 11/05/17 Ondansetron HCl [Zofran] 8 mg TL BID 09/29/17 11/05/17 Prochlorperazine [Compazine] 10 mg PO Q6H PRN 09/29/17 11/05/17 tiZANidine [Zanaflex] 4 mg PO Q8H PRN 09/29/17 11/05/17 Symbicort 80-4.5 Mcg Inhaler 1 puffs INH BID 10/02/17 11/05/17 Ciprofloxacin HCl [Cipro] 500 mg PO BID #20 tablet 10/04/17 11/05/17 Magnesium Oxide [Mag Ox] 400 mg PO DAILY #30 tablet 10/04/17 11/05/17 Potassium Chloride [K-Dur] 20 meq PO BIDWM 10/10/17 11/05/17 - Allergies Allergies/Adverse Reactions: Allergies Allergy/AdvReac Type Severity Reaction Status Date / Time Sulfa (Sulfonamide Allergy Severe Edema Verified 11/17/17 15:48 Antibiotics) epinephrine AdvReac palpitation Verified 11/17/17 15:48 s Review of Systems - Constitutional Constitutional: reports: Weakness, Weight loss - Eyes Eyes: denies: Pain, Irritation, Blurred vision, Spots in vision, Vision loss, Dipolpia - Ears, Nose & Throat Ears, Nose & Throat: reports: Ear pain. denies: Hearing loss, Hearing aids, Vertigo - Cardiovascular Cariovascular: denies: Irregular heart rate, Palpitations, Chest pain, Edema, Lightheadedness, Syncope - Respiratory Respiratory: denies: Cough, Sputum production, Wheezing, Snoring, Hemoptysis - Gastrointestinal Gastrointestinal: reports: Nausea. denies: Abdominal pain, Abdominal di stention, Constipation, Diarrhea, Black stools, Vomiting - Genitourinary Genitourinary: denies: Dysuria, Frequency, Urgency - Musculoskeletal Musculoskeletal: reports: Back pain. denies: Muscle pain, Muscle aches, Stiffne ss - Integumentary Integumentary: denies: Rash, Pruritis, Lesions, Dryness - Psychiatric Psychiatric: denies: Suicidal, Delusions, Hallucinations - Hematologic/Lymphatic Hematologic/Lymphatic: denies: Bruising, Petechiae, Bleeding tendencies Exam - Vital Signs Reviewed Vital Signs: Yes Vital Signs: Vital Signs x48h Temp Pulse Pulse Resp BP BP Pulse Ox 11/17/17 18:55 36.7 C 102 H 20 129/69 96 11/17/17 18:00 87 16 127/90 H 97 11/17/17 17:15 75 100 11/17/17 17:00 93 16 97 11/17/17 15:44 36.5 C 124 H 16 135/107 H 96 - Physical Exam General Appearance: positive: Alert, Moderate distress Eyes Bilateral: positive: Normal inspection, PERRL, EOMI, No lid inflammation, Conjunctivae nml, No scleral icterus ENT: negative: Purulent nasal drainage, Pharyngeal erythema Neck: positive: Nml inspection, Thyroid nml, No JVD, Trachea midline, Thyromegaly Respiratory: positive: Chest non-tender, No respiratory distress, Breath sounds nml Cardiovascular: positive: Regular rate & rhythm, No murmur, No gallop. negative: Irregularly irregular Abdomen: positive: No organomegaly, Nml bowel sounds, No distention, Tenderness Skin: positive: Color nml, No rash, Warm, Dry Extremities: positive: Non-tender, Full ROM, Nml appearance, No pedal edema Neurologic/Psychiatric: positive: Oriented x3, Mood/affect nml, Facial droop. 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, r/o CVA Patient was given Acyclovir 800mg po and prednisone 60mg po in the ED Recommendations for concern of a viral cause for Pelayo's Palsy is for Prednisone 60mg po X 1 week and valacyclovir 1000mg tid X 1week No eye protection currently because there is adequate eye closure Patient currently npo pending speech eval and recommendations Expectations is for symptoms to start improving after 3 weeks If no improvement at 4 months, patient will need to be re-evaluated In light of concurrent dysphagia, will initiate CVA work up MRI sherri w/o contast, 2D echo, carotid dopplers ordered Checking lipid panel, HgA1c. Neuro check q shift (2) Lung cancer Conclusion/Plan: Patient follows with the MAC Last session of chemotherapy was about 30 days ago Next session had to be postponed because patient was recently admitted with neutropenic fever Qualifiers: Laterality: unspecified laterality Lung location: unspecified part of lung Qualified Code(s): C34.90 - Malignant neoplasm of unspecified part of unspecified bronchus or lung (3) Chronic back pain Conclusion/Plan: Morphine 2mg IV q2hrs prn ordered Qualifiers: Back pain location: thoracic back pain Back pain laterality: midline Qualified Code(s): M54.6 - Pain in thoracic spine; G89.29 - Other chronic pain; G89.29 - Other chronic pain (4) COPD (chronic obstructive pulmonary disease) Conclusion/Plan: Not in exacerbation Will order breathing treatment as needed Qualifiers: COPD type: emphysema Emphysema type: unspecified Qualified Code(s): J43.9 - Emphysema, unspecified - Lab Results Fish Bones: 11/17/17 16:45 11/17/17 16:45
[2017-11-18] MEDS: MORPHINE 2 MG/ML CARPUJECT IVP PRN ×10 (00:26→23:48)
--- NOTE | 2017-11-18 01:39 | Ultrasound Report ---
Reason: CVA work up Procedure Date: 11/18/2017 Accession Number: [id number] / [id number] Procedure: US - Carotid Doppler Complete CPT Code: FULL RESULT: EXAM: BILATERAL CAROTID AND VERTEBRAL ARTERY DUPLEX DOPPLER ULTRASOUND: EXAM DATE: 11/18/2017 12:48 AM CLINICAL HISTORY: CVA work-up. COMPARISON: None. TECHNIQUE: Grayscale imaging, color Doppler, and duplex spectral Doppler were used to evaluate the carotid and vertebral arteries bilaterally. Static images were obtained. FINDINGS: There is mild calcified plaque at the common carotid artery bifurcation bilaterally. No significant carotid artery stenosis based on grayscale imaging. Normal antegrade flow is present in bilateral vertebral arteries. VELOCITIES (cm/sec): Right: CCA Mid: PSV 55.6 cm/sec. CCA Dist: PSV 56.9 cm/sec. ICA Prox: PSV 52.4 cm/sec, EDV 14.5 cm/sec. ICA Mid: PSV 53.1 cm/sec, EDV 20.2 cm/sec. ICA Dist: PSV 73.9 cm/sec, EDV 26.5 cm/sec. ECA Prox: PSV 68.9 cm/sec. Vertebral: PSV 75.8 cm/sec, antegrade flow. ICA/CCA: 0.9. Left: CCA Mid: PSV 64.5 cm/sec. CCA Dist: PSV 56.9 cm/sec. ICA Prox: PSV 65.0 cm/sec, EDV 23 cm/sec. ICA Mid: PSV 56.9 cm/sec, EDV 26.2 cm/sec. ICA Dist: PSV 43.3 cm/sec, EDV 14.7 cm/sec. ECA Prox: PSV 84.4 cm/sec. Vertebral: PSV 43.8 cm/sec, antegrade flow. ICA/CCA: 1.2 ICA diameter stenosis: Right: <50% by velocity and <70% by NASCET criteria. Left: <50% by velocity and <70% by NASCET criteria. IMPRESSION: 1. Mild bilateral common carotid artery bifurcation atheromatous plaque. No hemodynamically significant stenosis. RADIA
[2017-11-18] MEDS: SODIUM CHLORIDE FLUSH 0.9% 10 ML SYRINGE IVP SCH ×4 (03:17→23:57)
[2017-11-18] MEDS ORDERED: SODIUM CHLORIDE FLUSH 0.9% 10 ML SYRINGE IVP PRN (05:36)
[2017-11-18] MEDS: SODIUM CHLORIDE FLUSH 0.9% 10 ML SYRINGE IVP PRN ×3 (06:31→23:48)
[2017-11-18] MEDS: DEXTROSE 5%-0.9% NACL 1,000 ML IV SCH ×2 (06:47→16:01)
[2017-11-18 07:03] LABS: BASOPHILS % (AUTO) 0.3 %; HGB - HEMOGLOBIN 8.4 g/dL (12.0-16.0); LYMPHOCYTES % (AUTO) 12.8 %; MEAN CORPUSCULAR HEMOGLOBIN 32.7 pg (27.0-31.0); MEAN CORPUSCULAR HGB CONC 34.6 g/dL (32.0-36.0); MEAN CORPUSCULAR VOLUME 94.5 fL (81.0-99.0); MEAN PLATELET VOLUME 7.5 fL (7.9-10.8); MONOCYTES % (AUTO) 13.2 %; NEUTROPHILS % (AUTO) 73.7 %; PLT - PLATELET COUNT 395 10^3/uL (130-450); RED BLOOD COUNT 2.56 10^6/uL (4.20-5.40); RED CELL DISTRIBUTION WIDTH 17.3 % (12.0-15.0); WHITE BLOOD COUNT 5.5 x10^3/uL (4.8-10.8)
[2017-11-18 07:17] LABS: ABNORMAL LYMPHS % (MANUAL) 0 %; BUN - BLOOD UREA NITROGEN 19 mg/dL (6-20); CALCIUM 8.8 mg/dL (8.5-10.3); CARBON DIOXIDE - CO2 20 mmol/L (21-32); CHLORIDE 105 mmol/L (101-111); CHOL/HDL RATIO 7.2 (<4.4); CHOLESTEROL 216 mg/dL; CREATININE 0.7 mg/dL (0.4-1.0); GFR - MDRD 84 (>89); GLUCOSE 160 mg/dL (70-100); HDL CHOLESTEROL 30 mg/dL; LDL CHOLESTEROL,CALCULATED 156 mg/dL; LDL/HDL RATIO 5.2 (<4.4); SODIUM 136 mmol/L (135-145); VLDL CHOLESTEROL 30 mg/dL
[2017-11-18 07:49] LABS: BAND NEUTROPHILS % (MANUAL) 3 %; LYMPHOCYTES # (MANUAL) 0.8 10^3/uL (1.5-3.5); LYMPHOCYTES % (MANUAL) 14 %; METAMYELOCYTES % (MANUAL) 2 %; MONOCYTES # (MANUAL) 0.4 10^3/uL (0.0-1.0); NEUTROPHILS # (MANUAL) 4.2 10^3/uL (1.5-6.6); NEUTROPHILS % (MANUAL) 73 %
[2017-11-18 07:52] LABS: DIFFERENTIAL COMMENT MANUAL DIFFERENTIAL; PLATELET ESTIMATE, MANUAL NORMAL (130-450,000) (NORMAL); PLATELET MORPHOLOGY NORMAL APPEARANCE (NORMAL)
[2017-11-18 08:03] LABS: HB2 TOTAL 8.5 g/dL; HEMOGLOBIN A1C 0.31 g/dL; HEMOGLOBIN A1C % 5.5 % (4.6-6.2)
[2017-11-18] MEDS: POLYETHYLENE GLYCOL 3350 17 GM PACKET PO SCH (09:35)
--- NOTE | 2017-11-18 09:55 | MRI Report ---
Reason: left-sided facial droop, dysphagia Procedure Date: 11/18/2017 Accession Number: [id number] / [id number] Procedure: MRI - Brain W/O CPT Code: FULL RESULT: EXAM: MRI BRAIN WITHOUT CONTRAST EXAM DATE: 11/18/2017 08:31 AM. CLINICAL HISTORY: Left-sided facial droop, dysphagia. Also history of lung cancer. COMPARISON: 04/03/2017. TECHNIQUE: Multiplanar, multisequence T1-weighted and fluid-sensitive MR sequences of the brain were performed. Sequences optimized for routine evaluation. Other: None. IV Contrast: None. FINDINGS: New 4 mm round focus of restricted diffusion in the head of the left caudate nucleus. New peripheral 6 mm region of abnormal T2 hyperintensity with mild diffusion hyperintensity at the periphery of the anterior left frontal lobe. Restricted diffusion is difficult to confidently confirm. No other evidence for acute diffusion abnormality. No evidence for acute hemorrhage. Stable findings of probable chronic microhemorrhages in the right temporal lobe and left cerebellum. Stable brain volume. No hydrocephalus, midline shift or abnormal subdural fluid collection. Again seen are findings of moderate to severe bilateral cerebral white matter disease, extensive T2-hyperintense signal changes are similar to prior. Similar findings of prominent abnormal amorphous T2 hyperintensity of the brainstem, mainly of the jacky. There are now small patchy and confluent regions of abnormal mastoid fluid signal. No acute-appearing paranasal sinus disease. The ICA skull base flow voids are present. There now appears to be abnormal amorphous T2 hyperintensity in the marrow spaces of the calvarium which was not evident previously. IMPRESSION: 1. Small focus of restricted diffusion in the left caudate nucleus head with T2 hyperintensity raises the possibility of recent ischemic infarct. 2. Small region of peripheral abnormal T2-hyperintense/diffusion-hyperintense signal change in the anterior left frontal lobe. This may also be postischemic. This finding, however, is nonspecific and tumor such as metastatic disease may give a similar appearance. 3. Similar findings of severe chronic-appearing white matter disease above and below the tentorium. 4. T2-hyperintense lesions can also be seen with metastatic tumor; if there is concern for brain metastasis, consider short-interval brain MRI follow-up preferably with gadolinium contrast to further evaluate for tumor metastasis to the brain. 5. There now appears to be abnormal amorphous T2 hyperintensity in the marrow spaces of the skull which can be associated with metastatic disease. Additional evaluation for osseous metastatic disease to the skeleton could include whole-body bone scan. RADIA
[2017-11-18] MEDS: HEPARIN 5,000 UNIT/ML VIAL SUBQ SCH ×2 (10:08→21:41)
[2017-11-18] MEDS: predniSONE 20 MG TABLET PO SCH (12:55)
[2017-11-18] MEDS: PANTOPRAZOLE 40 MG VIAL IVP SCH (13:47)
[2017-11-18] MEDS: AMOXICILLIN 500 MG PO SCH ×2 (16:03→21:43)
--- NOTE | 2017-11-18 16:40 | PROVIDER PROGRESS NOTE ---
Subjective - Prog Note Date Prog Note Date: 11/18/17 Prog Note Time: 16:38 - Subjective Pt reports feeling: No change Subjective: Nina complains of left facial numbness and continues to have swallowing difficulties. She denies chest pain, N/V, diarrhea, rashes, increased shortness of breath, or a new cough. Current Medications - Current Medications Current Medications: Active Medications Aspirin (Ecotrin) 325 mg PO DAILY [facility] Atorvastatin Calcium (Lipitor) 80 mg PO QPM [facility] Heparin Sodium (Beef Lung) () 30 - 50 unit IVP PRN PRN PRN Reason: Port Protocol (<24 hours) Last Admin: 11/18/17 06:31 Dose: 50 unit Heparin Sodium (Porcine) () 5,000 unit SUBQ BID [facility] Last Admin: 11/18/17 10:08 Dose: Not Given Dextrose/Sodium Chloride (D5ns) 1,000 mls @ 100 mls/hr IV .Q10H [facility] Last Admin: 11/18/17 16:01 Dose: 100 mls/hr Morphine Sulfate (Morphine (Carpuject)) 2 mg IVP Q2HR PRN PRN Reason: Pain 8 to 10 Last Admin: 11/18/17 16:00 Dose: 2 mg Ondansetron HCl (Zofran Inj) 4 mg IVP Q6HR PRN PRN Reason: Nausea / Vomiting Pantoprazole Sodium (Protonix) 40 mg IVP QDAC [facility] Last Admin: 11/18/17 13:47 Dose: 40 mg Amoxicillin 500 Mg (Tab) 1 each PO TID [facility] Last Admin: 11/18/17 16:03 Dose: 1 each Polyethylene Glycol (Miralax) 17 gm PO DAILY [facility] Last Admin: 11/18/17 09:35 Dose: Not Given Prednisone (Deltasone) 60 mg PO DAILYWM [facility] Stop: 11/24/17 07:59 Last Admin: 11/18/17 12:55 Dose: 60 mg Sodium Chloride (Normal Saline Flush 0.9%) 10 ml IVP PRN PRN PRN Reason: NEEDED PER PROVIDER ORDERS Last Admin: 11/18/17 16:01 Dose: 10 ml Sodium Chloride (Normal Saline Flush 0.9%) 10 ml IVP 0100,0900,1700 [facility] Last Admin: 11/18/17 15:37 Dose: Not Given Sodium Chloride (Normal Saline Flush 0.9%) 20 ml IVP PRN PRN PRN Reason: After Blood Draw Last Admin: 11/18/17 06:31 Dose: 20 ml RX: Albuterol Sulf [Ventolin Hfa Inhaler] 1 - 2 puffs INH Q4HR PRN 09/29/17 RX: Gabapentin 300 mg PO QPM 09/29/17 RX: tiZANidine [Zanaflex] 4 mg PO TID PRN 09/29/17 Budesonide/Formoterol Fumarate [Symbicort 160-4.5 Mcg Inhaler] 1 puffs IH BID #0 10/02/17 Potassium Chloride [K-Dur] 20 meq PO BIDWM 10/10/17 Objective - Vital Signs/Intake & Output Reviewed Vital Signs: Yes Vital Signs: Vital Signs x48h Temp Pulse Pulse Resp BP Pulse Ox 11/18/17 16:20 36.7 C 87 16 139/87 H 93 11/18/17 12:49 36.8 C 89 16 141/83 H 96 11/18/17 10:12 36.7 C 75 18 95 Intake & Output: Intake & Output 11/15/17 11/16/17 11/17/17 11/18/17 23:59 23:59 23:59 23:59 Intake Total 1000 3 Output Total 300 Balance 1000 1723 - Objective General Appearance: positive: Alert, Mild distress, Anxious, Lethargic Eyes Bilateral: positive: PERRL Eyes: OU Conjunctivae pale ENT: positive: Pharyngeal erythema, Dry mucous membranes Neck: positive: No JVD, Lymphadenopathy (R), Lymphadenopathy (L), Stiff neck Respiratory: positive: Chest non-tender, No respiratory distress, Other (diminished with scattered crackles.) Peripheral Pulses: 1+ Radial (R), 1+ Radial (L) Abdomen: positive: Non-tender, Nml bowel sounds Back: positive: Nml inspection Skin: positive: No rash, Warm, Dry, Pallor Extremities: positive: Non-tender, Full ROM, No pedal edema Neurologic/Psychiatric: positive: Oriented x3, Weakness, Facial droop (left), Slurred/abnml speech, Depressed mood/affect Reflexes: Bicep (R): 2+, Bicep (L): 2+ - Lab Results Fish Bones: 11/18/17 06:40 11/18/17 06:40 Other Labs: Lab Results x24hrs 11/18/17 11/18/17 11/18/17 Range/Units 06:40 06:40 06:40 WBC 5.5 (4.8-10.8) x10^3/uL RBC 2.56 L (4.20-5.40) 10^6/uL Hgb 8.4 L (12.0-16.0) g/dL Hct 24.2 L (37.0-47.0) % MCV 94.5 (81.0-99.0) fL MCH 32.7 H (27.0-31.0) pg MCHC 34.6 (32.0-36.0) g/dL RDW 17.3 H (12.0-15.0) % Plt Count 395 (130-450) 10^3/uL MPV 7.5 L (7.9-10.8) fL Neut # (Auto) Not Reportable Lymph # (Auto) Not Reportable Logan # (Auto) Not Reportable Eos # (Auto) Not Reportable Baso # (Auto) Not Reportable Absolute Nucleated RBC Not Reportable Total Counted 100 Band Neuts % (Manual) 3 (0 - 10) % Reactive Lymphs % (Man) 1 % Abnorm Lymph % (Manual) 0 % Metamyelocytes % 2 H ( - 0) % Nucleated RBC % Not Reportable Neutrophils # (Manual) 4.2 (1.5-6.6) 10^3/uL Lymphocytes # (Manual) 0.8 L (1.5-3.5) 10^3/uL Monocytes # (Manual) 0.4 (0.0-1.0) 10^3/uL Eosinophils # (Manual) 0.0 (0-0.7) 10^3/uL Basophils # (Manual) 0.0 (0-0.1) 10^3/uL Differential Comment MANUAL DIFFERENTIAL Platelet Estimate NORMAL (130-450,000) (NORMAL) Platelet Morphology NORMAL APPEARANCE (NORMAL) RBC Morph Micro Appear 1+ POIKILOCYTOSIS (NORMAL) PT (9.9-12.6) secs INR (0.8-1.2) Sodium (135-145) mmol/L Potassium (3.5-5.0) mmol/L Chloride (101-111) mmol/L Carbon Dioxide (21-32) mmol/L Anion Gap (6-13) BUN (6-20) mg/dL Creatinine (0.4-1.0) mg/dL Estimated GFR (MDRD) (>89) Glucose (70-100) mg/dL Glycated Hemoglobin 5.5 (4.6-6.2) % Estim Average Glucose 111 H (70-100) Calcium (8.5-10.3) mg/dL Total Bilirubin (0.2-1.0) mg/dL AST (10-42) IU/L ALT (10-60) IU/L Alkaline Phosphatase (42-121) IU/L Total Protein (6.7-8.2) g/dL Albumin (3.2-5.5) g/dL Globulin (2.1-4.2) g/dL Albumin/Globulin Ratio (1.0-2.2) Triglycerides ( - 149) mg/dL Cholesterol ( - 199) mg/dL LDL Cholesterol, Calc ( - 129) mg/dL VLDL Cholesterol mg/dL HDL Cholesterol (60 - ) mg/dL LDL/HDL Ratio (<4.4) Cholesterol/HDL Ratio (<4.4) Amylase 86 (28-100) U/L Lipase (22-51) U/L 11/18/17 11/17/17 11/17/17 Range/Units 06:40 16:45 16:45 WBC (4.8-10.8) x10^3/uL RBC (4.20-5.40) 10^6/uL Hgb (12.0-16.0) g/dL Hct (37.0-47.0) % MCV (81.0-99.0) fL MCH (27.0-31.0) pg MCHC (32.0-36.0) g/dL RDW (12.0-15.0) % Plt Count (130-450) 10^3/uL MPV (7.9-10.8) fL Neut # (Auto) Lymph # (Auto) Logan # (Auto) Eos # (Auto) Baso # (Auto) Absolute Nucleated RBC Total Counted Band Neuts % (Manual) (0 - 10) % Reactive Lymphs % (Man) % Abnorm Lymph % (Manual) % Metamyelocytes % ( - 0) % Nucleated RBC % Neutrophils # (Manual) (1.5-6.6) 10^3/uL Lymphocytes # (Manual) (1.5-3.5) 10^3/uL Monocytes # (Manual) (0.0-1.0) 10^3/uL Eosinophils # (Manual) (0-0.7) 10^3/uL Basophils # (Manual) (0-0.1) 10^3/uL Differential Comment Platelet Estimate (NORMAL) Platelet Morphology (NORMAL) RBC Morph Micro Appear (NORMAL) PT 14.1 H (9.9-12.6) secs INR 1.3 H (0.8-1.2) Sodium 136 134 L (135-145) mmol/L Potassium 3.4 L 3.4 L (3.5-5.0) mmol/L Chloride 105 100 L (101-111) mmol/L Carbon Dioxide 20 L 21 (21-32) mmol/L Anion Gap 11.0 13.0 (6-13) BUN 19 21 H (6-20) mg/dL Creatinine 0.7 0.8 (0.4-1.0) mg/dL Estimated GFR (MDRD) 84 L 72 L (>89) Glucose 160 H 90 (70-100) mg/dL Glycated Hemoglobin (4.6-6.2) % Estim Average Glucose (70-100) Calcium 8.8 9.2 (8.5-10.3) mg/dL Total Bilirubin 0.5 (0.2-1.0) mg/dL AST 27 (10-42) IU/L ALT 11 (10-60) IU/L Alkaline Phosphatase 96 (42-121) IU/L Total Protein 8.0 (6.7-8.2) g/dL Albumin 3.3 (3.2-5.5) g/dL Globulin 4.7 H (2.1-4.2) g/dL Albumin/Globulin Ratio 0.7 L (1.0-2.2) Triglycerides 151 H ( - 149) mg/dL Cholesterol 216 H ( - 199) mg/dL LDL Cholesterol, Calc 156 H ( - 129) mg/dL VLDL Cholesterol 30 mg/dL HDL Cholesterol 30 L (60 - ) mg/dL LDL/HDL Ratio 5.2 (<4.4) Cholesterol/HDL Ratio 7.2 (<4.4) Amylase (28-100) U/L Lipase 157 H (22-51) U/L 11/17/ Range/Units 16:45 WBC 7.9 (4.8-10.8) x10^3/uL RBC 2.96 L (4.20-5.40) 10^6/uL Hgb 9.3 L (12.0-16.0) g/dL Hct 28.0 L (37.0-47.0) % MCV 94.7 (81.0-99.0) fL MCH 31.6 H (27.0-31.0) pg MCHC 33.3 (32.0-36.0) g/dL RDW 17.7 H (12.0-15.0) % Plt Count 431 (130-450) 10^3/uL MPV 7.7 L (7.9-10.8) fL Neut # (Auto) Not Reportable Lymph # (Auto) Not Reportable Logan # (Auto) Not Reportable Eos # (Auto) Not Reportable Baso # (Auto) Not Reportable Absolute Nucleated RBC Not Reportable Total Counted 100 Band Neuts % (Manual) 11 H (0 - 10) % Reactive Lymphs % (Man) 1 % Abnorm Lymph % (Manual) 0 % Metamyelocytes % 1 H ( - 0) % Nucleated RBC % Not Reportable Neutrophils # (Manual) 6.2 (1.5-6.6) 10^3/uL Lymphocytes # (Manual) 0.9 L (1.5-3.5) 10^3/uL Monocytes # (Manual) 0.6 (0.0-1.0) 10^3/uL Eosinophils # (Manual) 0.0 (0-0.7) 10^3/uL Basophils # (Manual) 0.0 (0-0.1) 10^3/uL Differential Comment MANUAL DIFFERENTIAL Platelet Estimate NORMAL (130-450,000) (NORMAL) Platelet Morphology NORMAL APPEARANCE (NORMAL) RBC Morph Micro Appear 2+ POIKILOCYTOSIS (NORMAL) PT (9.9-12.6) secs INR (0.8-1.2) Sodium (135-145) mmol/L Potassium (3.5-5.0) mmol/L Chloride (101-111) mmol/L Carbon Dioxide (21-32) mmol/L Anion Gap (6-13) BUN (6-20) mg/dL Creatinine (0.4-1.0) mg/dL Estimated GFR (MDRD) (>89) Glucose (70-100) mg/dL Glycated Hemoglobin (4.6-6.2) % Estim Average Glucose (70-100) Calcium (8.5-10.3) mg/dL Total Bilirubin (0.2-1.0) mg/dL AST (10-42) IU/L ALT (10-60) IU/L Alkaline Phosphatase (42-121) IU/L Total Protein (6.7-8.2) g/dL Albumin (3.2-5.5) g/dL Globulin (2.1-4.2) g/dL Albumin/Globulin Ratio (1.0-2.2) Triglycerides ( - 149) mg/dL Cholesterol ( - 199) mg/dL LDL Cholesterol, Calc ( - 129) mg/dL VLDL Cholesterol mg/dL HDL Cholesterol (60 - ) mg/dL LDL/HDL Ratio (<4.4) Cholesterol/HDL Ratio (<4.4) Amylase (28-100) U/L Lipase (22-51) U/L ABX Reporting Has patient been on IV antibiotics over the past 48 hours?: No Assessment/Plan - Problem List (1) Brain metastases Impression: A head MRI was completed today as the patient had a left facial droop and dysphagia. It shows lesions that resemble metastatic tumors. I have paged [facility] neurology to do a phone consult as to the best plan/treatment in this case. Plan: Continue to monitor mental status, worsening condition. (2) Cerebrovascular accident (CVA) Impression: I spoke to Dr. Marin-[facility] neurology to review head MRI results. They are happy to see her if needed as outpatient, but are no further recommendations or further imaging that they would recommend. Imaging matches symptoms such as dysphagia and a left facial droop. Plan: ASA daily, high dose statin, thickened liquids. Qualifiers: CVA mechanism: unspecified Qualified Code(s): I63.9 - Cerebral infarction, unspecified (3) Facial paralysis on left side Impression: The patient continues to have this and relates it to her recent tooth pain for which she saw her dentist. She also has left facial numbness all the way into her neck. Pelayo's palsey has been ruled out. Plan: Continue to monitor. (4) Metastatic non-small cell lung cancer Impression: The patient is seen by our [facility] oncology for this and it is considered to be with mets. Arlyn Garcia NP was conveniently in the hallway this morning and was alerted to this admission. She did a social visit to support the patient. Plan: Continue treatment, keep [facility] updated if the patient is here through Saturday. (5) COPD (chronic obstructive pulmonary disease) Impression: The patient admits to a smoking history and uses chronic inhalers at home. Preliminary echo results show elevated right heart pressures which coincides with her lung cancer. Plan: Monitor respiratory status. Qualifiers: COPD type: emphysema Emphysema type: unspecified Qualified Code(s): J43.9 - Emphysema, unspecified (6) Hyperlipidemia Impression: As part of the CVA acute treatment, the patient has been placed on high dose statin, which can be reduced after her 3 day inpatient stay to just 40 mg daily. Labs show elevated lipid panel, elevated triglycerides. Plan: Continue med. Qualifiers: Hyperlipidemia type: unspecified Qualified Code(s): E78.5 - Hyperlipidemia, unspecified
[2017-11-18] MEDS: ATORVASTATIN 40 MG TABLET PO SCH (21:42)
[2017-11-19] MEDS: DEXTROSE 5%-0.9% NACL 1,000 ML IV SCH (01:26)
[2017-11-19] MEDS: MORPHINE 2 MG/ML CARPUJECT IVP PRN ×10 (03:55→22:11)
[2017-11-19] MEDS: AMOXICILLIN 500 MG PO SCH ×3 (05:56→20:40)
[2017-11-19] MEDS: SODIUM CHLORIDE FLUSH 0.9% 10 ML SYRINGE IVP PRN ×6 (05:56→22:11)
[2017-11-19] MEDS: PANTOPRAZOLE 40 MG VIAL IVP SCH (05:56)
[2017-11-19 06:48] LABS: BASOPHILS % (AUTO) 0.2 %; HGB - HEMOGLOBIN 7.6 g/dL (12.0-16.0); LYMPHOCYTES # (AUTO) 0.9 10^3/uL (1.5-3.5); LYMPHOCYTES % (AUTO) 9.9 %; MEAN CORPUSCULAR HEMOGLOBIN 32.4 pg (27.0-31.0); MEAN CORPUSCULAR HGB CONC 34.2 g/dL (32.0-36.0); MEAN CORPUSCULAR VOLUME 94.8 fL (81.0-99.0); MEAN PLATELET VOLUME 7.5 fL (7.9-10.8); MONOCYTES # (AUTO) 1.6 10^3/uL (0.0-1.0); MONOCYTES % (AUTO) 16.6 %; NEUTROPHILS # (AUTO) 6.9 10^3/uL (1.5-6.6); NEUTROPHILS % (AUTO) 73.3 %; PLT - PLATELET COUNT 373 10^3/uL (130-450); RED BLOOD COUNT 2.35 10^6/uL (4.20-5.40); WHITE BLOOD COUNT 9.4 x10^3/uL (4.8-10.8)
[2017-11-19 07:00] LABS: CALCIUM 8.7 mg/dL (8.5-10.3); CREATININE 0.5 mg/dL (0.4-1.0)
[2017-11-19] MEDS: predniSONE 20 MG TABLET PO SCH (08:00)
[2017-11-19] MEDS: POLYETHYLENE GLYCOL 3350 17 GM PACKET PO SCH (08:01)
[2017-11-19] MEDS: SODIUM CHLORIDE FLUSH 0.9% 10 ML SYRINGE IVP SCH ×2 (08:01→15:38)
[2017-11-19] MEDS: HEPARIN 5,000 UNIT/ML VIAL SUBQ SCH ×2 (08:01→20:39)
[2017-11-19] MEDS: ASPIRIN EC 325 MG TABLET PO SCH (08:07)
[2017-11-19] MEDS ORDERED: POTASSIUM CHLOR 20 MEQ/100 ML 20 MEQ/100 ML BAG IV ONE (09:00)
[2017-11-19 09:34] LABS: MEAN RETIC VALUE 130.7; RED BLOOD COUNT 2.31 10^6/uL (4.20-5.40)
[2017-11-19 09:46] LABS: % IRON SATURATION 11 % (20-50); IRON 28 ug/dL (28-170); TOTAL IRON BINDING CAPACITY 249 ug/dL (250-450); TRANSFERRIN 178 mg/dL (192-382)
[2017-11-19] MEDS: D5.45NS W/20 MEQ KCL 1,000 ML IV SCH ×2 (09:52→20:39)
[2017-11-19] MEDS: FERROUS SULFATE 325 MG TABLET PO SCH (12:24)
--- NOTE | 2017-11-19 14:30 | PROVIDER PROGRESS NOTE ---
Subjective - Prog Note Date Prog Note Date: 11/19/17 - Subjective Pt reports feeling: No change Subjective: pt report she has lots of pain at her back since she was diagnosis of lung caner. Discuss with pt for her d/c plan, and current medical conditions i ncluding her MRI findings. pt report she need some time to think about her plan. pt report she did have radiation palliative therapy for her brain mass before. Current Medications - Current Medications Current Medications: Active Medications Aspirin (Ecotrin) 325 mg PO DAILY [facility] Last Admin: 11/19/17 08:07 Dose: 325 mg Atorvastatin Calcium (Lipitor) 80 mg PO QPM [facility] Last Admin: 11/18/17 21:42 Dose: 80 mg Ferrous Sulfate (Feosol) 325 mg PO DAILYWM [facility] Last Admin: 11/19/17 12:24 Dose: 325 mg Heparin Sodium (Beef Lung) () 30 - 50 unit IVP PRN PRN PRN Reason: Port Protocol (<24 hours) Last Admin: 11/18/17 06:31 Dose: 50 unit Heparin Sodium (Porcine) () 5,000 unit SUBQ BID [facility] Last Admin: 11/19/17 08:01 Dose: Not Given Potassium Chloride/Dextrose/Sod Cl (D5.45ns W/20 Meq Kcl) 1,000 mls @ 83.333 mls/hr IV .Q12H [facility] Last Admin: 11/19/17 09:52 Dose: 83.333 mls/hr Morphine Sulfate (Morphine (Carpuject)) 2 mg IVP Q2HR PRN PRN Reason: Pain 8 to 10 Last Admin: 11/19/17 16:44 Dose: 2 mg Ondansetron HCl (Zofran Inj) 4 mg IVP Q6HR PRN PRN Reason: Nausea / Vomiting Pantoprazole Sodium (Protonix) 40 mg IVP QDAC [facility] Last Admin: 11/19/17 05:56 Dose: 40 mg Amoxicillin 500 Mg (Tab) 1 each PO TID [facility] Last Admin: 11/19/17 13:09 Dose: 1 each Polyethylene Glycol (Miralax) 17 gm PO DAILY [facility] Last Admin: 11/19/17 08:01 Dose: Not Given Prednisone (Deltasone) 60 mg PO DAILYWM [facility] Stop: 11/24/17 07:59 Last Admin: 11/19/17 08:00 Dose: 60 mg Sodium Chloride (Normal Saline Flush 0.9%) 10 ml IVP PRN PRN PRN Reason: NEEDED PER PROVIDER ORDERS Last Admin: 11/19/17 14:35 Dose: 10 ml Sodium Chloride (Normal Saline Flush 0.9%) 10 ml IVP 0100,0900,1700 [facility] Last Admin: 11/19/17 15:38 Dose: Not Given Sodium Chloride (Normal Saline Flush 0.9%) 20 ml IVP PRN PRN PRN Reason: After Blood Draw Last Admin: 11/18/17 06:31 Dose: 20 ml Albuterol Sulf [Ventolin Hfa Inhaler] 1 - 2 puffs INH Q4HR PRN 09/29/17 Gabapentin 300 mg PO QPM 09/29/17 tiZANidine [Zanaflex] 4 mg PO TID PRN 09/29/17 Budesonide/Formoterol Fumarate [Symbicort 160-4.5 Mcg Inhaler] 1 puffs IH BID #0 10/02/17 Potassium Chloride [K-Dur] 20 meq PO BIDWM 10/10/17 Objective - Vital Signs/Intake & Output Reviewed Vital Signs: Yes Vital Signs: Vital Signs x48h Temp Pulse Resp BP Pulse Ox 11/19/17 08:00 36.8 C 76 18 124/16 L 96 Intake & Output: Intake & Output 11/16/17 11/17/17 11/18/17 11/19/17 23:59 23:59 23:59 23:59 Intake Total 1000 2243 1281.667 Output Total 550 650 Balance 1000 1693 631.667 - Objective General Appearance: positive: No acute distress, Alert. negative: Lethargic Eyes Bilateral: positive: Normal inspection, PERRL, No lid inflammation, Conjunctivae nml ENT: positive: ENT inspection nml, Pharynx nml, No signs of dehydration. negative: Purulent nasal drainage, Pharyngeal erythema, Oral lesions Neck: positive: Nml inspection, Thyroid nml, No JVD, Trachea midline. negative: Thyromegaly, Lymphadenopathy (R), Lymphadenopathy (L), Stiff neck, Swelling/bruising, Tracheal deviation Respiratory: positive: Chest non-tender, No respiratory distress, Breath sounds nml. negative: Wheezes, Rales, Rhonchi Cardiovascular: positive: Regular rate & rhythm, No murmur, No gallop. negative: Irregularly irregular, Extrasystoles, Tachycardia, Bradycardia, JVD present, Systolic murmur, Diastolic murmur Peripheral Pulses: 2+ Radial (R), 2+ Radial (L), 2+ Dorsalis pedis (R), 2+ Dorsalis pedis (L) Abdomen: positive: Non-tender, No organomegaly, Nml bowel sounds, No distention. negative: Tenderness, Guarding, Rebound Back: positive: Nml inspection. negative: CVA tenderness (R), CVA tenderness (L) Skin: positive: Color nml, No rash, Warm, Dry. negative: Cyanosis, Diaphoresis, Pallor Extremities: positive: Non-tender, Nml appearance. negative: Calf tenderness, Joint swelling, Kristie's sign/cords Neurologic/Psychiatric: positive: Oriented x3, Mood/affect nml, Weakness, Facial droop. negative: Sensory loss, Slurred/abnml speech - Lab Results Fish Bones: 11/19/17 06:02 11/19/17 06:02 Other Labs: Lab Results x24hrs 11/19/17 11/19/17 11/19/17 Range/Units 09:21 09:21 09:21 WBC (4.8-10.8) x10^3/uL RBC 2.31 L (4.20-5.40) 10^6/uL Hgb (12.0-16.0) g/dL Hct (37.0-47.0) % MCV (81.0-99.0) fL MCH (27.0-31.0) pg MCHC (32.0-36.0) g/dL RDW (12.0-15.0) % Plt Count (130-450) 10^3/uL MPV (7.9-10.8) fL Reticulocyte % (Auto) 3.44 H (0.5-2.3) % Neut # (Auto) (1.5-6.6) 10^3/uL Lymph # (Auto) (1.5-3.5) 10^3/uL [place] # (Auto) (0.0-1.0) 10^3/uL Eos # (Auto) (0.0-0.7) 10^3/uL Baso # (Auto) (0.0-0.1) 10^3/uL Absolute Nucleated RBC x10^3/uL Nucleated RBC % /100WBC Absolute Retic 0.079 (0.020-0.110) 10^6/uL Sodium (135-145) mmol/L Potassium (3.5-5.0) mmol/L Chloride (101-111) mmol/L Carbon Dioxide (21-32) mmol/L Anion Gap (6-13) BUN (6-20) mg/dL Creatinine (0.4-1.0) mg/dL Estimated GFR (MDRD) (>89) Glucose (70-100) mg/dL Calcium (8.5-10.3) mg/dL Iron 28 (28-170) ug/dL TIBC 249 L (250-450) ug/dL % Saturation 11 L (20-50) % Transferrin 178 L (192-382) mg/dL Lactate Dehydrogenase 1019 H (91-225) IU/L 11/19/17 11/19/17 Range/Units 06:02 06:02 WBC 9.4 (4.8-10.8) x10^3/uL RBC 2.35 L (4.20-5.40) 10^6/uL Hgb 7.6 L (12.0-16.0) g/dL Hct 22.3 L (37.0-47.0) % MCV 94.8 (81.0-99.0) fL MCH 32.4 H (27.0-31.0) pg MCHC 34.2 (32.0-36.0) g/dL RDW 18.0 H (12.0-15.0) % Plt Count 373 (130-450) 10^3/uL MPV 7.5 L (7.9-10.8) fL Reticulocyte % (Auto) (0.5-2.3) % Neut # (Auto) 6.9 H (1.5-6.6) 10^3/uL Lymph # (Auto) 0.9 L (1.5-3.5) 10^3/uL [place] # (Auto) 1.6 H (0.0-1.0) 10^3/uL Eos # (Auto) 0.0 (0.0-0.7) 10^3/uL Baso # (Auto) 0.0 (0.0-0.1) 10^3/uL Absolute Nucleated RBC 0.01 x10^3/uL Nucleated RBC % 0.1 /100WBC Absolute Retic (0.020-0.110) 10^6/uL Sodium 138 (135-145) mmol/L Potassium 3.0 L (3.5-5.0) mmol/L Chloride 108 (101-111) mmol/L Carbon Dioxide 21 (21-32) mmol/L Anion Gap 9.0 (6-13) BUN 12 (6-20) mg/dL Creatinine 0.5 (0.4-1.0) mg/dL Estimated GFR (MDRD) 124 (>89) Glucose 108 H (70-100) mg/dL Calcium 8.7 (8.5-10.3) mg/dL Iron (28-170) ug/dL TIBC (250-450) ug/dL % Saturation (20-50) % Transferrin (192-382) mg/dL Lactate Dehydrogenase (91-225) IU/L ABX Reporting Has patient been on IV antibiotics over the past 48 hours?: No Assessment/Plan - Problem List (1) Cerebrovascular accident (CVA) Impression: (1) Brain metastases Impression: 11/19 I discussed with pt about her MRI finding. she report she did have palliative radiation therapy in her brain masses before, after she had diagnosis of lung cancer and had chemotherapy. she report her chemotherapy was hold now because the serious side effect. [facility] oncologist provider followed up pt. she report she had severe pain since she was diagnosis of lung cancer. at this afternoon, pt report to pediatric social worker, she request palliative care consult first, then may remove to hospice care order palliative care consult and called A head MRI was completed today as the patient had a left facial droop and dysphagia. It shows lesions that resemble metastatic tumors. I have paged [facility] neurology to do a phone consult as to the best plan/treatment in this case. Plan: Continue to monitor mental status, worsening condition. (2) Cerebrovascular accident (CVA) Impression: 11/19 ASA daily, high dose statin, continue PT/OT dysphagia diet I spoke to Dr. Marin-[facility] neurology to review head MRI results. They are happy to see her if needed as outpatient, but are no further recommendations or further imaging that they would recommend. Imaging matches symptoms such as dysphagia and a left facial droop. Plan: ASA daily, high dose statin, thickened liquids. (3) Facial paralysis on left side Impression: The patient continues to have this and relates it to her recent tooth pain for which she saw her dentist. She also has left facial numbness all the way into her neck. Pelayo's palsey has been ruled out. Plan: Continue to monitor. (4) Metastatic non-small cell lung cancer Impression: The patient is seen by our [facility] clinic oncology for this and it is considered to be with mets. Arlyn Garcia NP was conveniently in the hallway this morning and was alerted to this admission. She did a social visit to support the patient. Plan: Continue treatment, keep [facility] updated if the patient is here through Saturday. (5) COPD (chronic obstructive pulmonary disease) Impression: stable The patient admits to a smoking history and uses chronic inhalers at home. Preliminary echo results show elevated right heart pressures which coincides with her lung cancer. Plan: Monitor respiratory status. (6) Hyperlipidemia Impression: As part of the CVA acute treatment, the patient has been placed on high dose statin, which can be reduced after her 3 day inpatient stay to just 40 mg daily. Labs show elevated lipid panel, elevated triglycerides. Plan: Continue med. (7) anemia HGB 7.6. nurse and pt denies GI bleeding. Unknown exact etiology it may be caused by metastatic cancer to the bone marrow, order anemia study, will follow up daily lab monitor (8) hypokelemia replace of potassium and IVF of D5 1/2 NS with 20 mequ K lab monitor Qualifiers: CVA mechanism: unspecified Qualified Code(s): I63.9 - Cerebral infarction, unspecified
[2017-11-19 14:39] LABS: FERRITIN 238.4 ng/mL (11.0-306.8)
[2017-11-19] MEDS: tiZANidine 4 MG TABLET PO PRN (20:38)
[2017-11-19] MEDS: GABAPENTIN 300 MG CAPSULE PO SCH (20:38)
[2017-11-19] MEDS: oxyCODONE 5 MG TABLET PO PRN (20:38)
[2017-11-19] MEDS: ATORVASTATIN 40 MG TABLET PO SCH (20:38)
[2017-11-19] MEDS ORDERED: HYDROmorphone 1 MG/ML CARPUJECT IVP STA (22:18)
[2017-11-20] MEDS: SODIUM CHLORIDE FLUSH 0.9% 10 ML SYRINGE IVP SCH ×3 (00:13→20:10)
[2017-11-20] MEDS: PANTOPRAZOLE 40 MG VIAL IVP SCH (05:32)
[2017-11-20] MEDS: AMOXICILLIN 500 MG PO SCH ×3 (05:33→22:55)
[2017-11-20] MEDS: MORPHINE 2 MG/ML CARPUJECT IVP PRN ×3 (05:33→10:00)
[2017-11-20] MEDS: SODIUM CHLORIDE FLUSH 0.9% 10 ML SYRINGE IVP PRN (05:33)
[2017-11-20 06:17] LABS: BASOPHILS % (AUTO) 0.2 %; HGB - HEMOGLOBIN 8.2 g/dL (12.0-16.0); LYMPHOCYTES % (AUTO) 10.8 %; MEAN CORPUSCULAR HEMOGLOBIN 32.4 pg (27.0-31.0); MEAN CORPUSCULAR VOLUME 95.3 fL (81.0-99.0); MEAN PLATELET VOLUME 7.5 fL (7.9-10.8); MONOCYTES # (AUTO) 1.8 10^3/uL (0.0-1.0); MONOCYTES % (AUTO) 20.1 %; NEUTROPHILS # (AUTO) 6.3 10^3/uL (1.5-6.6); NEUTROPHILS % (AUTO) 68.9 %; PLT - PLATELET COUNT 379 10^3/uL (130-450); RED BLOOD COUNT 2.54 10^6/uL (4.20-5.40); RED CELL DISTRIBUTION WIDTH 19.1 % (12.0-15.0); WHITE BLOOD COUNT 9.1 x10^3/uL (4.8-10.8)
[2017-11-20 06:20] LABS: CALCIUM 8.9 mg/dL (8.5-10.3); CREATININE 0.6 mg/dL (0.4-1.0)
[2017-11-20 06:33] LABS: DIFFERENTIAL COMMENT MANUAL=AUTO DIFF; PLATELET ESTIMATE, MANUAL NORMAL (130-450,000) (NORMAL); RBC MORPHOLOGY (MULTIPLE) NORMAL APPEARANCE (NORMAL)
[2017-11-20] MEDS: predniSONE 20 MG TABLET PO SCH (07:57)
[2017-11-20] MEDS: FERROUS SULFATE 325 MG TABLET PO SCH (07:57)
[2017-11-20] MEDS ORDERED: POTASSIUM CHLORIDE 20 MEQ TABLET PO SCH (08:12)
[2017-11-20] MEDS: oxyCODONE 5 MG TABLET PO PRN ×2 (08:32→12:54)
[2017-11-20] MEDS: HEPARIN 5,000 UNIT/ML VIAL SUBQ SCH ×2 (08:33→20:21)
[2017-11-20] MEDS: ASPIRIN EC 325 MG TABLET PO SCH (08:33)
[2017-11-20] MEDS: D5.45NS W/20 MEQ KCL 1,000 ML IV SCH ×2 (08:38→20:13)
[2017-11-20] MEDS: POLYETHYLENE GLYCOL 3350 17 GM PACKET PO SCH (08:43)
[2017-11-20] MEDS: HYDROmorphone 0.5 MG/0.5 ML SYRINGE IVP PRN ×4 (11:06→20:13)
--- NOTE | 2017-11-20 13:56 | CONSULTATION NOTE ---
Palliative Care Consultation - Referral Referring Provider: Bertrand CASH Time of Visit: [id number]; [id number] Referral setting: Hospitalized patient Referral Reason: Metastatic small cell lung cancer/uncontrolled pain/Goals of Care - Information Sources Records reviewed: RN notes reviewed, Previous records reviewed History/Review of Systems obtained from: Patient Exam limitations: Clinical condition (patient with mild cognitive deficits; difficulty tracking conversation and STM isses) - History of Present Illness Brief History of Present Illness: This is a 66-year-old woman with a diagnosis of small cell lung cancer, extensive stage. She was originally diagnosed when she developed increasing back pain, was evaluated in the ER and found on a chest CT to have a perihilar and left lower lobe lung mass with extensive mediastinal lymphadenopathy. The original left hilar mass measured 4.2 x 5.6 x 7.5 cm and encased the left lower lobe pulmonary vein causing near complete occlusion. She also had 2 other p eripheral pleural-based masses within the left lower lobe of the lung. Unfortunately she had a burst fracture identified at T11 with retropulsion of fragments into the spinal cord. She underwent a T11 corpectomy with posterior fusion T9-T10/T12-L1 and cage reconstruction at [facility] on 11/29/2016. 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 She received first-line chemotherapy with 6 cycles of carboplatinum and etoposide until March 2017. Her course was complicated by an acute hospitalization from 05/22 - 05/25 with hypoxic respiratory failure now requiring supplemental oxygen, as well as an exacerbation of her underlying COPD.She received consolidative thoracic radiation therapy, as well as prophylactic cranial irradiation. She received this through Dr. enid hook at [facility], and completed this in June 2017. She was started recently on second line chemotherapy, tolerated it poorly with severe nausea and pancytopenia, and has continued to decline functionally and with increasing difficulty with nutrition. This admit to [facility], was proceeded with 5 days of increased difficulty with swallowing, left side paralysis of her face, now presents with increased difficulty with eating. She has no other residual left hemiplegia noted. She did have a brain MRI, this has caused quite a bit of confusion, whether she has brain metastases, in follow-up with oncologist and radiation oncologist suggested most likely not. She did have prophylactic radiation which does decrease her risk, and most likely her deficits are related to the sequela of stroke. Patient does report she has had increased headaches so for for 5 days, dull that come and go, they do decrease with her intermittent oxycodone and IV pain meds here in the hospital. She does appear quite frail, she has been managing at home, and is fiercely independent. She does understand her cancer is serious, and concern regarding her ability to manage her current level of functional decline, and cognitive difficulties, has led to the discussion of more of a focus on comfort measures and possible hospice referral. Patient does have a POLST, with comfort focused treatments, but still at this point if there were further treatments available would want to pursue those. She does present with escalating pain, she does have chronic back pain which she has used oxycodone on intermittent dosing schedule, anywhere from 3 oxycodone 5 mg tabs up to 9 tabs and 24 hours. Over the last few days her increased pain is more focused on her left lower thoracic lung area, increased tenderness with touch and deep inspiration, and needing more pain medication. Patient had received palliative care referral from oncologist back and April, patient had declined services at that point in time. Palliative care meeting with patient, social and human services assistant, and friend Blayne to establish goals of care. Medical/Surgical History - Past Medical History Cardiovascular: reports: High cholesterol, Murmur Respiratory: reports: COPD, Emphysema, Shortness of breath Neuro: reports: Headache/migraine, Peripheral neuropathy Endocrine/Autoimmune: reports: None GI: reports: GERD, Ulcers : reports: None Psych: reports: Anxiety Musculoskeletal: reports: Rheumatoid arthritis, Chronic back pain Derm: reports: None MRSA Hx?: No Other Past Medical History: currently receiving chemo for lung cancer. - Past Surgical History General: reports: Appendectomy, Other Ortho: reports: Spine surgery, Other /TRAINING CONSULTANT: reports: section, 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 Cardiovascular: reports: Other (portacath) HEENT: reports: Tonsil/Adenoidectomy - Substance History Use: Uses substance without health or social issues: Tobacco (continues to smoke up to 5 cigerettes a day; having withdrawels), Other Social History - Living Situation Living arrangement: At home Living Situation: Alone Support System: Patient lives in senior [facility] in [place]. She is supported by her friend Baljeet Aponte, they have known each other 6-7 years. They met at a [employer] show. She has been at caregiver, is very familiar with Benji pritchett. From the records she is estranged from her daughter. She is actually been manag ing fairly independently, with just some transportation assistance. Though Blayne did help her originally when she had her back surgery, actually with assisting with her care needs. She presents is somewhat scattered, difficulty tracking conversation, and somewhat unrealistic about her current capabilities. Family History - Family History Family History: Mother: (father prostate cancer), Father: , Cancer Medications/Allergies - Medications Active Medication List: Active Medications Aspirin (Ecotrin) 325 mg PO DAILY REPLACED BY [facility] Last Admin: 11/20/17 08:33 Dose: 325 mg Atorvastatin Calcium (Lipitor) 80 mg PO QPM REPLACED BY [facility] Last Admin: 11/19/17 20:38 Dose: 80 mg Ferrous Sulfate (Feosol) 325 mg PO DAILYWM REPLACED BY [facility] Last Admin: 11/20/17 07:57 Dose: 325 mg Gabapentin (Neurontin) 300 mg PO QPM REPLACED BY [facility] Last Admin: 11/19/17 20:38 Dose: 300 mg Heparin Sodium (Beef Lung) () 30 - 50 unit IVP PRN PRN PRN Reason: Port Protocol (<24 hours) Last Admin: 11/18/17 06:31 Dose: 50 unit Heparin Sodium (Porcine) () 5,000 unit SUBQ BID REPLACED BY [facility] Last Admin: 11/20/17 08:33 Dose: 5,000 unit Hydromorphone HCl (Dilaudid Inj Syringe) 0.5 mg IVP Q2H PRN PRN Reason: PAIN Last Admin: 11/20/17 13:39 Dose: 0.5 mg Potassium Chloride/Dextrose/Sod Cl (D5.45ns W/20 Meq Kcl) 1,000 mls @ 83.333 mls/hr IV .Q12H JATIN Last Admin: 11/20/17 08:38 Dose: 83.333 mls/hr Lorazepam (Ativan Inj (Vial)) 0.5 mg IVP Q2H PRN PRN Reason: Anxiety Ondansetron HCl (Zofran Inj) 4 mg IVP Q6HR PRN PRN Reason: Nausea / Vomiting Last Admin: 11/19/17 20:45 Dose: 4 mg Oxycodone HCl (Roxicodone) 5 mg PO Q4H PRN PRN Reason: PAIN Last Admin: 11/20/17 12:54 Dose: 5 mg Pantoprazole Sodium (Protonix) 40 mg IVP QDAC REPLACED BY [facility] Last Admin: 11/20/17 05:32 Dose: 40 mg Amoxicillin 500 Mg (Tab) 1 each PO TID REPLACED BY [facility] Last Admin: 11/20/17 05:33 Dose: 1 each Polyethylene Glycol (Miralax) 17 gm PO DAILY REPLACED BY [facility] Last Admin: 11/20/17 08:43 Dose: Not Given Prednisone (Deltasone) 60 mg PO DAILYWM REPLACED BY [facility] Stop: 11/24/17 07:59 Last Admin: 11/20/17 07:57 Dose: 60 mg Sodium Chloride (Normal Saline Flush 0.9%) 10 ml IVP PRN PRN PRN Reason: NEEDED PER PROVIDER ORDERS Last Admin: 11/20/17 05:33 Dose: 40 ml Sodium Chloride (Normal Saline Flush 0.9%) 10 ml IVP 0100,0900,1700 REPLACED BY [facility] Last Admin: 11/20/17 08:44 Dose: Not Given Sodium Chloride (Normal Saline Flush 0.9%) 20 ml IVP PRN PRN PRN Reason: After Blood Draw Last Admin: 11/18/17 06:31 Dose: 20 ml Tizanidine HCl (Zanaflex) 4 mg PO TID PRN PRN Reason: Spasms Last Admin: 11/19/17 20:38 Dose: 4 mg Albuterol Sulf [Ventolin Hfa Inhaler] 1 - 2 puffs INH Q4HR PRN 09/29/17 Gabapentin 300 mg PO QPM 09/29/17 tiZANidine [Zanaflex] 4 mg PO TID PRN 09/29/17 Budesonide/Formoterol Fumarate [Symbicort 160-4.5 Mcg Inhaler] 1 puffs IH BID #0 10/02/17 Potassium Chloride [K-Dur] 20 meq PO BIDWM 10/10/17 - Allergies Allergies/Adverse Reactions: Allergies Allergy/AdvReac Type Severity Reaction Status Date / Time Sulfa (Sulfonamide Allergy Severe Edema Verified 11/17/17 15:48 Antibiotics) epinephrine AdvReac palpitation Verified 11/17/17 15:48 s Review of Systems - Constitutional Constitutional: reports: Fatigue, Poor appetite, Weight loss - Eyes Eyes: reports: Vision loss, Other (left eye unable to close; dry and tearing) - Ears, Nose & Throat Ears, Nose & Throat: reports: Dental decay, Dry mouth - Cardiovascular Cardiovascular: reports: Exertional dyspnea, Decr. exercise tolerance - Respiratory Respiratory: reports: Cough, SOB at rest, SOB with exertion - Gastrointestinal Gastrointestinal: reports: Other (having difficulty finding acceptable food choices with current restrictions). denies: Nausea - Genitourinary Genitourinary: denies: Incontinence - Musculoskeletal Musculoskeletal: reports: Limited range of motion, Muscle weakness, Other (has walker at home in storage) - Integumentary Integumentary: reports: Dryness - Neurological Neurological: reports: General weakness, Headache, Memory problems, Slurred sp eech - Psychiatric Psychiatric: reports: Anxiety - Endocrine Endocrine: reports: Intolerance to cold - Hematologic/Lymphatic Hematologic/Lymphatic: reports: Anemia, Recurrent infections - All Other Systems All Other Systems: reports: Reviewed and negative Physical Exam - Vital Signs Vital Signs: Vital Signs x48h Temp Pulse Resp BP BP Pulse Ox 11/20/17 10:00 36.5 C 16 103/89 H 93 11/20/17 09:53 36.5 C 86 16 103/89 H 93 11/20/17 09:50 36.7 C 87 16 133/82 H 91 L - Physical Exam General Appearance: positive: Moderate distress (related to ongoing uncontrolled pain left side) Eyes Bilateral: positive: Other (left eye unable to close lid with droop; denies vision change) ENT: positive: No signs of dehydration, Other (poor dentition) Neck: positive: Trachea midline, Stiff neck Cardiovascular: positive: Regular rate & rhythm Respiratory: positive: Diminished throughout, Wheezes (wheezes upper airways; uses albuterol nebulizer at home 1-2 x a day with relief), Other (quiet LLL;) Abdomen: positive: Other (flat) Skin: positive: Pallor Extremities: positive: No pedal edema, Other (patient unwilling to get out of bed for me; able to move all extremities; reports has ambulated to BR) Neurologic/Psychiatric: positive: Mood/affect nml, Disoriented to time, Weakness, Facial droop (left side with drooling;) Palliative Care - POLST Patient has POLST: Yes POLST Status: DNR, Comfort Measures Pain: Pain worsening, Location (centralized back "baseline" pain; increased LLL thoracic/chest pain 8/10 prior to medications; reports intermittently doses at home with oxycodone 5 mg 3-9/tabs 24 hours; increasing pain over last few days; has not been on long-acting medication) Tiredness/Fatigue: Severe (7-10) Drowsiness/Sedation: Moderate (4-6) Nausea: None Depression: Mild (1-3) Anxiety: Moderate (4-6) Dyspnea: Severe (7-10) Anorexia: Moderate (4-6) Sleep: Variable sleep pattern Performance Status: Patient reports has been managing independently at home, does do "furniture walking". Has been able to do her own ADLs. Patient is mostly been bedbound since arrival, does appear weak and shaky. We did discuss with her friend Baljeet, she does have access to a walker, they will get this out from storage. Did encourage her to participate with physical therapy just to get a baseline of where she is at. I suspect she overestimates her current debility as far as activity tolerance and mobility. She has been further impacted by her increasing pain, difficulty finding comfortable positions in bed. - Palliative Care Discussion: Patient is feeling overwhelmed, feels like it has been an emotional roller coaster since she has been here. Does understand the seriousness of her illness, is quite clear she does not want any heroic measures and resuscitation and intubation. Her greatest goal is to just get home, though when challenged regarding patient's current functional status, she is quite defensive. We did meet with her friend Baljeet Aponte, and did complete the D POA, she does feel like he would be able to speak for her if she were unable to make any decisions. He has been intermittently involved in her care, including providing personal care after her back surgery. There seems to be some confusion regarding if patient's MRI was defined his brain metastases, or if she has further treatment options. Patient does want to be able to manage at home, for an end-of-life event. We did discuss in the context of what this might look like with Baljeet carmona, including the need for oversight and a primary caregiver. She would want to remain independent for as long as possible, recognizing there would be a point where this would not be practical. She is in the process of applying for shreyas support in the home. This would be expedited if she chose to go on hospice. Patient remains somewhat reticent without a definition about whether she is a candidate for further treatment or not, she reports she would consider at this point, finding out what her options were, and choosing treatment if it were a possibility. Agreement was made, I would follow up with Dr. Li, and attempt to get her answer for this, as this would impact the discharge plan home, with or without hospice. 1330 Did follow-up with Dr. Li, She had looked at the MRI and findings from her hospitalization. She does not feel most likely it is brain metastases, and does feel patient might be a candidate for immunotherapy. She has been too frail and did not tolerate chemotherapy, and most likely will present this to her on an appointment on Saturday. And follow-up with radiation oncology, they were of similar opinion, most likely is not brain metastases, she had prophylactic brain radiation which decreases the risk. She does of course have more bone metastases, could be causing increased pain, and the sequela of her current neurologic findings are most likely related to stroke. In discussing my conversation with her oncologist, patient at this point in time would like to hear what her options are for further treatment, delaying hospice referral. She does understand at some point this would be a reality for her. In the context of patient's current status, she continues to decline both functionally and cognitively, she would not be a candidate for further treatment, and this would also drive a transition to hospice as well. She was in agreement though at this point in time to continue with palliative care for pain and symptom management a nd assistance in navigating her trajectory. Results - Lab Results Lab results reviewed: Yes Fish Bones: 11/20/17 05:43 11/20/17 05:43 Lab and Imaging Results: Lab Results x24hrs 11/20/17 11/20/17 11/19/17 Range/Units 05:43 05:43 09:21 WBC 9.1 (4.8-10.8) x10^3/uL RBC 2.54 L (4.20-5.40) 10^6/uL Hgb 8.2 L (12.0-16.0) g/dL Hct 24.2 L (37.0-47.0) % MCV 95.3 (81.0-99.0) fL MCH 32.4 H (27.0-31.0) pg MCHC 34.0 (32.0-36.0) g/dL RDW 19.1 H (12.0-15.0) % Plt Count 379 (130-450) 10^3/uL MPV 7.5 L (7.9-10.8) fL Neut # (Auto) 6.3 (1.5-6.6) 10^3/uL Lymph # (Auto) 1.0 L (1.5-3.5) 10^3/uL [place] # (Auto) 1.8 H (0.0-1.0) 10^3/uL Eos # (Auto) 0.0 (0.0-0.7) 10^3/uL Baso # (Auto) 0.0 (0.0-0.1) 10^3/uL Absolute Nucleated RBC 0.01 x10^3/uL Band Neuts % (Manual) Not Reportable Abnorm Lymph % (Manual) Not Reportable Nucleated RBC % 0.1 /100WBC Neutrophils # (Manual) Not Reportable Lymphocytes # (Manual) Not Reportable Monocytes # (Manual) Not Reportable Eosinophils # (Manual) Not Reportable Basophils # (Manual) Not Reportable Differential Comment MANUAL=AUTO DIFF Platelet Estimate NORMAL (130-450,000) (NORMAL) RBC Morph Micro Appear NORMAL APPEARANCE (NORMAL) Sodium 135 (135-145) mmol/L Potassium 3.4 L (3.5-5.0) mmol/L Chloride 105 (101-111) mmol/L Carbon Dioxide 21 (21-32) mmol/L Anion Gap 9.0 (6-13) BUN 9 (6-20) mg/dL Creatinine 0.6 (0.4-1.0) mg/dL Estimated GFR (MDRD) 100 (>89) Glucose 96 (70-100) mg/dL Calcium 8.9 (8.5-10.3) mg/dL Ferritin 238.4 (11.0-306.8) ng/mL Vitamin B12 909 (180-914) pg/mL Impression and Recommendations - Palliative Care Impression: This is an unfortunate 66-year-old woman who has been receiving treatment for extensive small cell lung cancer with metastatic disease to the bone. She does present is quite frail, with ongoing functional decline now exacerbated by her recent stroke symptoms, cognitive decline demonstrated by difficulty tracking, word finding, and mild confusion. Concern regarding patient transition home related to safety and ability to manage independently. Patient also presents with progressive left thoracic pain attributed to her cancer, as well as underlying chronic back pain, poorly controlled. Palliative care eliciting patient's goals of care, which at this point in time are to explore further treatment options, and assist with transition to hospice when appropriate, and provide ongoing pain and symptom management support. Recommendations/Counseling Done: 1. Acute on chronic pain secondary pain of neoplastic origin. Would recommend starting MS Contin 15 mg this afternoon, take a late dose this evening, and start twice daily tomorrow. Patient to continue with oxycodone 1-2 tabs every 3 hours for breakthrough pain, and will titrate accordingly. Patient to trial here in the hospital to assure patient's tolerance. Patient is needing high doses of IV and oral pain medication to control her increasing left lung/thoracic pain. Instructed patient to continue with the 300 mg of gabapentin at bedtime, secondary to symptoms of peripheral neuropathy in her lower extremities to augment her pain relief. 2. Weight loss. Patient now presents already is quite thin and cachectic, challenged with meal prep, and now further challenged with swallowing difficulties. Patient is aware needs to continue with a soft diet, has disliked her food choices thus far. This may continue to be a challenge in her home setting. Patient does have underlying anorexia, may benefit in adding Decadron 2-4 mg daily to assist both with appetite and pain relief. 3. CVA resulting in left facial droop. Would recommend prescribing and applying refresh eyedrops 2 drops every 4 hours, she is at high risk for corneal abrasion and complaining of eye discomfort. 4. Generalized weakness. Patient describes ongoing functional decline in the home setting, poor activity tolerance, though has been fiercely independent and managing. Recommend his president visit, will get walker out to use in the home setting, concern regarding balance and safety. 5. Advanced care planning. Family meeting with social and human services assistant Adair Stuart and friend Baljeet Aponte (form completed) , patient, and myself. Counseling was provided regarding the continuum of care including the hospice and hospice benefit. Concern regarding patient's cognitive deficits, and ability to follow through on the complexities relating to her application for shreyas [employer]. At this point in time and clarification with oncologist, patient may still have some treatment options, this will be dependent though on patient's underlying functional performance, and ability to tolerate further treatment. Patient's current goals are to explore if further treatment options available, does understand she is getting closer to transitioning to end-of-life, and would like to be at home if at all possible. Current plan on discharge, will be to home visit patient on Saturday, titrate her pain medications accordingly, and evaluate functional status and coping in her home setting. This may influence oncology recommendations. Time Spent: I 120 minutes spent in counseling regarding patient's goals of care, follow-up regarding treatment plan, family meeting to define the POA and counseling regarding hospice benefit. Coordination of care with hospitalist, HONEY LIQUEFIER, oncologist, radiation oncologist and [facility]. Anticipatory guidance was provided to both patient and D POA.
[2017-11-20] MEDS: LORazepam 2 MG/ML VIAL IVP PRN ×2 (15:46→20:12)
[2017-11-20] MEDS: tiZANidine 4 MG TABLET PO PRN (15:46)
--- NOTE | 2017-11-20 16:23 | PROVIDER PROGRESS NOTE ---
Subjective - Prog Note Date Prog Note Date: 11/20/17 - Subjective Pt reports feeling: No change Subjective: pt report she still has pain. Update new pain meds to pt. pt would like to choose continue cancer therapy undercare of her oncologist. plan d/c home tomorrow and follow up her oncologist closely Current Medications - Current Medications Current Medications: Active Medications Aspirin (Ecotrin) 325 mg PO DAILY [facility] Last Admin: 11/20/17 08:33 Dose: 325 mg Atorvastatin Calcium (Lipitor) 80 mg PO QPM [facility] Last Admin: 11/19/17 20:38 Dose: 80 mg Ferrous Sulfate (Feosol) 325 mg PO DAILYWM [facility] Last Admin: 11/20/17 07:57 Dose: 325 mg Gabapentin (Neurontin) 300 mg PO QPM [facility] Last Admin: 11/19/17 20:38 Dose: 300 mg Heparin Sodium (Beef Lung) () 30 - 50 unit IVP PRN PRN PRN Reason: Port Protocol (<24 hours) Last Admin: 11/18/17 06:31 Dose: 50 unit Heparin Sodium (Porcine) () 5,000 unit SUBQ BID [facility] Last Admin: 11/20/17 08:33 Dose: 5,000 unit Hydromorphone HCl (Dilaudid Inj Syringe) 0.5 mg IVP Q2H PRN PRN Reason: PAIN Last Admin: 11/20/17 15:46 Dose: 0.5 mg Potassium Chloride/Dextrose/Sod Cl (D5.45ns W/20 Meq Kcl) 1,000 mls @ 83.333 mls/hr IV .Q12H [facility] Last Admin: 11/20/17 08:38 Dose: 83.333 mls/hr Lorazepam (Ativan Inj (Vial)) 0.5 mg IVP Q2H PRN PRN Reason: Anxiety Last Admin: 11/20/17 15:46 Dose: 0.5 mg Morphine Sulfate () 15 mg PO BID [facility] Nicotine (Nicoderm) 1 patch TOP DAILY [facility] Ondansetron HCl (Zofran Inj) 4 mg IVP Q6HR PRN PRN Reason: Nausea / Vomiting Last Admin: 11/19/17 20:45 Dose: 4 mg Pantoprazole Sodium (Protonix) 40 mg IVP QDAC [facility] Last Admin: 11/20/17 05:32 Dose: 40 mg Amoxicillin 500 Mg (Tab) 1 each PO TID [facility] Last Admin: 11/20/17 14:00 Dose: 1 each Polyethylene Glycol (Miralax) 17 gm PO DAILY [facility] Last Admin: 11/20/17 08:43 Dose: Not Given Prednisone (Deltasone) 60 mg PO DAILYWM [facility] Stop: 11/24/17 07:59 Last Admin: 11/20/17 07:57 Dose: 60 mg Sodium Chloride (Normal Saline Flush 0.9%) 10 ml IVP PRN PRN PRN Reason: NEEDED PER PROVIDER ORDERS Last Admin: 11/20/17 05:33 Dose: 40 ml Sodium Chloride (Normal Saline Flush 0.9%) 10 ml IVP 0100,0900,1700 [facility] Last Admin: 11/20/17 08:44 Dose: Not Given Sodium Chloride (Normal Saline Flush 0.9%) 20 ml IVP PRN PRN PRN Reason: After Blood Draw Last Admin: 11/18/17 06:31 Dose: 20 ml Tizanidine HCl (Zanaflex) 4 mg PO TID PRN PRN Reason: Spasms Last Admin: 11/20/17 15:46 Dose: 4 mg Albuterol Sulf [Ventolin Hfa Inhaler] 1 - 2 puffs INH Q4HR PRN 09/29/17 Gabapentin 300 mg PO QPM 09/29/17 tiZANidine [Zanaflex] 4 mg PO TID PRN 09/29/17 Budesonide/Formoterol Fumarate [Symbicort 160-4.5 Mcg Inhaler] 1 puffs IH BID #0 10/02/17 Potassium Chloride [K-Dur] 20 meq PO BIDWM 10/10/17 Objective - Vital Signs/Intake & Output Reviewed Vital Signs: Yes Vital Signs: Vital Signs x48h Temp Pulse Resp BP BP Pulse Ox 11/20/17 10:00 36.5 C 16 103/89 H 93 11/20/17 09:53 36.5 C 86 16 103/89 H 93 11/20/17 09:50 36.7 C 87 16 133/82 H 91 L Intake & Output: Intake & Output 11/17/17 11/18/17 11/19/17 11/20/17 23:59 23:59 23:59 23:59 Intake Total 1000 2243 3750.275 1438.607 Output Total 550 1100 800 Balance 1000 1693 2650.275 638.607 - Objective General Appearance: positive: Alert. negative: Lethargic Eyes Bilateral: positive: Normal inspection, PERRL, No lid inflammation, Conjunc tivae nml ENT: positive: ENT inspection nml, Pharynx nml, No signs of dehydration. negative: Purulent nasal drainage, Pharyngeal erythema, Oral lesions Neck: positive: Nml inspection, Thyroid nml, No JVD, Trachea midline. negative: Thyromegaly, Lymphadenopathy (R), Lymphadenopathy (L), Stiff neck, Swelling/bruising, Tracheal deviation Respiratory: positive: Chest non-tender, No respiratory distress. negative: Wheezes, Rales, Rhonchi Cardiovascular: positive: Regular rate & rhythm, No murmur, No gallop. negative: Irregularly irregular, Extrasystoles, Tachycardia, Bradycardia, JVD present, Systolic murmur, Diastolic murmur Peripheral Pulses: 2+ Radial (R), 2+ Radial (L), 2+ Dorsalis pedis (R), 2+ Dorsalis pedis (L) Abdomen: positive: Non-tender, No organomegaly, Nml bowel sounds, No distention. negative: Tenderness, Guarding, Rebound Back: positive: Nml inspection. negative: CVA tenderness (R), CVA tenderness (L) Skin: positive: Color nml, No rash, Warm, Dry. negative: Cyanosis, Diaphoresis, Pallor Extremities: positive: Non-tender, Full ROM, Nml appearance. negative: Calf tenderness, Joint swelling, Kristie's sign/cords Neurologic/Psychiatric: positive: Oriented x3, Sensation nml, Mood/affect nml. negative: Weakness, Sensory loss, Facial droop, Slurred/abnml speech, Depressed mood/affect - Lab Results Fish Bones: 11/20/17 05:43 11/20/17 05:43 Other Labs: Lab Results x24hrs 11/20/17 11/20/17 Range/Units 05:43 05:43 WBC 9.1 (4.8-10.8) x10^3/uL RBC 2.54 L (4.20-5.40) 10^6/uL Hgb 8.2 L (12.0-16.0) g/dL Hct 24.2 L (37.0-47.0) % MCV 95.3 (81.0-99.0) fL MCH 32.4 H (27.0-31.0) pg MCHC 34.0 (32.0-36.0) g/dL RDW 19.1 H (12.0-15.0) % Plt Count 379 (130-450) 10^3/uL MPV 7.5 L (7.9-10.8) fL Neut # (Auto) 6.3 (1.5-6.6) 10^3/uL Lymph # (Auto) 1.0 L (1.5-3.5) 10^3/uL [place] # (Auto) 1.8 H (0.0-1.0) 10^3/uL Eos # (Auto) 0.0 (0.0-0.7) 10^3/uL Baso # (Auto) 0.0 (0.0-0.1) 10^3/uL Absolute Nucleated RBC 0.01 x10^3/uL Band Neuts % (Manual) Not Reportable Abnorm Lymph % (Manual) Not Reportable Nucleated RBC % 0.1 /100WBC Neutrophils # (Manual) Not Reportable Lymphocytes # (Manual) Not Reportable Monocytes # (Manual) Not Reportable Eosinophils # (Manual) Not Reportable Basophils # (Manual) Not Reportable Differential Comment MANUAL=AUTO DIFF Platelet Estimate NORMAL (130-450,000) (NORMAL) RBC Morph Micro Appear NORMAL APPEARANCE (NORMAL) Sodium 135 (135-145) mmol/L Potassium 3.4 L (3.5-5.0) mmol/L Chloride 105 (101-111) mmol/L Carbon Dioxide 21 (21-32) mmol/L Anion Gap 9.0 (6-13) BUN 9 (6-20) mg/dL Creatinine 0.6 (0.4-1.0) mg/dL Estimated GFR (MDRD) 100 (>89) Glucose 96 (70-100) mg/dL Calcium 8.9 (8.5-10.3) mg/dL ABX Reporting Has patient been on IV antibiotics over the past 48 hours?: No Assessment/Plan - Problem List (1) Brain metastases Impression: 11/20 palliative care was consulted. pt would like to continue seek cancer treatment. support pt. pt state she will continue follow up her oncologist next week. continue pain control, add dilaudid and MS henley discussed with Ms Shaye Burris 11/19 I discussed with pt about her MRI finding. she report she did have pallia tive radiation therapy in her brain masses before, after she had diagnosis of lung cancer and had chemotherapy. she report her chemotherapy was hold now because the serious side effect. [facility] [place] followed up pt. she report she had severe pain since she was diagnosis of lung cancer. at this afternoon, pt report to social psychologist, she request palliative care consult first, then may remove to hospice care order palliative care consult and called A head MRI was completed today as the patient had a left facial droop and dysphagia. It shows lesions that resemble metastatic tumors. I have paged [facility] to do a phone consult as to the best plan/treatment in this case. Plan: Continue to monitor mental status, worsening condition. (2) Cerebrovascular accident (CVA) Impression: continue PT/OT 11/19 ASA daily, high dose statin, continue PT/OT dysphagia diet I spoke to Dr. Marin-[facility] to review head MRI results. They are happy to see her if needed as outpatient, but are no further recommendations or further imaging that they would recommend. Imaging matches symptoms such as dysphagia and a left facial droop. Plan: ASA daily, high dose statin, thickened liquids. (3) Facial paralysis on left side Impression: 11/20, unfortunately still present, continue support The patient continues to have this and relates it to her recent tooth pain for which she saw her dentist. She also has left facial numbness all the way into her neck. Pelayo's palsey has been ruled out. Plan: Continue to monitor. (4) Metastatic non-small cell lung cancer Impression: The patient is seen by our [facility] [place] oncology for this and it is considered to be with mets. Arlyn Garcia NP was conveniently in the hallway this morning and was alerted to this admission. She did a social visit to support the patient. Plan: Continue treatment, keep [facility] updated if the patient is here through Saturday. (5) COPD (chronic obstructive pulmonary disease) Impression: stable The patient admits to a smoking history and uses chronic inhalers at home. Preliminary echo results show elevated right heart pressures which coincides with her lung cancer. Plan: Monitor respiratory status. (6) Hyperlipidemia Impression: As part of the CVA acute treatment, the patient has been placed on high dose statin, which can be reduced after her 3 day inpatient stay to just 40 mg daily. Labs show elevated lipid panel, elevated triglycerides. Plan: Continue med. (7) anemia HGB 8.2 better than yesterday, pt is asymptomatic add ferrous sulf to pt HGB 7.6. nurse and pt denies GI bleeding. Unknown exact etiology it may be caused by metastatic cancer to the bone marrow, order anemia study, will follow up daily lab monitor (8) hypokelemia replace of potassium and IVF of D5 1/2 NS with 20 mequ K lab monitor
[2017-11-20] MEDS: GABAPENTIN 300 MG CAPSULE PO SCH (20:11)
[2017-11-20] MEDS: MORPHINE ER 15 MG TABLET PO SCH (20:11)
[2017-11-20] MEDS: ATORVASTATIN 40 MG TABLET PO SCH (20:11)
[2017-11-21] MEDS: SODIUM CHLORIDE FLUSH 0.9% 10 ML SYRINGE IVP SCH ×3 (00:28→17:13)
[2017-11-21] MEDS: AMOXICILLIN 500 MG PO SCH ×2 (05:30→13:08)
[2017-11-21] MEDS: LORazepam 2 MG/ML VIAL IVP PRN (05:30)
[2017-11-21] MEDS: HYDROmorphone 0.5 MG/0.5 ML SYRINGE IVP PRN (05:30)
[2017-11-21] MEDS: PANTOPRAZOLE 40 MG VIAL IVP SCH (05:30)
[2017-11-21] MEDS: SODIUM CHLORIDE FLUSH 0.9% 10 ML SYRINGE IVP PRN (05:31)
[2017-11-21] MEDS ORDERED: NICOTINE 14 MG PATCH TOP SCH (09:00)
[2017-11-21] MEDS: MORPHINE ER 15 MG TABLET PO SCH (09:07)
[2017-11-21] MEDS: FERROUS SULFATE 325 MG TABLET PO SCH (09:07)
[2017-11-21] MEDS: ASPIRIN EC 325 MG TABLET PO SCH (09:07)
[2017-11-21] MEDS: predniSONE 20 MG TABLET PO SCH (09:07)
[2017-11-21] MEDS: HEPARIN 5,000 UNIT/ML VIAL SUBQ SCH (09:08)
[2017-11-21] MEDS: POLYETHYLENE GLYCOL 3350 17 GM PACKET PO SCH (09:08)
[2017-11-21 11:11] LABS: BASOPHILS % (AUTO) 0.2 %; HGB - HEMOGLOBIN 8.8 g/dL (12.0-16.0); LYMPHOCYTES % (AUTO) 6.9 %; MEAN CORPUSCULAR HEMOGLOBIN 32.2 pg (27.0-31.0); MEAN CORPUSCULAR HGB CONC 34.1 g/dL (32.0-36.0); MEAN CORPUSCULAR VOLUME 94.4 fL (81.0-99.0); MEAN PLATELET VOLUME 7.9 fL (7.9-10.8); MONOCYTES % (AUTO) 13.9 %; PLT - PLATELET COUNT 373 10^3/uL (130-450); RED BLOOD COUNT 2.74 10^6/uL (4.20-5.40); WHITE BLOOD COUNT 9.1 x10^3/uL (4.8-10.8)
[2017-11-21 11:12] LABS: ALBUMIN 2.8 g/dL (3.2-5.5); ALBUMIN/GLOBULIN RATIO 0.8 (1.0-2.2); BILIRUBIN,TOTAL 0.6 mg/dL (0.2-1.0); CALCIUM 8.9 mg/dL (8.5-10.3); CREATININE 0.6 mg/dL (0.4-1.0); TOTAL PROTEIN 6.5 g/dL (6.7-8.2)
[2017-11-21 11:16] LABS: ABNORMAL LYMPHS % (MANUAL) 0 %
[2017-11-21 11:34] LABS: BAND NEUTROPHILS % (MANUAL) 2 %; LYMPHOCYTES # (MANUAL) 0.9 10^3/uL (1.5-3.5); LYMPHOCYTES % (MANUAL) 10 %; MONOCYTES # (MANUAL) 0.7 10^3/uL (0.0-1.0); MYELOCYTES % (MANUAL) 1 %; NEUTROPHILS # (MANUAL) 7.4 10^3/uL (1.5-6.6); NEUTROPHILS % (MANUAL) 79 %
[2017-11-21 11:36] LABS: DIFFERENTIAL COMMENT MANUAL DIFFERENTIAL; PLATELET ESTIMATE, MANUAL NORMAL (130-450,000) (NORMAL)
--- NOTE | 2017-11-21 12:07 | ADVANCE CARE PLANNING NOTE ---
Advance Care Planning - Date/Time Date: 11/21/17 Time: 12:02 - Purpose of encounter Text: advance care - Parties in attendance Parties in attendance: pt and me - Decisional capacity Decisional capacity of: palliative and possible hospice care - Subjective/Patient's story Subjective/Patient's story: pt feel need discussion of her life goal and quality of her life, seek other opinions. - Objective/Medical story Objective/Medical Story: lung cancer after 4 cycles of chemotherapy, metastatic brain masses, CVA, - Goals of Care Goals of care determinations: pt agree palliative care, and possible hospice care - Plan Plan: d/c home with palliative care visit next day, and transfer to hospice care as situation become available. - Code Status Code Status: Do Not Attempt Resuscitation - Time Spent on Advance Care Planning Time spent on advance care plannin
[2017-11-21] MEDS: NYSTATIN 500000 UNITS/5 ML UDC PO SCH ×2 (13:08→17:12)
[2017-11-21] MEDS: oxyCODONE 5 MG TABLET PO PRN ×2 (13:08→17:10)
--- NOTE | 2017-11-21 13:20 | Discharge Plan ---
Discharge Plan Disposition: Home, Self Care Condition: Poor Prescriptions: Aspirin EC [Ecotrin] 325 mg PO DAILY #10 tablet Atorvastatin [Lipitor] 80 mg PO QPM #20 tablet Dexamethasone [Decadron] 4 mg PO DAILY #5 tablet Ferrous Sulfate 325 mg PO DAILY #15 tablet Morphine ER 15 mg PO BID PRN #10 tablet PRN Reason: Pain Nystatin 500,000 unit PO QID PRN #100 ml PRN Reason: oral thrush Diet: Soft Activity Restrictions: Activity as Tolerated Shower Restrictions: No (fall precaution) Instruction Topics: Stroke Ischemic Additional Instructions or Follow Up instructions: You may follow up your PCP and palliative care provider in one week, and followup your oncologist in one week. You strongly request to be discharged to home today. In your MRI of brain also raises the possibility of recent ischemic infarct, Aspirin and Lipitor are prescribed to you. Should your symptoms return or worsen, you may present ER or call 911 for help. No Smoking: If you smoke, Please STOP! Call for help. Follow-up with: GREGG ZAMAN [Primary Care Provider] -
--- NOTE | 2017-11-21 13:33 | DISCHARGE SUMMARY ---
"Discharge Summary Discharge Date: 11/21/17 Discharging Provider: CONDON Primary Care Provider: Zurdo Montaño Condition at Discharge: Poor Discharge Disposition: Home, Self Care Discharge Facility Name: home - DIAGNOSES Admission Diagnoses: (1) Facial paralysis on left side (2) Lung cancer (3) Chronic back pain (4) COPD (chronic obstructive pulmonary disease) Discharge Diagnoses with Status of Each Condition: (1) Brain metastases MRI indicate metastases lesion. discussed with pt about MRI of brain image study. palliative care was consulted. pt choose to continue seek of treatment from her oncologist. pt has appointment to see her oncologist on next week Saturday. pt strongly request to be d/c to home today. Morphine ER, per palliati ve care provider recommend, is prescribed PRN for pt. (2) Cerebrovascular accident (CVA) MRI reveals possible small recent ischemic infarct. Aspirin and Statin were prescribed to her (3) Facial paralysis on left side still present, it seems from combination of brain metastases and possible small stroke, follow up oncologist, PCP. (4) Metastatic non-small cell lung cancer pt has appointment to see Dr. Li, her oncologist on coming Saturday (5) COPD (chronic obstructive pulmonary disease) stable, advise pt quit smoking, continue home regimen (6) Hyperlipidemia stable (7) anemia improved, follow up oncologist (8) hypokelemia resolved (9) dysphagia pt request regular diet, she think more tasteful. (10) malnutrition consulted with cafeteria attendant, follow up (11) palliative care consulted with palliative care, will follow up pt on next day in her home. pt state her friend as her caregiver at her home to help her, she decline other help service to her - HPI History of Present Illness: refer from Dr. Barnhart's HPI for pt as the following: Patient is a 66 y/o female with lung cancer currently on chemotherapy. It has been about 30 days since her last session of chemotherapy. She presented to the ED with left facial droop and numbness. She she attempted eating boiled rice and was choking so she decided to come in for evaluation. When she attempts to drink liquids, it drools out the left side of of her mouth. She reports headaches but denies vision changes or dizziness. She denies weakness in any of her extremities. Her EOM are intact but she is unable to raise her eyelids on the left. She appears frail. She denies chest pain, BRITTA, abd pain. She reports rib pain and she was dry heaving in during the course of the exam. - CONSULTS | PROCEDURES Consultations: palliative care - ALLERGIES Allergies/Adverse Reactions: Allergies Allergy/AdvReac Type Severity Reaction Status Date / Time Sulfa (Sulfonamide Allergy Severe Edema Verified 11/17/17 15:48 Antibiotics) epinephrine AdvReac palpitation Verified 11/17/17 15:48 s - MEDICATIONS Home Medications: Ambulatory Orders Medication Instructions Recorded Confirmed Omeprazole 40 mg PO DAILY #30 capsule. 05/25/17 11/18/17 oxyCODONE [Roxicodone] 5 - 10 mg PO Q4H PRN #16 tablet 05/25/17 11/18/17 Albuterol Sulf [Ventolin Hfa 1 - 2 puffs INH Q4HR PRN 09/29/17 11/18/17 Inhaler] Gabapentin 300 mg PO QPM 09/29/17 11/18/17 tiZANidine [Zanaflex] 4 mg PO TID PRN 09/29/17 11/18/17 Budesonide/Formoterol Fumarate 1 puffs IH BID #0 10/02/17 11/18/17 [Symbicort 160-4.5 Mcg Inhaler] Magnesium Oxide [Mag Ox] 400 mg PO DAILY #30 tablet 10/04/17 11/18/17 Potassium Chloride [K-Dur] 20 meq PO BIDWM 10/10/17 11/18/17 Aspirin EC [Ecotrin] 325 mg PO DAILY #10 tablet 11/21/17 Atorvastatin [Lipitor] 80 mg PO QPM #20 tablet 11/21/17 Dexamethasone [Decadron] 4 mg PO DAILY #5 tablet 11/21/17 Ferrous Sulfate 325 mg PO DAILY #15 tablet 11/21/17 Morphine ER 15 mg PO BID PRN #10 tablet 11/21/17 Nystatin 500,000 unit PO QID PRN #100 ml 11/21/17 - PHYSICAL EXAM AT DISCHARGE General Appearance: positive: No acute distress, Alert. negative: Lethargic Eyes Bilateral: positive: Normal inspection, PERRL, No lid inflammation, Conjunctivae nml ENT: positive: ENT inspection nml, Pharynx nml, No signs of dehydration. negative: Purulent nasal drainage, Pharyngeal erythema, Oral lesions Neck: positive: Nml inspection, Thyroid nml, No JVD, Trachea midline. negative: Thyromegaly, Lymphadenopathy (R), Lymphadenopathy (L), Stiff neck, Swelling/bruising, Tracheal deviation Respiratory: positive: Chest non-tender, No respiratory distress. negative: Wheezes, Rales, Rhonchi Cardiovascular: positive: Regular rate & rhythm, No murmur, No gallop. negative: Irregularly irregular, Extrasystoles, Tachycardia, Bradycardia, JVD present, Systolic murmur, Diastolic murmur Peripheral Pulses: positive: 2+ Abdomen: positive: Non-tender, No organomegaly, Nml bowel sounds, No distention. negative: Tenderness, Guarding, Rebound Back: positive: Nml inspection. negative: CVA tenderness (R), CVA tenderness (L) Skin: positive: Color nml, No rash, Warm, Dry. negative: Cyanosis, Diaphoresis, Pallor Extremities: positive: Non-tender, Nml appearance. negative: Calf tenderness, Kristie's sign/cords Neurologic/Psychiatric: positive: Oriented x3, Sensation nml, Mood/affect nml, Facial droop. negative: Weakness, Sensory loss, Slurred/abnml speech, Depressed mood/affect - LABS Result Diagrams: 11/21/17 10:28 11/21/17 10:28 - FOLLOW UP Follow Up: You may follow up your PCP and palliative care provider in one week, and followup your oncologist in one week. You strongly request to be discharged to home today. In your MRI of brain also raises the possibility of recent ischemic infarct, Aspirin and Lipitor are prescribed to you. Should your symptoms return or worsen, you may present ER or call 911 for help. - TIME SPENT Time Spent in Discharge (Minutes): 45"
[2017-11-21 16:06] VITALS: BP 111/93
--- NOTE | 2017-11-21 16:07 | CONSULTATION NOTE ---
Palliative Care Follow Up - Referral Referring Provider: Bertrand CASH Time of Visit: [id number] Referral setting: Hospitalized patient Referral Reason: Metastatic Small Cell Lung Cancer/Pain of neoplastic origin - Information Sources Records reviewed: Previous records reviewed History/Review of Systems obtained from: Patient Exam limitations: Clinical condition (patient with ongoing forgetfulness/STM issues) - History of Present Illness Update Brief HPI Update: This is a 66-year-old woman with a diagnosis of small cell lung cancer, extensive stage. Please see HPI from yesterday for further extent of history. She at this point in time has declined hospice support, and hopes that she will have treatment options, she is to meet with Dr. Li on Saturday with her friend and TYRONE Delong. Patient did receive Lorazepam 0.5 mg and Dilaudid 0.5 mg IV at 530 this a.m., she did have increased difficulty getting to the bathroom this a.m., she is starting to clear up. She does still continues to complain of se nayan pain of a 6-7/10, she is quite insistent That she needs to return home. Discussed the reality given her weakness, difficulty tracking, uncontrolled pain, and poor intake if this was going to be a safe discharge plan. Patient quite adamant her friend Baljeet, who was part of the meeting yesterday, will be able to help her meet her care needs. She does feel like she can ask him to stay tonight, until she is feeling better. He is also per her report going to be able to brick picker her medications, as well as some groceries for her. She is very much looking forward to some "decent food", with her soft diet and diet restrictions, she has not found anything that she likes at the hospital. Padmini salcedo is quite cachectic, continues to lose weight, and presents with both functional and cognitive decline. Her main goal at this point in time is to be home, she feels more safe, and even if she continues to deteriorate this is where she would want to be for her end-of-life event. Social History - Living Situation Living arrangement: At home Living Situation: Alone Support System: Patient with very little social support, she does have a friend Angelina whom she depends on pretty heavily. In discussing yesterday, he did make a commitment to see her through this next few weeks and like of her "journey" even if it is end of life. She very much wants to get home and wrap up details, she is hopeful that will be treatment options, but also realistic that this may continue as far as her wishes not to return back to the hospital. Medications/Allergies - Medications Active Medication List: Active Medications Aspirin (Ecotrin) 325 mg PO DAILY [facility] Last Admin: 11/21/17 09:07 Dose: 325 mg Atorvastatin Calcium (Lipitor) 80 mg PO QPM [facility] Last Admin: 11/20/17 20:11 Dose: 80 mg Ferrous Sulfate (Feosol) 325 mg PO DAILYWM [facility] Last Admin: 11/21/17 09:07 Dose: 325 mg Gabapentin (Neurontin) 300 mg PO QPM [facility] Last Admin: 11/20/17 20:11 Dose: 300 mg Heparin Sodium (Beef Lung) () 30 - 50 unit IVP PRN PRN PRN Reason: Port Protocol (<24 hours) Last Admin: 11/18/17 06:31 Dose: 50 unit Heparin Sodium (Porcine) () 2,500 unit SUBQ BID [facility] Potassium Chloride/Dextrose/Sod Cl (D5.45ns W/20 Meq Kcl) 1,000 mls @ 83.333 mls/hr IV .Q12H [facility] Last Infusion: 11/21/17 15:12 Dose: Infused Morphine Sulfate () 15 mg PO BID [facility] Last Admin: 11/21/17 09:07 Dose: 15 mg Nicotine (Nicoderm) 1 patch TOP DAILY [facility] Last Admin: 11/21/17 09:08 Dose: 1 patch Nystatin (Mycostatin) 5 ml PO QID [facility] Last Admin: 11/21/17 13:08 Dose: 5 ml Ondansetron HCl (Zofran Inj) 4 mg IVP Q6HR PRN PRN Reason: Nausea / Vomiting Last Admin: 11/19/17 20:45 Dose: 4 mg Oxycodone HCl (Roxicodone) 5 mg PO Q4HR PRN PRN Reason: PAIN Last Admin: 11/21/17 13:08 Dose: 5 mg Pantoprazole Sodium (Protonix) 40 mg IVP QDAC [facility] Last Admin: 11/21/17 05:30 Dose: 40 mg Amoxicillin 500 Mg (Tab) 1 each PO TID [facility] Last Admin: 11/21/17 13:08 Dose: 1 each Polyethylene Glycol (Miralax) 17 gm PO DAILY [facility] Last Admin: 11/21/17 09:08 Dose: Not Given Prednisone (Deltasone) 40 mg PO DAILYWM [facility] Stop: 11/28/17 07:59 Sodium Chloride (Normal Saline Flush 0.9%) 10 ml IVP PRN PRN PRN Reason: NEEDED PER PROVIDER ORDERS Last Admin: 11/21/17 05:31 Dose: 10 ml Sodium Chloride (Normal Saline Flush 0.9%) 10 ml IVP 0100,0900,1700 [facility] Last Admin: 11/21/17 09:09 Dose: Not Given Sodium Chloride (Normal Saline Flush 0.9%) 20 ml IVP PRN PRN PRN Reason: After Blood Draw Last Admin: 11/18/17 06:31 Dose: 20 ml Tizanidine HCl (Zanaflex) 4 mg PO TID PRN PRN Reason: Spasms Last Admin: 11/20/17 15:46 Dose: 4 mg Albuterol Sulf [Ventolin Hfa Inhaler] 1 - 2 puffs INH Q4HR PRN 09/29/17 Gabapentin 300 mg PO QPM 09/29/17 tiZANidine [Zanaflex] 4 mg PO TID PRN 09/29/17 Budesonide/Formoterol Fumarate [Symbicort 160-4.5 Mcg Inhaler] 1 puffs IH BID #0 10/02/17 Potassium Chloride [K-Dur] 20 meq PO BIDWM 10/10/17 - Allergies Allergies/Adverse Reactions: Allergies Allergy/AdvReac Type Severity Reaction Status Date / Time Sulfa (Sulfonamide Allergy Severe Edema Verified 11/17/17 15:48 Antibiotics) epinephrine AdvReac palpitation Verified 11/17/17 15:48 s Review of Systems - Constitutional Constitutional: reports: Fatigue, Weakness, Poor appetite, Weight loss. denies: Fever - Eyes Eyes: reports: Vision loss - Ears, Nose & Throat Ears, Nose & Throat: reports: Dry mouth, Other (presents with white patches of candidiasis; attributed to prednisone dose and poor intake/immunosuppresion) - Cardiovascular Cardiovascular: reports: Exertional dyspnea, Decr. exercise tolerance - Respiratory Respiratory: reports: SOB at rest, SOB with exertion - Gastrointestinal Gastrointestinal: reports: Constipation (reports has bowel medications at home), Poor appetite. denies: Nausea - Genitourinary Genitourinary: reports: Urgency - Musculoskeletal Musculoskeletal: reports: Muscle pain, Back pain, Muscle aches, Stiffness, Limited range of motion, Muscle weakness, Assistive devices (will start using a walker) - Integumentary Integumentary: reports: Dryness - Neurological Neurological: reports: General weakness, Headache, Dizziness, Memory problems - Psychiatric Psychiatric: reports: Anxiety - Endocrine Endocrine: reports: Intolerance to cold - Hematologic/Lymphatic Hematologic/Lymphatic: reports: Anemia - All Other Systems All Other Systems: reports: Reviewed and negative Physical Exam - Vital Signs Vital Signs: Vital Signs x48h Temp Pulse Resp BP Pulse Ox 11/21/17 09:42 36.8 C 88 18 133/91 H 94 - Physical Exam General Appearance: positive: Mild distress, Anxious Eyes Bilateral: positive: Other (left eyelid unable to close; watering) ENT: positive: Other (patient with thick white coat on tongue and scattered white patches bucually; uncomfortable to patient with taste changes) Neck: positive: No JVD, Trachea midline Cardiovascular: positive: Regular rate & rhythm Respiratory: positive: Diminished throughout, Wheezes (expiratory wheezes LLL) Abdomen: positive: Soft Skin: positive: Pallor, Dryness, Bruising Extremities: positive: No pedal edema, Other (cachetic in appearance; upper and lower extremity wasting; needing contact assist for ambulating to BR) Neurologic/Psychiatric: positive: Disoriented to time, Weakness, Facial droop Palliative Care - POLST Patient has POLST: Yes POLST Status: DNR, Selective Treatment Pain: Location (mid thoracic/lower back; worst pain in LLthoracic area; tender to palpation over area; guarding with ambulation; rates 6/10 maybe "slightly better") Tiredness/Fatigue: Moderate (4-6) Drowsiness/Sedation: Moderate (4-6) Nausea: Mild (1-3) Depression: Mild (1-3) Anxiety: Moderate (4-6) Dyspnea: Severe (7-10) Anorexia: Severe (7-10), Weight loss Sleep: Variable sleep pattern Constipation: Yes, Opoid induced, Unmanaged Feelings of wellbeing/Perceived Quality of Life: Poor, Worsening Performance Status: Patient has not been eating or drinking for several days, secondary to her recent stroke as well as food dislikes. She is quite weak, spent most the time in bed, has declined working with physical therapy. She is quite anxious to jus t get home, she does report she has a walker there, sounds like what she is describing is also she "furniture walks". Unclear if she is going to have another physical and hands-on care at that point in time she transitions home - Palliative Care Discussion: Patient remains quite frail, does present as a failure to thrive, with ongoing cognitive and functional decline. Patient does have escalating pain most likely attributed to her cancer. With a recent stroke, she is even further decrease in intake, she is quite cachectic. She is hoping for the best, that there might be some treatment options, though is somewhat realistic that she needs to get home because she is fearful of dying in the hospital, and an end-of-life event. Would benefit from hospice support, may need to wait until visit with oncologist, agreed to home visit tomorrow, to evaluate situation. May need to transition sooner. Results - Lab Results Lab results reviewed: Yes Fish Bones: 11/21/17 10:28 11/21/17 10:28 Lab and Imaging Results: Lab Results x24hrs 11/21/17 11/21/17 Range/Units 10:28 10:28 WBC 9.1 (4.8-10.8) x10^3/uL RBC 2.74 L (4.20-5.40) 10^6/uL Hgb 8.8 L (12.0-16.0) g/dL Hct 25.9 L (37.0-47.0) % MCV 94.4 (81.0-99.0) fL MCH 32.2 H (27.0-31.0) pg MCHC 34.1 (32.0-36.0) g/dL RDW 18.0 H (12.0-15.0) % Plt Count 373 (130-450) 10^3/uL MPV 7.9 (7.9-10.8) fL Neut # (Auto) Not Reportable Lymph # (Auto) Not Reportable Coffee # (Auto) Not Reportable Eos # (Auto) Not Reportable Baso # (Auto) Not Reportable Absolute Nucleated RBC Not Reportable Total Counted 100 Band Neuts % (Manual) 2 (0 - 10) % Abnorm Lymph % (Manual) 0 % Myelocytes % 1 H ( - 0) % Nucleated RBC % Not Reportable Neutrophils # (Manual) 7.4 H (1.5-6.6) 10^3/uL Lymphocytes # (Manual) 0.9 L (1.5-3.5) 10^3/uL Monocytes # (Manual) 0.7 (0.0-1.0) 10^3/uL Eosinophils # (Manual) 0.0 (0-0.7) 10^3/uL Basophils # (Manual) 0.0 (0-0.1) 10^3/uL Differential Comment MANUAL DIFFERENTIAL Platelet Estimate NORMAL (130-450,000) (NORMAL) RBC Morph Micro Appear 1+ POLYCHROMASIA (NORMAL) Sodium 135 (135-145) mmol/L Potassium 3.6 (3.5-5.0) mmol/L Chloride 102 (101-111) mmol/L Carbon Dioxide 24 (21-32) mmol/L Anion Gap 9.0 (6-13) BUN 9 (6-20) mg/dL Creatinine 0.6 (0.4-1.0) mg/dL Estimated GFR (MDRD) 100 (>89) Glucose 107 H (70-100) mg/dL Calcium 8.9 (8.5-10.3) mg/dL Total Bilirubin 0.6 (0.2-1.0) mg/dL AST 27 (10-42) IU/L ALT 14 (10-60) IU/L Alkaline Phosphatase 92 (42-121) IU/L Total Protein 6.5 L (6.7-8.2) g/dL Albumin 2.8 L (3.2-5.5) g/dL Globulin 3.7 (2.1-4.2) g/dL Albumin/Globulin Ratio 0.8 L (1.0-2.2) Impression and Recommendations - Palliative Care Impression: This is a 66-year-old woman with advanced small cell lung cancer, with high symptom burden, decreased functional status, and cognitive decline. She does present is quite cachectic and a failure to thrive, she has minimal social supp ort, most likely would benefit from hospice transition. Patient would like to hold out though and see if there is any further treatment options, she does have an appointment with oncologist on Saturday. Palliative care to provide support and follow-up regarding pain and symptom management. Recommendations/Counseling Done: 1. Pain of neoplastic origin. Patient's pain continues to progress, most likely related to her cancer. She is on high-dose prednisone 60 mg secondary to original thought of Pelayo's palsy. She will be Titrated down on this, is actually may be helping with some of her bone pain, will need to evaluate response. She did start the MS Contin 15 mg last night, and again this a.m. Her baseline oxycodone use at home had been averaging around 40-45 mg of oxycodone, she has been using higher doses of IV pain meds here. Requested the hospitalist discontinue those, and patient use oral oxycodone, to be able to evaluate response here in the hospital versus at home for uncontrolled pain. 2. Anorexia. Patient continues with challenges regarding eating and diet restrictions secondary to her new diagnosis of dysphagia related to her stroke. Unclear patient appreciates her restrictions, and if it is going to be able to be compliant with her diet modifications. She is looking forward to her own food choices. She also presents with oral candidiasis, which is impacting her taste as well as desire to eat. We will go ahead and initiate nystatin today prior to discharge, patient has had thrush before. 3. Generalized weakness. This is multifactorial in origin, including decreased intake, ongoing weight loss, progressive disease, and uncontrolled pain. She will ask her friend Baljeet to stay with her, and until she sees she is able to toilet without risk of fall, she feels like getting a walker and in her own home setting that this will improve. 4. Advanced care planning. Patient does have a TAMAR ST in place, patient is quite clear she does not want to in the hospital. Patient is continued decline, may need to transition to hospice sooner than oncology appointment, will evaluate at tomorrow's visit if patient in an unsafe situation. Patient does tend to overestimate her abilities, and has very poor insight into her frederic lity at this point in time. Time Spent: 30 minutes with greater than 50% of this done in counseling coordination of care, did set up follow-up appointment tomorrow in her home setting tomorrow afternoon.
[2017-11-21] MEDS: tiZANidine 4 MG TABLET PO PRN (17:10)
[2017-11-21] MEDS ORDERED: HEPARIN 5,000 UNIT/ML VIAL SUBQ SCH (21:00)
[2017-11-22] MEDS ORDERED: predniSONE 20 MG TABLET PO SCH (08:00)
== END 2017-11-21 18:00 | disposition home or self-care (01) | DRG 65 ==
LOC: ED 15:37 → INTOOBSV 17:52 → MS2 17:52 → OBSVTOIN 11-18 16:35
PROVIDERS: ADMIT Internal Medicine; ATTEND Nurse Practitioner Gerontology
DX: I63.9 Cerebral infarction, unspecified (principal); Z68.1 Body mass index [BMI] 19.9 or less, adult; C7A.1 Malignant poorly differentiated neuroendocrine tumors; C7B.8 Other secondary neuroendocrine tumors; C34.90 Malignant neoplasm of unspecified part of unspecified bronchus or lung; C79.9 Secondary malignant neoplasm of unspecified site; M54.6 Pain in thoracic spine; G89.29 Other chronic pain; F17.213 Nicotine dependence, cigarettes, with withdrawal; B37.0 Candidal stomatitis; E44.1 Mild protein-calorie malnutrition; R29.810 Facial weakness; E78.00 Pure hypercholesterolemia, unspecified; F17.210 Nicotine dependence, cigarettes, uncomplicated; G89.3 Neoplasm related pain (acute) (chronic); M84.58XS Pathological fracture in neoplastic disease, other specified site, sequela; J43.9 Emphysema, unspecified; E87.6 Hypokalemia; Z87.11 Personal history of peptic ulcer disease; R13.10 Dysphagia, unspecified; R51 Headache; R41.0 Disorientation, unspecified; R41.3 Other amnesia; R20.0 Anesthesia of skin; K08.89 Other specified disorders of teeth and supporting structures; K21.9 Gastro-esophageal reflux disease without esophagitis; M06.9 Rheumatoid arthritis, unspecified; E78.5 Hyperlipidemia, unspecified; G62.9 Polyneuropathy, unspecified; D64.81 Anemia due to antineoplastic chemotherapy; T45.1X5S Adverse effect of antineoplastic and immunosuppressive drugs, sequela; Z51.5 Encounter for palliative care; Z66 Do not resuscitate; Z60.2 Problems related to living alone; Z79.899 Other long term (current) drug therapy; Z79.891 Long term (current) use of opiate analgesic; Z79.51 Long term (current) use of inhaled steroids; Z79.82 Long term (current) use of aspirin; Z74.01 Bed confinement status; Z92.3 Personal history of irradiation
CPT/HCPCS: 36415; 70450; 70551; 80048; 80053; 80061; 82150; 82607; 82728; 83036; 83540; 83615; 83690; 83721; 84466; 85025; 85044; 85610; 93306; 93880; 96374; 96375; 96376; 99223; 99232; 99284

== ENCOUNTER 2017-11-22 16:07 | Outpatient (CLI) | payer MEDICARE ==
--- NOTE | 2017-11-22 17:00 | CONSULTATION NOTE ---
Palliative Care Follow Up - Referral Referring Provider: Dr. Elisa Li Time of Visit: [id number] Referral setting: Home (It is a taxing considerable effort for the patient leave the home, due to severe uncontrolled pain, weakness, and recent stroke symptoms) Referral Reason: Advanced Small Cell Lung Cancer/Goals of Care - Information Sources Records reviewed: Previous records reviewed History/Review of Systems obtained from: Patient Exam limitations: Clinical condition (some STM issues) - History of Present Illness Update Brief HPI Update: This is a feisty 66-year-old woman who was recently hospitalized at [facility] and discharged on 11/21, she was hospitalized for facial paralysis on her left side attributed to stroke. She has been started on aspirin and statin as a result of this. She has no other residual, no left hemiplegia, but does present is quite cachectic, with significant weight loss, increasing left sided thoracic pain in the area of her small cell lung cancer, and there was significant confusion due to her MRI of her brain whether she had metastatic disease. She did receive whole brain radiation, and per her oncologist/radiation oncologist the likelihood is quite low. Patient has returned home, she is living alone, she does have friends who support her. She is very weak, but is able to "furniture walk" around the house. She has been trying to eat and drink fluids, she is having some difficulty with this as it drools out the right side of her face, some difficulty with eating, and concern also about long-standing dental abscesses and tooth pain. Patient does recognize the seriousness of her illness, had actually been ready to transition to hospice, until the question regarding brain metastases is resolved as well as patient may be a candidate for immunotherapy pain. Patient is quite feisty, would continue treatment as long as she is able to manage her current quality of life, which is with some degree of independence. She does present with high symptom burden though with increasing pain, decreased appetite and intake, mild increase in confusion, and now with left facial paralysis.Palliative care to provide support regarding pain and symptom management and coordination of care and transition to hospice when appropriate or ready. Social History - Living Situation Living arrangement: At home Living Situation: Alone Support System: Has friends who check on her regularly, Baljeet GOLDSMITH and closest friend is assisting her with groceries and getting medications. Have made arrangements for him to attend her oncology and palliative care visit Saturday Medications/Allergies - Medications Home Medications: Ambulatory Orders Medication Instructions Recorded Confirmed oxyCODONE [Roxicodone] 5 - 10 mg PO Q4H PRN #16 tablet 05/25/17 11/22/17 Albuterol Sulf [Ventolin Hfa 1 - 2 puffs INH Q4HR PRN 09/29/17 11/22/17 Inhaler] Gabapentin 300 mg PO QPM 09/29/17 11/22/17 tiZANidine [Zanaflex] 4 mg PO TID PRN 09/29/17 11/22/17 Budesonide/Formoterol Fumarate 1 neb IH BID PRN #0 10/02/17 11/22/17 [Symbicort 160-4.5 Mcg Inhaler] Aspirin EC [Ecotrin] 325 mg PO DAILY #10 tablet 11/21/17 11/22/17 Atorvastatin [Lipitor] 80 mg PO QPM #20 tablet 11/21/17 11/22/17 Dexamethasone [Decadron] 4 mg PO DAILY #5 tablet 11/21/17 11/22/17 Ferrous Sulfate 325 mg PO DAILY #15 tablet 11/21/17 11/22/17 Nystatin 500,000 unit PO QID PRN #100 ml 11/21/17 11/22/17 Morphine ER 15 mg PO BID 11/22/17 11/22/17 Omeprazole 20 mg PO DAILY 11/22/17 11/22/17 - Allergies Allergies/Adverse Reactions: Allergies Allergy/AdvReac Type Severity Reaction Status Date / Time Sulfa (Sulfonamide Allergy Severe Edema Verified 11/17/17 15:48 Antibiotics) epinephrine AdvReac palpitation Verified 11/17/17 15:48 s Review of Systems - Constitutional Constitutional: reports: Fatigue, Weakness, Poor appetite, Weight loss. denies: Fever - Eyes Eyes: reports: Blurred vision (left eye), Vision loss, Other - Ears, Nose & Throat Ears, Nose & Throat: reports: Dental decay (has multiple dental abscesses; recently on AB just finishing), Other (oral candidiasis) - Cardiovascular Cardiovascular: reports: Decr. exercise tolerance, Orthopnea - Respiratory Respiratory: reports: Cough, SOB with exertion. denies: Sputum production, SOB at rest - Gastrointestinal Gastrointestinal: reports: Reflux/heartburn, Poor appetite, Early satiety, Other (new soft texture/dysphagia/aspiration precautions). denies: Constipation (had bowel movement when got home) - Genitourinary Genitourinary: denies: Incontinence - Musculoskeletal Musculoskeletal: reports: Muscle pain, Back pain, Muscle aches, Stiffness, Muscle weakness, Assistive devices (has cane and walker available; "furniture walks" around house) - Integumentary Integumentary: reports: Dryness, Hair changes (alopecia) - Neurological Neurological: reports: General weakness, Headache, Memory problems, Abnormal gait, Slurred speech - Psychiatric Psychiatric: reports: Anxiety - Endocrine Endocrine: reports: Intolerance to cold - Hematologic/Lymphatic Hematologic/Lymphatic: reports: Anemia, Recurrent infections - All Other Systems All Other Systems: reports: Reviewed and negative Physical Exam - Vital Signs Temperature: 98.1 C Pulse Rate: 84 Respiratory Rate: 18 O2 Saturation: 92 (ra @ rest) Blood Pressure: 108/64 - Physical Exam General Appearance: positive: No acute distress, Anxious Eyes Bilateral: positive: Other (left eye watery; does not close all the way has ptosis) ENT: positive: Other (dental decay; no s/s abcess can definitively identify; difficulty with left sided swelling with recent paralysis so unable to tell; white patches with candidiasis) Neck: positive: Trachea midline Cardiovascular: positive: Regular rate & rhythm, Other (portacath left chest) Respiratory: positive: Diminished throughout, Other (few wheezes over LLL) Abdomen: positive: Nml bowel sounds, Other (flat/concave) Skin: positive: Pallor, Dryness Extremities: positive: No pedal edema Neurologic/Psychiatric: positive: Oriented x3, Mood/affect nml, Facial droop (left), Other (STM; difficulty tracking though much clearer than hospitalization) Palliative Care - POLST Patient has POLST: Yes POLST Status: DNR, Comfort Measures Pain: Pain worsening, Location (Has initiated MS Contin 15 mg twice daily, using oxycodone 5-10 mg as needed breakthrough pain, does not have a good system for tracking this. Reports her pain is easier to control at home as she can reposition and move about her apartment. She does only sleep 2-3 hours at a time, secondary to pain and discomfort and anxiety. Pain is described in mid thoracic and lower back area with a band across her pelvic area, most intense pain is in her left thoracic lower lobe area, tender to touch, she feels like the "bones are mushy".) Tiredness/Fatigue: Severe (7-10) Drowsiness/Sedation: Mild (1-3) Nausea: None Depression: Mild (1-3) Anxiety: Moderate (4-6) Dyspnea: Moderate (4-6), Comment (has oxygen if needed) Anorexia: Moderate (4-6), Weight loss (worsening with dysphagia;) Sleep: Sleeps poorly Constipation: Yes, Opoid induced, Comment (takes no bowel medications) Feelings of wellbeing/Perceived Quality of Life: Poor, Worsening Performance Status: Patient has bath set up, but with increased weakness is somewhat hesitant to bathe independently. She has just been sponge bathing. She does spend most the time in her bed, she does do small household tasks that she is able but has poor activity tolerance. Her friends are going grocery shopping and picking up medications for her, she has been instructed not to drive. - Palliative Care Discussion: Patient does recognize she is getting towards the end of her disease process, she is hopeful Dr. Li has something to offer as far as treatment, She is willing though to do some anticipatory planning. She does live alone, her hope is to be able to in her own apartment. 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 Her goal is as long as she has quality of life to continue to work on things to extend her quantity of life. She is finding this more difficult as her "hits keep coming". She is very anxious but is very talkative and wanting to engage in processing her current feelings. Results - Lab Results Lab results reviewed: Yes Impression and Recommendations - Palliative Care Impression: This is a 66-year-old woman with advanced small cell lung cancer, with increasing pain most likely attributed to progressive disease, decreased functional status, and ongoing cognitive challenges with her memory issues. She presents with severe cachexia, failure to thrive, minimal social support but remains quite feisty and wanting to further explore other treatment options if possible. She is realistic though in the context of planning for end of life, and would be appropriate to transition to hospice at any point where her quality of life is not acceptable and/or there are no further treatment options. Palliative care to continue to provide support for pain and symptom management Recommendations/Counseling Done: 1. Pain of neoplastic origin. Patient's pain has currently escalated, she has been initiated on long-acting medication of MS 15 mg extended release. Ptosis of her left eye. This is a result of her left-sided facial paralysis. She has been instructed to use refresh eyedrops 2 drops 4 times a day, educated on the need to keep the eye moist, and to tape shut at night. She is hoping to regain some function, but does recognize and understand it is serious to keep the eye moist. 405.She does have her oxycodone 5 mg for 1-2 tabs for breakthrough pain, she would be overwhelmed as far as needing to track this on a regular basis, did ask her though to keep a total pill count as to be able to evaluate effectiveness of current regimen I suspect she will need a higher dosing but patient does live alone and will titrate slowly. 2. Constipation. Patient does not perceive this is a problem, education was provided regarding bowel meds and pain medications. She has not had any difficulty in the past, did instruct her to pick up attendant some senna just in case, offered to write prescriptions as finances are problematic. She declined at this time. 3. Medication adherence did review all of her discharge medications, indications, and reason for taking. She is unable to get the top off the nystatin. Was assisted and set aside. Patient feels like her current system is appropriate, does not want to Mediset. We will continue to watch for signs of noncompliance. 4. Ptosis. This is secondary to her stroke on left-sided facial paralysis. She has been instructed to use refresh eyedrops 2 drops 4 times a day, and tape eye shut at night. Educated on concern regarding corneal abrasions and may need a referral on to office assistance. 5. Oral candidiasis. Patient has been instructed on oral care, use of nystatin 4 times a day, swish and swallow. She also has concerns about her dental abscesses, at this point in time do not see any signs or symptoms of infection. She is to make appointment follow-up with her dentist, she may need another round of antibiotics but at this point in time will hold off. 6. Advanced small cell lung cancer. Patient with appointment with oncologist on Saturday, patient may be a candidate for immunotherapy. She is quite feisty perceives her current quality of life has acceptable, and would accept further treatment. Am concerned though regarding her performance status, her weight loss, and high symptom burden whether she will be an appropriate candidate. Will follow up with oncologist prior to her appointment with my concerns patient at this point in time would Qualify for hospice services which would definitely be of support for her. But these would need to be in alignment with her goals. 7. Advanced care planning. Patient is willing and wanting to talk more about wrapping up around end of life plans and planning. Patient's goal is to stay at home for as long as possible, did introduce possibly [facility] is a possibility for near end-of-life care. Plan for visit on Saturday after oncology visit, will continue to work with Baljeet HANSEN for anticipatory guidance and planning Time Spent: 60 minutes with greater than 50% of this done in counseling regarding pain and symptom management medication management and adherence as well as anticipatory guidance
== END 2017-11-22 16:08 | disposition home or self-care (01) ==
LOC: PC 16:07
PROVIDERS: ATTEND Nurse Practitioner Adult Health
DX: Z51.5 Encounter for palliative care (principal); G89.3 Neoplasm related pain (acute) (chronic); I69.392 Facial weakness following cerebral infarction; H02.432 Paralytic ptosis of left eyelid; B37.0 Candidal stomatitis; R64 Cachexia; C34.90 Malignant neoplasm of unspecified part of unspecified bronchus or lung; C79.9 Secondary malignant neoplasm of unspecified site; K04.7 Periapical abscess without sinus; F41.9 Anxiety disorder, unspecified; Z66 Do not resuscitate; Z79.891 Long term (current) use of opiate analgesic; R13.10 Dysphagia, unspecified; R62.7 Adult failure to thrive; R41.3 Other amnesia; Z60.2 Problems related to living alone
CPT/HCPCS: 99350

== ENCOUNTER 2017-11-26 12:17 | Outpatient (CLI) | payer MEDICAID, MEDICARE ==
--- NOTE | 2017-11-26 21:47 | CONSULTATION NOTE ---
Palliative Care Follow Up - Referral Referring Provider: Dr. Elias Li Time of Visit: [id number] Referral setting: [facility] Referral Reason: Pain of neoplastic origin/Small Cell Lung CA - Information Sources Records reviewed: Previous records reviewed History/Review of Systems obtained from: Patient, Friend (Baljeet present) Exam limitations: Clinical condition (patient with STM deficits;) - History of Present Illness Update Brief HPI Update: This is a feisty 66-year-old woman who was recently hospitalized at [facility], for left-sided paralysis of her face, ith most impact on increased difficulty swallowing and dysphagia. She has had difficulty with eating, denies any difficulty with choking, but given her underlying already compromised nutritional status this is of great concern. As she has recovered though, it is noted she also has left-sided lower extremity weakness, complains of her knee giving out, no improvement of her left face weakness. She was started on aspirin and a statin as a result of presumed stroke symptoms. She has seen the oncologist today, patient did have MRI of the brain during hospitalization with confusion regarding progressive disease, at this point her symptoms are not attributed to metastatic disease. She has completed her Decadron 4 mg from hospitalization, does not feel this has impacted her pain and/or appetite, originally started on Prednisone for presumed [place] Palsy on admission, then transitioned to decadron on discharge for titration off which she stopped on her own. Given patient's difficulty with managing her medications and med compliance, patient requests minimal meds if possible, may need to restart but will hold for now. Patient presents with high symptom burden, reports increasing left sided thoracic pain, that radiates across her back. This is complicated by her back spasms. She was initiated on MS Contin 15 mg twice daily, has not found this to be effective, has continued to use between 6-8 oxycodone a day. She presents with severe pain on evaluation, with pain behaviors of shifting, tenderness to palpation, and difficulty with transfers secondary to left-sided pain with movement. She denies anorexia, she has been "pushing it", trying to find foods and fluids that she can poor in. She does have difficulty with dribbling out of her right side of her mouth. She finds ice cream helpful to take her pills, is trying milkshakes, but has lost another 2-3 pounds over the last couple weeks. She does appear quite thin and cachectic, she was quite surprised to the weight loss, because she has been working very hard to bump up her calories. She denies problem with constipation, no nausea, her friend is with her who has been trying to provide support through grocery shopping, getting her medications, and checking on her regularly. Patient does live alone, is fiercely independent, and allows very little support at this point Social History - Living Situation Living arrangement: At home Living Situation: Alone Support System: Patient has good friend Baljeet who is present at the visit, with hospitalization, did agree to be patient's DPOA. Patient still in the process of pursuing DAISY, she has not done any further work on this, is waiting to hear from the INTERLOCKING INSTALLER. She admits to increasing confusion and difficulty following through and piece in the puzzle pieces together. She has had difficulty with her phone, managing her meds, and essentially furniture walks around her apartment. Medications/Allergies - Medications Home Medications: Ambulatory Orders Medication Instructions Recorded Confirmed oxyCODONE [Roxicodone] 5 - 10 mg PO Q4H PRN #16 tablet 05/25/17 11/27/17 Albuterol Sulf [Ventolin Hfa 1 - 2 puffs INH Q4HR PRN 09/29/17 11/26/17 Inhaler] Gabapentin 300 mg PO QPM 09/29/17 11/26/17 tiZANidine [Zanaflex] 4 mg PO TID PRN 09/29/17 11/26/17 Budesonide/Formoterol Fumarate 1 neb IH BID PRN #0 10/02/17 11/26/17 [Symbicort 160-4.5 Mcg Inhaler] Aspirin EC [Ecotrin] 325 mg PO DAILY #10 tablet 11/21/17 11/26/17 Atorvastatin [Lipitor] 80 mg PO QPM #20 tablet 11/21/17 11/26/17 Ferrous Sulfate 325 mg PO DAILY #15 tablet 11/21/17 11/26/17 Nystatin 500,000 unit PO QID PRN #100 ml 11/21/17 11/26/17 Morphine ER 30 mg PO BID 11/22/17 11/26/17 Omeprazole 20 mg PO DAILY 11/22/17 11/26/17 - Allergies Allergies/Adverse Reactions: Allergies Allergy/AdvReac Type Severity Reaction Status Date / Time Sulfa (Sulfonamide Allergy Severe Edema Verified 11/17/17 15:48 Antibiotics) epinephrine AdvReac palpitation Verified 11/17/17 15:48 s Review of Systems - Constitutional Constitutional: reports: Fatigue, Weight loss. denies: Fever, Chills - Eyes Eyes: reports: Vision loss - Ears, Nose & Throat Ears, Nose & Throat: reports: Mouth lesions (has not finished nystatin), Dental decay (Has finished antibiotics, she has left-sided discomfort unable to tell if this is related to her teeth are not. Did recommend she follow-up with her dentist regarding ongoing risk for infection.) - Cardiovascular Cardiovascular: reports: Decr. exercise tolerance - Respiratory Respiratory: reports: Orthopnea, SOB at rest, SOB with exertion, Other (reports has continued to not smoke) - Gastrointestinal Gastrointestinal: reports: Other (Difficulty eating secondary to her left facial paralysis, food does dribble out, she is finding ways to "poor in her fluids", working with textures, has found milkshakes and ice cream to be of help. Patient declines any further follow-up with speech therapy to improve her eating). denies: Constipation, Nausea - Genitourinary Genitourinary: denies: Incontinence - Musculoskeletal Musculoskeletal: reports: Back pain, Stiffness, Limited range of motion, Muscle weakness, Other (needing wheelchair secondary to weakness and left "knee" giving out; only able to pivot transfer today) - Integumentary Integumentary: reports: Dryness, Hair changes (alopecia) - Neurological Neurological: reports: General weakness, Memory problems, Slurred speech - Psychiatric Psychiatric: reports: Anxiety - Hematologic/Lymphatic Hematologic/Lymphatic: reports: Anemia (hct 29.1) - All Other Systems All Other Systems: reports: Reviewed and negative Physical Exam - Physical Exam General Appearance: positive: Moderate distress, Anxious Eyes Bilateral: positive: Other (left eye ptosis; lower lid ; is using drops) ENT: positive: Oral lesions (candidiasis improved but still on tongue) Neck: positive: Trachea midline Respiratory: positive: Diminished throughout, Other (no BS LLL about 1/4 up) Abdomen: positive: Soft Skin: positive: Dryness Extremities: positive: No pedal edema Neurologic/Psychiatric: positive: Disoriented to time, Weakness, Facial droop, Slurred/abnml speech Palliative Care - POLST Patient has POLST: Yes POLST Status: DNR, Comfort Measures Pain: Pain worsening, Location (see HPI;) Tiredness/Fatigue: Moderate (4-6) Drowsiness/Sedation: Moderate (4-6) Nausea: Mild (1-3) Depression: Mild (1-3) Anxiety: Moderate (4-6) Dyspnea: Moderate (4-6) Anorexia: Weight loss Sleep: Variable sleep pattern (sleeps only 2-3 hours at a time related to pain) Constipation: No Feelings of wellbeing/Perceived Quality of Life: Fair, Acceptable, Worsening Performance Status: Patient feels like she is managing her own apartment independently with just her friends checking on her. I suspect she could use more help and oversight, but she is quite independent and not quite sure "what they would do". We will continue to pursue in-home assistance, as patient could use assistance with shopping, bathing, and cleaning. I would put her at PPS at 50% - Palliative Care Discussion: Patient remains quite anxious, has met with oncologist, wants to continue treatment. She does recognize she is quite frail, but remains fiercely independent. Will allow palliative care to continue to work with her, currently patient does present with decision-making capacity, though tends to overestimate her current abilities. Baljeet with her, did encourage for him to continue to be part of her care team and hearing the same information to his sister and tracking. - Other Findings/Comments Additional Discussion: Time spent 25 minutes with greater than 50% of this done in counseling regarding pain and symptom management, med compliance, and anticipatory guidance Impression and Recommendations - Palliative Care Impression: This is a 66-year-old woman who continues to decline functionally and cognitively, with a recent stroke with left sided facial weakness, and lower extremity weakness. She has having increased difficulty with caloric intake, dysphagia, tracking, and increasing pain. Patient's goals of care, though recognizing has serious illness, is going to move forward with immunotherapy. Palliative care to continue provide support around pain and symptom management and anticipatory guidance Recommendations/Counseling Done: 1. Pain of neoplastic origin. Patient with escalating left-sided pain, most likely attributed to tumor/bone metastases. Patient has been initiated on long- acting morphine 15 mg twice daily with little relief, will go ahead and increase to 30 mg twice daily secondary to high oxycodone use. Prescriptions provided for 30 mg extended release morphine as well as 240 tabs of oxycodone 5 mg. 2. Medication compliance. Patient takes her medications from a bottle, is not willing to consider Mediset's for better tracking. She is awake full through the night, sleeps a lot during the day. This is not a new pattern for her. She is felt overwhelmed with increased medications from discharge, has stopped the Decadron. We will continue to evaluate if should re-add this. Patient at this point is not thought to have metastatic disease to the brain. 3. Functional decline, this is multifactorial in origin. Some this is related from residual of her recent stroke, continued weight loss, muscle wasting. Patient still lives independently, though this is becoming more difficult. She has declined offer for physical therapy or home PT. She reports she is "not that kind of gal". Thus I suspect she would benefit for safety and strengthening. Patient does have walker and cane in home, has needed wheelchair secondary to fatigue here today for her appointment. 4. Advanced care planning. Patient does have a TAMAR ST in place as DNAR/Comfort measures, and TYRONE Madsen paperwork completed. Patient is having trouble navigating financial matters, will follow up with chief medical physicist in clinic regarding DAISY that she has been working with her. Patient at this point in time goals are to continue with treatment as she now has another option, she was willing to consider hospice prior to this. Her goal is she would like to in her own home when that time comes. Will need some time and planning given her small support network. We will continue to monitor patient's functional status as well as cognitive, assist patient with symptom management as patient allows as well as dictated by her compliance. Patient has had difficulty accepting her decline and still feels like her quality of life, though declining, is acceptable
== END 2017-11-26 12:18 | disposition home or self-care (01) ==
LOC: PC 12:17
PROVIDERS: ATTEND Nurse Practitioner Adult Health
DX: Z51.5 Encounter for palliative care (principal); G89.3 Neoplasm related pain (acute) (chronic); C79.51 Secondary malignant neoplasm of bone; C34.90 Malignant neoplasm of unspecified part of unspecified bronchus or lung; Z91.14 Patient's other noncompliance with medication regimen; I69.392 Facial weakness following cerebral infarction; I69.344 Monoplegia of lower limb following cerebral infarction affecting left non-dominant side; R63.4 Abnormal weight loss; M62.50 Muscle wasting and atrophy, not elsewhere classified, unspecified site; R41.3 Other amnesia; R13.10 Dysphagia, unspecified; B37.0 Candidal stomatitis; Z79.891 Long term (current) use of opiate analgesic; Z99.3 Dependence on wheelchair; Z66 Do not resuscitate; Z60.2 Problems related to living alone; Z87.891 Personal history of nicotine dependence
CPT/HCPCS: 99214

== ENCOUNTER 2017-12-03 13:34 | Outpatient (CLI) | payer MEDICARE ==
--- NOTE | 2017-12-03 20:40 | CONSULTATION NOTE ---
Palliative Care Follow Up - Referral Referring Provider: Dr. Elisa Li Time of Visit: [id number] Referral setting: [facility] [place] Referral Reason: Pain of neoplastic origin/Advanced Small Lung Ca - Information Sources Records reviewed: RN notes reviewed, Previous records reviewed History/Review of Systems obtained from: Patient, Friend (follow up with Baljeet HANSEN) Exam limitations: Clinical condition (patient with STM issues; aware of intermittent confusion) - History of Present Illness Update Brief HPI Update: This is a feisty 66-year-old woman who on 11/21 was hospitalized for a stroke with residual left facial paralysis, dysphagia, and lower extremity left leg weakness. She has advanced small cell lung cancer, and is here at the clinic to receive her immunotherapy. She does present as of significant failure to thrive, she continues with weight loss, she weighs 65 pounds today with a BMI of 13.5. She has escalating pain to her lower back and left rib thoracic area. She is very resistant to having any help or support, particularly in the home. Her friend did find her on the floor the other day, with concern for intermittent confusion. Patient is able to converse and have conversation today, but is aware that she is doing poorly. She reports she has good and bad days, as far as swallowing and being able to get nutrition. Essentially she is using putting smoothies and trying to work with her oral intake by pouring it into her mouth. She denies any choking or aspirating. She is unable to tell me exactly how she is taking her pain medications, she is sleeping intermittently through the day, will take her meds and then trying to eat or take care of her apartment. She is quite overwhelmed as far as following through on anything, her friend is doing grocery shopping, going to the pharmacy, and would do more if she had allowed. She likes to be by herself, watch TV, and does not want anybody "telling her what to do". We did discuss in the context of her continued to decline, I would recommend at this point transition to hospice to be able to put plan and place to meet her goal to have an end-of-life event in her apartment. She tells me she is "almost there". She did agree to home visit for follow-up next week, to revisit this if she has not improved. Social History - Living Situation Living arrangement: At home Living Situation: Alone Support System: Blayne Aponte [phone] is her good friend, continues to try and support her as much as she will allow. He is aware she is declining and may be moving into a place where she will need 24-hour care. He checks on her regularly, and is afraid 1 of these times she will just be gone, we did discuss the possible reality of this given patient's reluctance to have help or supervision Medications/Allergies - Medications Home Medications: Ambulatory Orders Medication Instructions Recorded Confirmed oxyCODONE [Roxicodone] 5 - 10 mg PO Q4H PRN #16 tablet 05/25/17 12/04/17 Albuterol Sulf [Ventolin Hfa 1 - 2 puffs INH Q4HR PRN 09/29/17 12/04/17 Inhaler] Gabapentin 300 mg PO QPM 09/29/17 12/04/17 tiZANidine [Zanaflex] 4 mg PO TID PRN 09/29/17 12/04/17 Budesonide/Formoterol Fumarate 1 neb IH BID PRN #0 10/02/17 12/04/17 [Symbicort 160-4.5 Mcg Inhaler] Aspirin EC [Ecotrin] 325 mg PO DAILY #10 tablet 11/21/17 12/04/17 Ferrous Sulfate 325 mg PO DAILY #15 tablet 11/21/17 12/04/17 Nystatin 500,000 unit PO QID PRN #100 ml 11/21/17 12/04/17 Morphine ER 30 mg PO BID 11/22/17 12/04/17 Omeprazole 20 mg PO DAILY 11/22/17 12/04/17 Fluconazole [Diflucan] 100 mg PO .DAILY X 3 12/04/17 12/04/17 - Allergies Allergies/Adverse Reactions: Allergies Allergy/AdvReac Type Severity Reaction Status Date / Time Sulfa (Sulfonamide Allergy Severe Edema Verified 11/17/17 15:48 Antibiotics) epinephrine AdvReac palpitation Verified 11/17/17 15:48 s Review of Systems - Constitutional Constitutional: reports: Fatigue, Weight loss (65 down from 68 lslst week). denies: Fever - Eyes Eyes: reports: Vision loss, Other (continues with watery eye) - Ears, Nose & Throat Ears, Nose & Throat: reports: Dental decay, Other (continues with difficulty with swallowing related to facial drop) - Cardiovascular Cardiovascular: reports: Exertional dyspnea, Decr. exercise tolerance - Respiratory Respiratory: reports: SOB with exertion - Gastrointestinal Gastrointestinal: reports: Other (difficulty getting food "in"; using smoothies; puddings; gatorades but ablility to swallow fluctuates). denies: Constipation - Musculoskeletal Musculoskeletal: reports: Muscle weakness, Assistive devices (uses cane; wheelchair for long distances; "furniture/wall walks in home") - Integumentary Integumentary: reports: Dryness - Neurological Neurological: reports: General weakness, Memory problems - Psychiatric Psychiatric: reports: Depression, Anxiety - Endocrine Endocrine: reports: Intolerance to cold - Hematologic/Lymphatic Hematologic/Lymphatic: reports: Anemia (hst 29.1) - All Other Systems All Other Systems: reports: Reviewed and negative, Other (reports top of head tender and tingling;) Physical Exam - Vital Signs Temperature: 36.5 C Pulse Rate: 84 Respiratory Rate: 18 Blood Pressure: 103/61 - Physical Exam General Appearance: positive: Moderate distress (having increased pain; trip in car and transfers escalating discomfort), Anxious Eyes Bilateral: positive: Other (left eye without redness; reports using drops/unclear if protecting at night) ENT: positive: Other (reports finished nystatin but tongue still with candidiasis and tender) Neck: positive: Trachea midline Cardiovascular: positive: Tachycardia Respiratory: positive: Diminished throughout, Other (restarted smoking) Abdomen: positive: Soft Skin: positive: Pallor, Dryness Extremities: positive: No pedal edema Neurologic/Psychiatric: positive: Oriented x3, Weakness, Facial droop, Slurred/abnml speech, Depressed mood/affect Palliative Care - POLST Patient has POLST: Yes POLST Status: DNR, Comfort Measures Pain: Pain worsening, Location (Patient's pain is escalating per her report, and identifies it to a band across her back and lower spine as well as into her left thoracic and rib area. Hard to pin down exactly how she is taking her medications, she has started the MS 30 twice a day without much improvement, continues with oxycodone on a regular basis and times it around her activities of managing in the apartment.) Tiredness/Fatigue: Severe (7-10) Drowsiness/Sedation: Moderate (4-6) Nausea: None Depression: Moderate (4-6) Anxiety: Severe (7-10) Dyspnea: Moderate (4-6) Anorexia: Moderate (4-6) (reports she is hungary she just can't eat) Sleep: Variable sleep pattern Constipation: No Feelings of wellbeing/Perceived Quality of Life: Poor, Worsening Performance Status: Patient reports she is managing at home, that she is able to take a bath, she just needs to pace herself. Her friend does report at least one fall, her activity tolerance is limited both by pain and weakness. She has not heard from [facility], was a message from but didn't return call. - Palliative Care Discussion: Patient is quite tearful, she is quite anxious as she has many things that are overwhelming her. She does not appear she is able to follow through on much, she is worried about the billing clinician's to keep calling. She does recognize her ongoing decline, is frustrated she cannot maintain or improve her weight, she desperately wanted to take her treatment today. She does report she is "getting close", when we discussed about does focusing on comfort and being at home and finding support for her to be able meet her goals to be there. She did agree to a home visit next week. Did spend some time with Ray her DPNARENE, he recognizes her decline and fragility, but is trying to respect her wishes as well. He does check on her regularly, and provides as much help as she allows. He does understand she is going to need more and coming up fairly soon. He will continue to reach out if patient becomes more unsafe, or unable to take care of herself. Impression and Recommendations - Palliative Care Impression: This is a 66-year-old woman with advanced small cell lung cancer, severe uncontrolled pain, cognitive and functional decline, along with dealing with the sequela of a stroke with difficulty swallowing, left facial paralysis, and left lower extremity weakness. Patient does recognize with her weight loss, difficulty with her medications, and feeling overwhelmed that she is needing to consider hospice more urgently. Continues to be quite anxious regarding this, but is willing to revisit at visit next week. Palliative care to continue to provide support for pain and symptom management and transition to hospice when patient allows. Recommendations/Counseling Done: 1. Oral candidiasis. Patient unclear was compliant with her nystatin, was difficult for her to use given her facial paralysis. Will go ahead and order Diflucan 100 mg x3 tabs, and reorder her nystatin as I suspect this will be an ongoing problem for her. 2. Pain of neoplastic origin. Patient continues to have escalating pain, unclear regarding her pain regimen if ineffective or if compliance issue. She is quite clear she does not want anybody "telling her how to take her pain pills", which I think is some of the resistance to having the hospice team in. We will continue to work with her to improve her pain management as allowed. 3. Weight loss. Patient is doing what she can given her limitations of swallowing and facial paralysis, she is quite discouraged at her continued weight loss as she perceives she is doing pretty well. We did review though her recent actual intake in last 24-48 hrs., she is able to see that it is less than adequate. She does have a friend who is with shopping and buying things she requests. Did offer her fluids today, but declined anxious to get home and comfortable. 4. Generalized weakness. This is multifactorial in origin including weight loss, dehydration, deconditioning and sequela of her stroke. She has had one known fall, reports she is very careful in her apartment. Is able to acknowledge things are getting more difficult, and she is losing ground. 5. Medication adherence. Patient very poor recall of what she actually is taking, she reports she takes if in the bottles. Sounds like when she ran out of the Atrovastatin she did not continue, Given her confusion and difficulty with meds do not see that is a important medication at this point in time. She takes them out of the bottle, will review at next visit again. Did review though she needs to continue to take the aspirin, she says she is on other things for pain, we reviewed again that this was for her stroke prevention. 6. Advanced care planning. Patient does have a post in place with a DNA are/co mfort measures. Her goal is to have a at home and that time comes, she does recognize she is continued to fail and is willing to revisit considering hospice next week. Her friend Blayne will call in meantime if needs to revisit this sooner. Will follow up with [facility] where [facility] application is at. Time Spent: 40 minutes was given 50% of this done in counseling regarding goals of care, symptom management, and anticipatory guidance
== END 2017-12-03 13:35 | disposition home or self-care (01) ==
LOC: PC 13:34
PROVIDERS: ATTEND Nurse Practitioner Adult Health
DX: Z51.5 Encounter for palliative care (principal); B37.0 Candidal stomatitis; G89.3 Neoplasm related pain (acute) (chronic); R63.4 Abnormal weight loss; E86.0 Dehydration; C34.90 Malignant neoplasm of unspecified part of unspecified bronchus or lung; R41.0 Disorientation, unspecified; R41.3 Other amnesia; I69.392 Facial weakness following cerebral infarction; I69.391 Dysphagia following cerebral infarction; I69.344 Monoplegia of lower limb following cerebral infarction affecting left non-dominant side; T39.016A Underdosing of aspirin, initial encounter; Z91.138 Patient's unintentional underdosing of medication regimen for other reason; R13.10 Dysphagia, unspecified; R62.7 Adult failure to thrive; F41.9 Anxiety disorder, unspecified; Z68.1 Body mass index [BMI] 19.9 or less, adult; Z60.2 Problems related to living alone; Z79.899 Other long term (current) drug therapy; Z99.3 Dependence on wheelchair; Z72.0 Tobacco use; Z66 Do not resuscitate; Z79.891 Long term (current) use of opiate analgesic; Z91.81 History of falling; Z79.82 Long term (current) use of aspirin
CPT/HCPCS: 99215

== ENCOUNTER 2017-12-06 15:17 | Emergency (ER) | payer MEDICARE ==
[2017-12-06] MEDS ORDERED: HYDROmorphone 1 MG/ML CARPUJECT IVP STA ×2 (17:34→19:39)
[2017-12-06] MEDS ORDERED: SODIUM CHLORIDE 0.9% 2,000 ML IV ONE (17:34)
--- NOTE | 2017-12-06 17:39 | ED Physician Documentation ---
History of Present Illness - Stated complaint Stated Complaint: BACK PX - Chief complaint Chief Complaint: General - History obtained from History obtained from: Patient - History of Present Illness Timing: How many weeks ago (several) Pain level max: 0 Pain level now: 0 - Additonal information Additional information: Patient is a 66-year-old female with a history of metastatic small cell lung cancer who is failed whole brain radiation and chemotherapy x2. She continues to decline at home. She has declined hospice this far and has been being followed by palliative care. She has been feeling gradually weaker. Still having difficulty swallowing and eating. She states that her pain is poorly controlled and is unsure if she is taking her medications correctly. She also feels dehydrated. No fevers. No coughing. No vomiting. Review of Systems Ten Systems: 10 systems reviewed and negative Constitutional: denies: Fever, Chills Ears: denies: Ear pain Nose: denies: Rhinorrhea / runny nose, Congestion Throat: denies: Sore throat Cardiac: denies: Chest pain / pressure Respiratory: denies: Dyspnea, Cough GI: denies: Abdominal Pain, Vomiting, Diarrhea : denies: Dysuria Skin: denies: Rash Musculoskeletal: denies: Neck pain, Back pain Neurologic: denies: Headache PD PAST MEDICAL HISTORY - Past Medical History Cardiovascular: High cholesterol, Murmur Respiratory: COPD, Emphysema, Shortness of breath Neuro: CVA Endocrine/Autoimmune: None GI: GERD, Ulcers : None HEENT: Other Psych: Anxiety Musculoskeletal: Rheumatoid arthritis, Chronic back pain Derm: None - Past Surgical History Past Surgical History: Yes General: Appendectomy, Other Ortho: Spine surgery, 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, 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 Cardiovascular: Other HEENT: Tonsil/Adenoidectomy - Present Medications Home Medications: Ambulatory Orders Medication Instructions Recorded Confirmed oxyCODONE [Roxicodone] 5 - 10 mg PO Q4H PRN #16 tablet 05/25/17 12/04/17 Albuterol Sulf [Ventolin Hfa 1 - 2 puffs INH Q4HR PRN 09/29/17 12/04/17 Inhaler] Gabapentin 300 mg PO QPM 09/29/17 12/04/17 tiZANidine [Zanaflex] 4 mg PO TID PRN 09/29/17 12/04/17 Budesonide/Formoterol Fumarate 1 neb IH BID PRN #0 10/02/17 12/04/17 [Symbicort 160-4.5 Mcg Inhaler] Aspirin EC [Ecotrin] 325 mg PO DAILY #10 tablet 11/21/17 12/04/17 Ferrous Sulfate 325 mg PO DAILY #15 tablet 11/21/17 12/04/17 Nystatin 500,000 unit PO QID PRN #100 ml 11/21/17 12/04/17 Morphine ER 30 mg PO BID 11/22/17 12/04/17 Omeprazole 20 mg PO DAILY 11/22/17 12/04/17 Fluconazole [Diflucan] 100 mg PO .DAILY X 3 12/04/17 12/04/17 - Allergies Allergies/Adverse Reactions: Allergies Allergy/AdvReac Type Severity Reaction Status Date / Time Sulfa (Sulfonamide Allergy Severe Edema Verified 12/06/17 15:34 Antibiotics) epinephrine AdvReac palpitation Verified 12/06/17 15:34 s - Social History Does the pt smoke?: Yes Smoking Status: Current every day smoker Does the pt drink ETOH?: No Does the pt have substance abuse?: No - Immunizations Immunizations are current?: Yes - POLST Patient has POLST: Yes POLST Status: DNR PD ED PE NORMAL - Vitals Vital signs reviewed: Yes - General General: Alert and oriented X 3, No acute distress, Other (Cachectic female) - HEENT HEENT: PERRL, Moist mucous membranes, Other (L sided bells palsy) - Neck Neck: Supple, no meningeal sign - Cardiac Cardiac: RRR, Strong equal pulses - Respiratory Respiratory: No respiratory distress, Clear bilaterally - Abdomen Abdomen: Soft, Non tender, Non distended - Derm Derm: Warm and dry - Neuro Neuro: Alert and oriented X 3 - Psych Psych: Normal mood, Normal affect Results - Vitals Vitals: Vital Signs - 24 hr 12/06/17 12/06/17 12/06/17 15:26 17:27 19:15 Temperature 36.7 C 37.3 C Heart Rate 110 H 93 76 Respiratory 20 14 Rate Blood Pressure 105/82 H 116/83 H O2 Saturation 95 97 96 12/06/17 12/06/17 19:20 20:09 Temperature 36.4 C L Heart Rate 73 86 Respiratory 16 16 Rate Blood Pressure 104/78 123/80 O2 Saturation 97 98 Oxygen O2 Source Room air - Labs Labs: Laboratory Tests 12/06/17 12/06/17 17:45 17:45 WBC 10.5 RBC 2.91 L Hgb 9.5 L Hct 27.6 L MCV 95.1 MCH 32.6 H MCHC 34.3 RDW 19.3 H Plt Count 329 MPV 8.1 Neut # (Auto) 9.6 H Lymph # (Auto) 0.6 L Tama # (Auto) 0.3 Eos # (Auto) 0.0 Baso # (Auto) 0.1 Absolute Nucleated RBC 0.00 Nucleated RBC % 0.0 Sodium 135 Potassium 3.6 Chloride 97 L Carbon Dioxide 22 Anion Gap 16.0 H BUN 37 H Creatinine 0.9 Estimated GFR (MDRD) 63 L Glucose 129 H Calcium 10.0 Total Bilirubin 1.0 AST 53 H ALT 19 Alkaline Phosphatase 101 Total Protein 8.4 H Albumin 3.1 L Globulin 5.3 H Albumin/Globulin Ratio 0.6 L Lipase 87 H PD MEDICAL DECISION MAKING - ED course Complexity details: reviewed results, re-evaluated patient, considered different ial, d/w patient ED course: Patient is a 66-year-old female with 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 She feels much better after IV fluids and is tolerating p.o. without difficulty. No acute laboratory abnormalities that require admission. We will have her follow-up with her doctor for further care. Patient counseled regarding signs and symptoms for which I believe and urgent re-evaluation would be necessary. Patient with good understanding of and agreement to plan and is comfortable going home at this time This document was made in part using voice recognition software. While efforts are made to proofread this document, sound alike and grammatical errors may occur. Departure - Departure Disposition: 01 Home, Self Care Clinical Impression: Dehydration Condition: Good Instructions: ED Dehydration Follow-Up: GREGG ZAMAN [Primary Care Provider] - Within 3 Days Comments: you should eat a soft diet at home. Return if you worsen. Follow up with your doctor for further care. Discharge Date/Time: 12/06/17 20:23
[2017-12-06 18:01] LABS: BASOPHILS # (AUTO) 0.1 10^3/uL (0.0-0.1); BASOPHILS % (AUTO) 0.5 %; HGB - HEMOGLOBIN 9.5 g/dL (12.0-16.0); LYMPHOCYTES # (AUTO) 0.6 10^3/uL (1.5-3.5); MEAN CORPUSCULAR HEMOGLOBIN 32.6 pg (27.0-31.0); MEAN CORPUSCULAR HGB CONC 34.3 g/dL (32.0-36.0); MEAN CORPUSCULAR VOLUME 95.1 fL (81.0-99.0); MEAN PLATELET VOLUME 8.1 fL (7.9-10.8); MONOCYTES # (AUTO) 0.3 10^3/uL (0.0-1.0); MONOCYTES % (AUTO) 2.5 %; NEUTROPHILS # (AUTO) 9.6 10^3/uL (1.5-6.6); PLT - PLATELET COUNT 329 10^3/uL (130-450); RED BLOOD COUNT 2.91 10^6/uL (4.20-5.40); RED CELL DISTRIBUTION WIDTH 19.3 % (12.0-15.0); WHITE BLOOD COUNT 10.5 x10^3/uL (4.8-10.8)
[2017-12-06 18:15] LABS: ALBUMIN 3.1 g/dL (3.2-5.5); ALBUMIN/GLOBULIN RATIO 0.6 (1.0-2.2); CREATININE 0.9 mg/dL (0.4-1.0); TOTAL PROTEIN 8.4 g/dL (6.7-8.2)
[2017-12-06 20:11] VITALS: BP 123/80
== END 2017-12-06 20:23 | disposition home or self-care (01) ==
LOC: ED 15:17
DX: E86.0 Dehydration (principal); G51.0 Bell's palsy; C34.90 Malignant neoplasm of unspecified part of unspecified bronchus or lung; M06.9 Rheumatoid arthritis, unspecified; E78.00 Pure hypercholesterolemia, unspecified; Z92.21 Personal history of antineoplastic chemotherapy; Z92.3 Personal history of irradiation; Z79.82 Long term (current) use of aspirin
CPT/HCPCS: 36415; 80053; 83690; 85025; 96361; 96374; 96376; 99283; 99284; J1170

== ENCOUNTER 2017-12-09 12:15 | Outpatient (CLI) | payer MEDICARE, MEDICAID ==
--- NOTE | 2017-12-09 17:49 | CONSULTATION NOTE ---
Palliative Care Follow Up - Referral Referring Provider: Dr. Elisa Li Time of Visit: [id number] Referral setting: Home (Is a taxing considerable effort for the patient leave the home, she is quite weak, uncontrolled pain, and is imminently transitioning to end-of-life.) Referral Reason: Advanced Small Cell Lung Cancer/Dysphagia/Dehydration - Information Sources Records reviewed: Previous records reviewed History/Review of Systems obtained from: Patient, Family (Ray friend and DPOA present) Exam limitations: Clinical condition (patient mildly confused but able to communicate her wishes) - History of Present Illness Update Brief HPI Update: This is a feisty 66-year-old woman who has continued to be a failure to thrive, she has 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 She does have advanced small cell lung cancer, and received a dose of immunotherapy. She is continued to lose weight, experiencing escalating pain, difficulty with medication adherence mostly related to swallowing, and had recently been in the ED for rehydration. She did have a low-grade temp noted there at 37.2, and a WBC count that was creeping up. She continued to fail over the weekend, with increased difficulty swallowing, more falls, and her friend Blayne did spend the night last night assisting her back and forth to the bathroom. She presents today with saying that she is "sick of being in pain". She is ready to transition to hospice, she "just wants to be ", she does understand though it is raised decision whether she can stay at home as he would be the primary caregiver. Most likely she has aspirated, she does have a temp of 99.6, O2 sats at 90%, and pulse 106. She has been unable to keep up with any kind of fluids, and having increasing difficulty taking her oral pain meds. She reports she is taking MS Contin 30 mg 2-3 times in 24 hours as well as up to 12 tabs of oxycodone as she takes 3 at a time. And these are 5 mg. She does have medications spread all over, she is unable to tell me what she is taken, though does appear like she has taken her Diflucan and her candidiasis is better. Her goal is to "just peacefully" and she would really like to be at home. Social History - Living Situation Living arrangement: At home Living Situation: Alone Support System: Her friend garrett has been a significant support over the last several years, she has lived with him before. He is willing to assist with taking care of her, but is feeling somewhat overwhelmed, particularly around toileting issues. She does have a daughter, she is estranged she is not shared any details regarding this. She can has some friends but none that she identified that can assist with caregiving. Medications/Allergies - Medications Home Medications: Ambulatory Orders Medication Instructions Recorded Confirmed tiZANidine [Zanaflex] 4 mg PO TID PRN 09/29/17 12/09/17 Nystatin 500,000 unit PO QID PRN #100 ml 11/21/17 12/09/17 LORazepam [Ativan] 1 - 2 ml PO Q4HR PRN 12/09/17 12/09/17 Morphine Sulfate [Morphine Sulf 10 - 20 mg PO .Q2 PRN 12/09/17 12/09/17 Oral (Roxanol)] fentaNYL 50 MCG PATCH [Duragesic 50 mcg TOP .Q 3 DAYS 12/09/17 12/09/17 50mcg patch] - Allergies Allergies/Adverse Reactions: Allergies Allergy/AdvReac Type Severity Reaction Status Date / Time Sulfa (Sulfonamide Allergy Severe Edema Verified 12/06/17 15:34 Antibiotics) epinephrine AdvReac palpitation Verified 12/06/17 15:34 s Review of Systems - Constitutional Constitutional: reports: Fatigue, Fever, Poor appetite, Weight loss - Ears, Nose & Throat Ears, Nose & Throat: reports: Dry mouth (improved with tx of candidiasis) - Cardiovascular Cardiovascular: reports: Exertional dyspnea, Decr. exercise tolerance - Respiratory Respiratory: reports: SOB with exertion - Gastrointestinal Gastrointestinal: reports: Poor appetite (difficulty eating with left facial paralysis). denies: Diarrhea, Nausea - Genitourinary Genitourinary: denies: Incontinence - Musculoskeletal Musculoskeletal: reports: Muscle weakness, Assistive devices (needing max assist with walker and caregiver) - Integumentary Integumentary: reports: Dryness - Neurological Neurological: reports: General weakness, Memory problems - Psychiatric Psychiatric: reports: Anxiety. denies: Depression - Endocrine Endocrine: reports: Intolerance to cold - Hematologic/Lymphatic Hematologic/Lymphatic: reports: Anemia - All Other Systems All Other Systems: reports: Reviewed and negative - Other Findings Other Findings: limited by patient recall Physical Exam - Vital Signs Temperature: 99.6 C Pulse Rate: 106 Respiratory Rate: 20 O2 Saturation: 90 (ra @ rest) - Physical Exam General Appearance: positive: Severe distress (with uncontrolled pain), Anxious Eyes Bilateral: positive: Normal inspection ENT: positive: Dry mucous membranes. negative: Pharyngeal erythema, Oral lesions Neck: positive: Trachea midline Cardiovascular: positive: Tachycardia Respiratory: positive: Diminished throughout. negative: Wheezes, Rales, Rhonchi Abdomen: positive: Other (concave) Skin: positive: Pallor, Dryness Extremities: positive: No pedal edema Neurologic/Psychiatric: positive: Disoriented to time, Facial droop (left sided) Palliative Care - POLST Patient has POLST: Yes POLST Status: DNR, Comfort Measures (redid; unable to locate original with Dr. Li; sent copy to hospice and put on fridge) Pain: Pain worsening, Location (through chest and rib areas; cannot stand touch or pressure; repositioned frequently during visit; appears to have been taking about 60-90 mg MS with 60 mg oxycodone; difficulty because of patient's poor recall; pain severe despite taking 15 mg oxycodone at visit; difficulty taking tabs) Tiredness/Fatigue: Severe (7-10) Drowsiness/Sedation: Mild (1-3) Nausea: None Depression: Mild (1-3) Anxiety: Moderate (4-6) (wanting to at home; worried about meeting her goal) Anorexia: Severe (7-10), Weight loss Sleep: Sleeps poorly (reports only sleeping a couple hours a time because of the pain), Variable sleep pattern Constipation: Comment (unknown) Feelings of wellbeing/Perceived Quality of Life: Poor, Worsening Performance Status: Patient mostly bed bound, is able to ambulate with max assist a few feet with her friend Blayne. It is been more difficult to get to the bathroom, will be ordering commode, depends, and possible Rosa cath placement. - Palliative Care Discussion: Patient has been failing over the last several weeks, and mostly over the last few days is unable to keep up with food and fluids, escalating pain, and increased weakness. Patient does recognize that it is time to transition to hospice, she very much wants to be at home, but this is "Ray's decision". Patient does have some awareness, of the burden she is putting on her friend, but they have had conversations about this before. He does seem committed to her, but overwhelmed. He is somewhat worried about the toileting issue, but will "do it if I have to". We did discuss hospice support does not include on- call depends change, but can make arrangements for ongoing care, possibly Rosa placement, as well as if she is not eating or drinking less chance of this being a problem. Patient has had several falls, she really would like "just let me peacefully". She wants to be out of pain, she wants to be sedated and not aware of what is going on. She request we aggressively manage her, even if she is and not able to participate. Currently she is unable really to take any oral medications, it would be very much overwhelming to do any kind of IV infusion in this current setting, and though not ideal, will go ahead and use fentanyl patches and oral morphine, this was accepted both by the patient and her caregiver Blayne. We did discuss possibly going in the hospital, but that they would place her from there, actually most likely into a halfway. She has a very sweet little spot, that she has found much comfort in, she has all her Diane Boop paraphernalia as well as her other collections. They have not finished any kind of shreyas application, so most likely would experience an extended and possible in the hospital. After much conversation, Blayne had is willing and wanting to support her and her wishes, fortunately hospice is available to admit this afternoon. Will move forward with our transition plan. 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 She is currently ready to transition to hospice, her goal is to have her pain controlled, and at home. Hospice to admit this afternoon. Recommendations/Counseling Done: 1.Pain of neoplastic origin, poorly controlled. Given her difficulty with dysphagia, will go ahead and initiate Duragesic 50 mcg patch, this may be under equal analgesia, but as best I can tell she has about 120-30 mEq of morphine board in 24 hours. Also ordered MS 20 mg/ml, to give 10-20 mils every 2 hours as needed for breakthrough pain. This is to be initiated and instructions given by hospice nurse on admit today, prescriptions written and track down where available. Patient's main goal is to have her pain controlled, recognizing that she will be most likely sedated through this process, which is her goal. 2. Dehydration. Patient with dysphagia that is not improving, most likely unable to keep up with her food and fluid needs, Does not want to look at medically supportive nutrition, thus we will continue to adjust keep her mouth moist, and drink for comfort if she is awake and alert. They are aware she will have less intake, and this is part of the natural dying process. Encourage not to force it, as she already has symptoms of aspiration. 3. Advanced care planning. Patient's ultimate goal is to at home, with her pain controlled, and not to leave her current setting. Coordination of care with hospice, they are going to admit her this afternoon, equipment ordered and medications arranged for pickup. Blayne has agreed to be her primary caregiver, recognizing hospice will provide support, but is not 24-hour care. He may reach out to his friend Tiera who might be able to help with some caregiving. Patient has been in the process of doing SHREYAS, I suspect given her shortened prognosis this may not be of help at this point. They are going to need some assistance with planning and finances regarding this. Time Spent: 60 minutes with greater than 50% of this done and counseling and eliciting goals of care, family counseling with Blayne regarding taking on primary caregiving, coordination of care with hospice, notified primary care provider Dr. Oreilly as well as [facility] clinic.
== END 2017-12-09 12:16 | disposition home or self-care (01) ==
LOC: PC 12:15
PROVIDERS: ATTEND Nurse Practitioner Adult Health
DX: Z51.5 Encounter for palliative care (principal); G89.3 Neoplasm related pain (acute) (chronic); C34.90 Malignant neoplasm of unspecified part of unspecified bronchus or lung; C79.51 Secondary malignant neoplasm of bone; E86.0 Dehydration; R50.9 Fever, unspecified; D72.829 Elevated white blood cell count, unspecified; I69.392 Facial weakness following cerebral infarction; I69.391 Dysphagia following cerebral infarction; I69.344 Monoplegia of lower limb following cerebral infarction affecting left non-dominant side; R13.10 Dysphagia, unspecified; R62.7 Adult failure to thrive; Z91.81 History of falling; Z79.891 Long term (current) use of opiate analgesic; Z66 Do not resuscitate; Z74.01 Bed confinement status; Z79.899 Other long term (current) drug therapy
CPT/HCPCS: 99350